=== PATIENT | male | born 1935 | race Caucasian/White ===

== ENCOUNTER 2017-06-04 08:00 | Outpatient (CLI) | payer MEDICARE, BC | END 2017-06-04 08:01 | disposition home or self-care (01) | LOC: LAB.R 08:00 | PROVIDERS: ATTEND Nurse Practitioner Primary Care | DX: N39.0 Urinary tract infection, site not specified (principal) | CPT/HCPCS: 87086 ==

== ENCOUNTER 2017-06-14 08:00 | Outpatient (CLI) | payer MEDICARE, BC ==
[2017-06-14 13:21] LABS: BILIRUBIN,URINE NEGATIVE (NEGATIVE)
[2017-06-14 13:22] LABS: UA CHARGE (STRIP ONLY) YES; UR CULTURE IF IND NOT INDICATED
== END 2017-06-14 08:01 | disposition home or self-care (01) ==
LOC: LAB.R 08:00
PROVIDERS: ATTEND Nurse Practitioner Primary Care
DX: N39.0 Urinary tract infection, site not specified (principal)
CPT/HCPCS: 81001; 81003; 87086

== ENCOUNTER 2018-08-15 16:53 | Outpatient (CLI) | payer MEDICARE, BC ==
[2018-08-15 17:13] LABS: BASOPHILS % (AUTO) 0.3 %; EOSINOPHILS # (AUTO) 0.1 10^3/uL (0.0-0.7); EOSINOPHILS % (AUTO) 2.5 %; HGB - HEMOGLOBIN 15.9 g/dL (14.0-18.0); LYMPHOCYTES # (AUTO) 1.2 10^3/uL (1.5-3.5); LYMPHOCYTES % (AUTO) 21.3 %; MEAN CORPUSCULAR HEMOGLOBIN 33.7 pg (27.0-31.0); MEAN CORPUSCULAR HGB CONC 35.3 g/dL (32.0-36.0); MEAN CORPUSCULAR VOLUME 95.4 fL (80.0-94.0); MEAN PLATELET VOLUME 8.9 fL (7.4-11.4); MONOCYTES # (AUTO) 0.7 10^3/uL (0.0-1.0); MONOCYTES % (AUTO) 11.9 %; NEUTROPHILS # (AUTO) 3.5 10^3/uL (1.5-6.6); PLT - PLATELET COUNT 145 10^3/uL (130-450); RED BLOOD COUNT 4.71 10^6/uL (4.70-6.10); RED CELL DISTRIBUTION WIDTH 13.2 % (12.0-15.0); WHITE BLOOD COUNT 5.5 x10^3/uL (4.8-10.8)
== END 2018-08-15 16:54 | disposition home or self-care (01) ==
LOC: LAB 16:53
PROVIDERS: ATTEND Ophthalmology
DX: H54.3 Unqualified visual loss, both eyes (principal)
CPT/HCPCS: 36415; 85025; 85651; 86140

== ENCOUNTER 2019-04-29 16:00 | Outpatient (CLI) | payer MEDICARE, BC | END 2019-04-29 16:01 | disposition critical access hospital (66) | LOC: EMS 16:00 | PROVIDERS: ATTEND Surgery | DX: M25.559 Pain in unspecified hip (principal); W18.39XA Other fall on same level, initial encounter; Y92.008 Other place in unspecified non-institutional (private) residence as the place of occurrence of the external cause | CPT/HCPCS: A0425; A0429 ==

== ENCOUNTER 2019-04-29 16:08 | Emergency (ER) | payer MEDICARE, BC ==
--- NOTE | 2019-04-29 16:31 | ED Physician Documentation ---
PD HPI Fall - Stated complaint Stated Complaint: GLF - History obtained from History obtained from: Patient - History of Present Illness Mechanism of injury: Lost balance Fall distance: Standing position (He does have history of balance problems. He states he lost his balance when he bent over to get something and fell to the back left. He did hit his posterior left chest against some furniture with some abrasions there but denies any pain with breathing. His main complaint is pain at the left hip which is worse with weightbearing. He has had a prior hip replacement. His was concerned about fracture or dislocation and brought him in for evaluation. He seems to be acting well and normally. He did not have any loss of consciousness. He denies any headache. He is not on any blood thinners.) Where injury occurred: Home Timing - onset: Today (8 am) Injury(ies) location: Left Lower Extremity (left hip) Associated symptoms: No: LOC, AMS, Weakness, Paresthesias Contributing factors: No: Anticoagulated Similar symptoms before: Diagnosis (balance problems baseline) Recently seen: Not recently seen Review of Systems Constitutional: denies: Fever Nose: denies: Rhinorrhea / runny nose, Congestion Throat: denies: Sore throat Cardiac: denies: Chest pain / pressure Respiratory: denies: Dyspnea GI: denies: Abdominal Pain, Nausea, Vomiting Neurologic: denies: Focal weakness, Altered mental status, Headache PD PAST MEDICAL HISTORY - Past Medical History Cardiovascular: None Respiratory: None Endocrine/Autoimmune: None - Past Surgical History Past Surgical History: Yes Ortho: Hip replacement - Present Medications Home Medications: Ambulatory Orders Medication Instructions Recorded Confirmed Aspirin/Dipyridamole [Aggrenox] 1 tab PO DAILY 05/14/16 04/29/19 Memantine [Namenda] 2 tab PO DAILY 05/14/16 04/29/19 Hydrocodone/Acetaminophen [[place] 1 each PO Q6H PRN #15 tablet 04/29/19 5-325 Tablet] - Allergies Allergies/Adverse Reactions: Allergies Allergy/AdvReac Type Severity Reaction Status Date / Time No Known Drug Allergies Allergy Verified 04/29/19 16:35 - Living Situation Living Situation: reports: With spouse/s.o. Living Arrangement: reports: At home - Social History Does the pt smoke?: No Smoking Status: Never smoker Does the pt drink ETOH?: Yes Does the pt have substance abuse?: No - Immunizations Immunizations are current?: No Immunizations: TDAP >10years/unknown PD ED PE NORMAL - Vitals Vital signs reviewed: Yes - General General: Alert and oriented X 3, No acute distress, Well developed/nourished - HEENT HEENT: Atraumatic - Neck Neck: Supple, no meningeal sign, No bony TTP - Cardiac Cardiac: RRR, No murmur - Respiratory Respiratory: Clear bilaterally, Other (no chestwall tenderness) - Abdomen Abdomen: Soft, Non tender - Derm Derm: Normal color - Extremities Extremities: Other (The left hip is tender along the lateral aspect. Passive range of motion as well as rotation and impaction do not cause pain. Active motion does hurt for him in flexion.) - Neuro Neuro: Alert and oriented X 3, No motor deficit, No sensory deficit, Normal speech Eye Opening: Spontaneous Motor: Obeys Commands Verbal: Oriented GCS Score: 15 Results - Vitals Vitals: Vital Signs - 24 hr 04/29/19 16:08 Temperature 36.6 C Heart Rate 76 Respiratory 18 Rate Blood Pressure 146/87 H O2 Saturation 95 Oxygen O2 Source Room air - Rads (name of study) left hip Radiology: Prelim report reviewed, EMP read contemporaneously (Prior hip replacement is noted. There is no obvious just location nor fractures.), See rad report PD MEDICAL DECISION MAKING - ED course Complexity details: reviewed results, considered differential, d/w patient Departure - Departure Disposition: 01 Home, Self Care Clinical Impression: Fall from slip, trip, or stumble Qualifiers: Encounter type: initial encounter Qualified Code(s): W01.0XXA - Fall on same level from slipping, tripping and stumbling without subsequent striking against object, initial encounter Contusion, hip Qualifiers: Encounter type: initial encounter Laterality: left Qualified Code(s): S70.02XA - Contusion of left hip, initial encounter Condition: Stable Record reviewed to determine appropriate education?: Yes Instructions: ED Contusion Hip Follow-Up: Braxton Magana MD [Primary Care Provider] - Prescriptions: Hydrocodone/Acetaminophen [[place] 5-325 Tablet] 1 each PO Q6H PRN #15 tablet PRN Reason: Pain Comments: No signs of fracture seen on your x-ray. The replacement is in place as well. He will presumably be sore with movement and walking for several days or so. Use Tylenol 4 times a day. He can add pain medicine if needed. Stay well- hydrated. Progress activity as able.
[2019-04-29] MEDS ORDERED: HYDROcod/ACETAM 5/325 MG TABLET PO STA (16:51)
--- NOTE | 2019-04-29 17:04 | XRAY Report ---
Reason: fall, unable to bear weight Procedure Date: 04/29/2019 Accession Number: [id number] / [id number] Procedure: XR - Hip w/Pelvis 2-3V LT CPT Code: FULL RESULT: EXAM: LEFT HIP RADIOGRAPHY EXAM DATE: 04/29/2019 04:42 PM. CLINICAL HISTORY: Fall, unable to bear weight. COMPARISON: None. TECHNIQUE: 2 views. FINDINGS: Bones: There is a left hip arthroplasty prosthesis. There is diffuse demineralization. No acute fracture or displaced fracture identified. Joints: The joint space and alignment appear preserved. Soft Tissues: There are moderate diffuse arterial vascular calcifications. IMPRESSION: 1. Diffuse demineralization. No visualized acute fracture. Bilateral total hip arthroplasty. RADIA
[2019-04-29] MEDS ORDERED: KETOROLAC 30 MG/ML VIAL IM STA (17:22)
[2019-04-29 17:51] VITALS: BP 183/106
== END 2019-04-29 17:50 | disposition home or self-care (01) ==
LOC: EDUNIT# → ED 16:08
DX: S70.02XA Contusion of left hip, initial encounter (principal); W01.0XXA Fall on same level from slipping, tripping and stumbling without subsequent striking against object, initial encounter; Y92.009 Unspecified place in unspecified non-institutional (private) residence as the place of occurrence of the external cause; R26.89 Other abnormalities of gait and mobility; Z96.642 Presence of left artificial hip joint; Z79.82 Long term (current) use of aspirin
CPT/HCPCS: 96372; 99283

== ENCOUNTER 2019-05-02 11:50 | Outpatient (CLI) | payer MEDICARE, BC | END 2019-05-02 11:51 | disposition critical access hospital (66) | LOC: EMS 11:50 | PROVIDERS: ATTEND Surgery | DX: M25.552 Pain in left hip (principal); Z91.81 History of falling | CPT/HCPCS: A0425; A0429 ==

== ENCOUNTER 2019-05-02 11:55 | Observation (INO) | payer MEDICARE, BC ==
[2019-05-02] MEDS ORDERED: oxyCODONE 5 MG TABLET PO STA (12:04)
[2019-05-02] MEDS ORDERED: MORPHINE 2 MG/ML CARPUJECT IVP STA ×3 (12:42→14:25)
[2019-05-02 13:02] LABS: BASOPHILS % (AUTO) 0.1 %; EOSINOPHILS # (AUTO) 0.1 10^3/uL (0.0-0.7); EOSINOPHILS % (AUTO) 1.5 %; HGB - HEMOGLOBIN 14.2 g/dL (14.0-18.0); LYMPHOCYTES # (AUTO) 0.7 10^3/uL (1.5-3.5); LYMPHOCYTES % (AUTO) 8.4 %; MEAN CORPUSCULAR HEMOGLOBIN 32.2 pg (27.0-31.0); MEAN CORPUSCULAR HGB CONC 32.9 g/dL (32.0-36.0); MEAN PLATELET VOLUME 10.5 fL (7.4-11.4); MONOCYTES % (AUTO) 12.2 %; NEUTROPHILS # (AUTO) 6.3 10^3/uL (1.5-6.6); NEUTROPHILS % (AUTO) 77.4 %; PLT - PLATELET COUNT 136 10^3/uL (130-450); RED BLOOD COUNT 4.41 10^6/uL (4.70-6.10); WHITE BLOOD COUNT 8.1 x10^3/uL (4.8-10.8)
[2019-05-02 13:16] LABS: ALBUMIN 3.4 g/dL (3.2-5.5); ALBUMIN/GLOBULIN RATIO 1.2 (1.0-2.2); BILIRUBIN,TOTAL 1.4 mg/dL (0.2-1.0); CALCIUM 8.6 mg/dL (8.5-10.3); CREATININE 0.8 mg/dL (0.6-1.2); TOTAL PROTEIN 6.3 g/dL (6.7-8.2)
--- NOTE | 2019-05-02 13:31 | CT Report ---
Reason: L hip pain s/p fall 1 week ago, neg xray Procedure Date: 05/02/2019 Accession Number: [id number] / [id number] Procedure: CT - LOWER EXTREMITY WO - LT CPT Code: FULL RESULT: EXAM: LEFT KNEE CT WITHOUT CONTRAST EXAM DATE: 05/02/2019 12:29 PM. CLINICAL HISTORY: L hip pain s/p fall 1 week ago, neg xray. COMPARISON: None. TECHNIQUE: Thin-section axial images were acquired of the knee without contrast. Post-processing: Coronal and sagittal reformats. Other: None. In accordance with CT protocol optimization, one or more of the following dose reduction techniques were utilized for this exam: automated exposure control, adjustment of mA and/or KV based on patient size, or use of iterative reconstructive technique. FINDINGS: Bones and articular surfaces: Diffusely demineralized. There are well corticated areas of ossification lateral to the left hip. Ossification adjacent to the greater trochanter may reflect an old avulsion injury. 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 Left total hip arthroplasty. Slight protrusio of the acetabular component. Acute or subacute fractures are demonstrated at the lateral base of the left superior pubic ramus. Comminuted fracture at the mid aspect of the left inferior pubic ramus. Visualized portion of the sacrum appears grossly intact. Lower lumbar degenerative disk and facet arthropathy. Mild degenerative change at the left sacroiliac joint. Soft tissues: Atrophy involving portions of the gluteus medius and minimus. Fatty replacement of the piriformis muscle. IMPRESSION: 1. Acute or subacute fractures involving the left superior and inferior pubic rami. RADIA
--- NOTE | 2019-05-02 13:39 | ED Physician Documentation ---
PD HPI LOWER EXT INJURY - Stated complaint Stated Complaint: L HIP PX - Chief complaint Chief Complaint: Ext Problem - History obtained from History obtained from: Patient, Family - History of Present Illness PD HPI LOW EXT INJURY LOCATION: Left, Hip Type of injury: Fall Where injury occurred: Home Timing - onset: How many days ago (3) Timing - duration: Days (3) Timing - details: Abrupt onset Pain level max: 7 Pain level now: 6 Improved by: Rest, Ice, Immobilization Worsened by: Moving, Palpating Associated symptoms: No: Weakness, Numbness, Tingling, Swelling Contributing factors: Prior ortho surgery (B hip replacements). No: Anticoagulated Similar symptoms before: Has not had sx before Recently seen: Not recently seen Review of Systems Ten Systems: 10 systems reviewed and negative Constitutional: denies: Fever, Chills Ears: denies: Ear pain Nose: denies: Rhinorrhea / runny nose, Congestion Respiratory: denies: Cough GI: denies: Nausea, Vomiting Skin: denies: Rash Musculoskeletal: denies: Neck pain, Back pain Neurologic: denies: Focal weakness, Numbness, Headache PD PAST MEDICAL HISTORY - Past Medical History Past Medical History: No Cardiovascular: None Respiratory: None Neuro: Dementia, CVA Endocrine/Autoimmune: None GI: None : None HEENT: None Psych: None Musculoskeletal: None Derm: None - Past Surgical History Past Surgical History: Yes Ortho: Hip replacement - Present Medications Home Medications: Ambulatory Orders Medication Instructions Recorded Confirmed Aspirin/Dipyridamole [Aggrenox] 1 tab PO DAILY 05/14/16 05/02/19 Memantine [Namenda] 10 mg PO BID 05/14/16 05/02/19 Latanoprost 0.005% Ophth Drops 1 drops LEFTEYE QPM 05/02/19 05/02/19 [Xalatan Ophth Drops] Meloxicam [Mobic] 15 mg PO DAILY 05/02/19 05/02/19 Silodosin 8 mg PO DAILY 05/02/19 05/02/19 Timolol 0.5% Ophth Drops [Timoptic 1 drops LEFTEYE DAILY 05/02/19 05/02/19 0.5% Ophth Drops] - Allergies Allergies/Adverse Reactions: Allergies Allergy/AdvReac Type Severity Reaction Status Date / Time No Known Drug Allergies Allergy Verified 06/19/19 16:35 - Social History Does the pt smoke?: No Smoking Status: Never smoker Does the pt drink ETOH?: Yes Does the pt have substance abuse?: No - Immunizations Immunizations are current?: No Immunizations: TDAP >10years/unknown - POLST Patient has POLST: No PD ED PE NORMAL - Vitals Vital signs reviewed: Yes - General General: Alert and oriented X 3, No acute distress - HEENT HEENT: Atraumatic, PERRL, Moist mucous membranes - Neck Neck: Supple, no meningeal sign, No bony TTP - Cardiac Cardiac: RRR - Respiratory Respiratory: No respiratory distress, Clear bilaterally - Abdomen Abdomen: Soft, Non tender, Non distended - Derm Derm: Warm and dry - Extremities Extremities: Other (R leg, chronic deformity to the foot and ankle. L leg - TTP over the pubic ramus. NVI. no ecchymosis.) - Neuro Neuro: Alert and oriented X 3 - Psych Psych: Normal mood, Normal affect Results - Vitals Vitals: Vital Signs - 24 hr 05/02/19 05/02/19 05/02/19 11:58 13:32 15:00 Temperature 37.2 C 36.9 C Heart Rate 79 64 65 Respiratory 18 16 16 Rate Blood Pressure 141/88 H 125/79 99/73 O2 Saturation 98 95 94 Oxygen O2 Source Room air - Labs Labs: Laboratory Tests 05/02/19 05/02/19 05/02/19 12:55 12:55 14:39 WBC 8.1 RBC 4.41 L Hgb 14.2 Hct 43.2 MCV 98.0 H MCH 32.2 H MCHC 32.9 RDW 13.0 Plt Count 136 MPV 10.5 Neut # (Auto) 6.3 Lymph # (Auto) 0.7 L [place] # (Auto) 1.0 Eos # (Auto) 0.1 Baso # (Auto) 0.0 Absolute Nucleated RBC 0.00 Nucleated RBC % 0.0 Sodium 135 Potassium 4.3 Chloride 100 L Carbon Dioxide 25 Anion Gap 10.0 BUN 33 H Creatinine 0.8 Estimated GFR (MDRD) 92 Glucose 143 H Calcium 8.6 Total Bilirubin 1.4 H AST 21 ALT 12 Alkaline Phosphatase 62 Total Protein 6.3 L Albumin 3.4 Globulin 2.9 Albumin/Globulin Ratio 1.2 Lipase 28 Urine Color DARK YELLOW Urine Clarity CLEAR Urine pH 6.5 Ur Specific [place] 1.020 Urine Protein TRACE Urine Glucose (UA) NEGATIVE Urine Ketones NEGATIVE Urine Occult Blood MODERATE H Urine Nitrite NEGATIVE Urine Bilirubin NEGATIVE Urine Urobilinogen 1 (NORMAL) Ur Leukocyte Esterase NEGATIVE Urine RBC 11-25 H Urine WBC 0-3 Ur Squamous Epith Cells RARE Squamous Urine Bacteria None Seen Ur Microscopic Review INDICATED Urine Culture Comments NOT INDICATED - Rads (name of study) ct L hip Radiology: Prelim report reviewed, EMP read contemporaneously, See rad report (L inferior and superior pubic rami fx.) PD MEDICAL DECISION MAKING - ED course Complexity details: reviewed results, re-evaluated patient, considered differential, d/w patient, d/w family, d/w collection systems consultant ED course: 84-year-old male with a left superior and inferior pubic ramus fracture. Nonsurgical. Patient is unable to ambulate even with several doses of IV pain medication. Unable to use a walker. He is also mostly blind. He is a 2 person max assist at this point. As we are unable to control his pain adequately for him to ambulate, will place in observation. Discussed the case with Dr. Gongora, hospitalist who accepts This document was made in part using voice recognition software. While efforts are made to proofread this document, sound alike and grammatical errors may occur. Departure - Departure Disposition: ED Place in Observation Clinical Impression: Intractable pain, Dehydration Pubic ramus fracture Qualifiers: Encounter type: initial encounter Fracture type: closed Laterality: left Qualified Code(s): S32.592A - Other specified fracture of left pubis, initial encounter for closed fracture Condition: Stable Discharge Date/Time: 05/02/19 16:23
[2019-05-02] MEDS ORDERED: SODIUM CHLORIDE 0.9% 1,000 ML IV ONE (14:25)
[2019-05-02 14:59] LABS: BILIRUBIN,URINE NEGATIVE (NEGATIVE); GLUCOSE, URINE (UA) NEGATIVE (NEGATIVE); KETONES,URINE (UA) NEGATIVE (NEGATIVE); LEUKOCYTE ESTERASE, URINE NEGATIVE (NEGATIVE); NITRITE,URINE NEGATIVE (NEGATIVE); OCCULT BLOOD,URINE MODERATE (NEGATIVE); PH,URINE 6.5 PH (5.0-7.5); PROTEIN,URINE TRACE mg/dL (NEGATIVE); UROBILINOGEN,URINE 1 (NORMAL) E.U./dL (NORMAL)
[2019-05-02 15:15] LABS: CLARITY,URINE CLEAR (CLEAR)
[2019-05-02 15:16] LABS: BACTERIA,URINE None Seen /HPF (None Seen); SQUAMOUS EPITHELIAL CELL,UR RARE Squamous (<= Few)
[2019-05-02] MEDS ORDERED: MORPHINE 2 MG/ML CARPUJECT IVP PRN (16:23)
[2019-05-02] MEDS ORDERED: oxyCODONE 5 MG TABLET PO PRN (16:23)
--- NOTE | 2019-05-02 16:33 | HISTORY & PHYSICAL EXAMINATION ---
Chief Complaint - Chief Complaint Chief Complaint: left hip pain, fall History of Present Illness - Admitted From Admitted From:: ED - History Obtained From Records Reviewed: yes History obtained from: chart review, patient, family Exam Limitations: AMS - History of Present Illness HPI Comment/Other: Rajesh Farmer is an 84-year old male with a past medical history of hypertension, proximal muscle weakness, glaucoma, macular degeneration, legal blindness, essential tremor, CVA, dementia, decubitis ulcer, left hip pain, os teoporosis, recurrent UTI, BPH, and frequent falls. The patient fell while reaching for an object 3 days ago (04/29/19) and hurt his left hip. His had to call their son-in-law to help get him off the floor. After getting up, he managed to get into the bathroom, but had severe left hip and left leg pain. They went to the ED, and were sent home since imaging revealed no fracture. He was prescribed Meloxicam, but could not manage any ambulation since arriving back home. This morning, since the patient could no longer walk, family brought him back to the ED and a new image showed a pubis ramus fracture both in the left inferior and superior that are acute and subacute. Labs show slight dehydration with a BUN of 33, chloride 100, glucose 143, total bili 1.4. Vital signs show a temp of 37.2 C, heart rate 79, blood pressure 141/88, oxygen saturation 98% on room air. The was no chest x-ray completed, but the patient has been having more coughing with food or drink lately, he has been bed bound for the past 48 hours, and he has a history of pneumonia. He has been admitted to observation for intractable pain, an inability to walk, and a PT evaluation. History - Past Medical History Cardiovascular: reports: Hypertension, High cholesterol Respiratory: reports: None Neuro: reports: Dementia, CVA (stroke 2004) Endocrine/Autoimmune: reports: None GI: reports: None LISW: reports: None : reports: Benign prostate hypertrophy, Nocturia, Frequency HEENT: reports: Chronic vision loss, Glaucoma, Macular degeneration Psych: reports: Other (dementia) Musculoskeletal: reports: Osteoarthritis, Osteoporosis, Other (DJD) Derm: reports: None MRSA Hx?: No - Past Surgical History Ortho: reports: Hip replacement Other past surgical history: hernia repair, inguinal and hydrocele. Hip replacement 1991 and 1994. Hip replacement 2006, periprostatic fracture of the right - Family & Social History Family History: Mother: , Diabetes, Type 2, Father: , COPD/Emphysema, Sister: , Alzheimer's Disease, Diabetes, Type 2, Brother: , Cancer Family History Comment/Other: Father: emphysema from WWI. Mother: DM. Brother: pancreatic cancer. Sister: DM, dementia Living arrangement: At home Living Situation: With spouse/s.o. Social History Notes: The patient lives at home with is , independently. They have 4 grown children. For the past 4 balbuena they have been traveling from [place] to [facility] and have bought a vacation home on the [place]. The patient states that he sleeps alot (all night and naps throughout the day). The patient has had increasing difficulty with ambulation at home and uses a cane, or a 4-wheeled walker. The patient has never smoked, occasional alcohol use, no illicit drug use. He wishes to be a DNR. - Substance History Use: Uses substance without health or social issues: NONE Abuse: Recurrent use of substance despite neg consequences: NONE Dependence: Experiences withdrawal or developed tolerances: NONE - POLST Patient has POLST: No POLST Status: DNR Meds/Allgy - Home Medications Home Medications: Ambulatory Orders Medication Instructions Recorded Confirmed Aspirin/Dipyridamole [Aggrenox] 1 tab PO DAILY 05/14/16 05/02/19 Memantine [Namenda] 10 mg PO BID 05/14/16 05/02/19 Latanoprost 0.005% Ophth Drops 1 drops LEFTEYE QPM 05/02/19 05/02/19 [Xalatan Ophth Drops] Meloxicam [Mobic] 15 mg PO DAILY 05/02/19 05/02/19 Silodosin 8 mg PO DAILY 05/02/19 05/02/19 Timolol 0.5% Ophth Drops [Timoptic 1 drops LEFTEYE DAILY 05/02/19 05/02/19 0.5% Ophth Drops] - Allergies Allergies/Adverse Reactions: Allergies Allergy/AdvReac Type Severity Reaction Status Date / Time No Known Drug Allergies Allergy Verified 04/29/19 16:35 Review of Systems - Constitutional Constitutional: reports: Fatigue, Weakness - Eyes Eyes: reports: Vision loss, Corrective lenses - Ears, Nose & Throat Ears, Nose & Throat: reports: Hearing loss - Cardiovascular Cariovascular: reports: Edema, Syncope, Decr. exercise tolerance - Respiratory Respiratory: reports: Cough, Snoring - Genitourinary Genitourinary: reports: Dysuria, Frequency, Nocturia - Musculoskeletal Musculoskeletal: reports: Back pain, Muscle aches, Stiffness, Limited range of motion, Muscle weakness, Joint pain, Joint swelling - Integumentary Integumentary: reports: Dryness, Other (chronic pressure ulcer) - Neurological Neurological: reports: General weakness, Focal weakness, Memory problems, Pre- existing deficit, Abnormal gait, Incoordination - Hematologic/Lymphatic Hematologic/Lymphatic: reports: Recurrent infections - All Other Systems All Other Systems: reports: Reviewed and negative Prior Level of Functionality: Lives independently, uses a cane, and at times, a 4-wheeled walker, falls a few times per year. Has not been driving for the past 2-3 years. Exam - Vital Signs Reviewed Vital Signs: Yes Vital Signs: Vital Signs x48h Temp Pulse Resp BP Pulse Ox 05/02/19 15:46 57 L 12 135/67 H 95 05/02/19 15:00 36.9 C 65 16 99/73 94 05/02/19 13:32 37.2 C 64 16 125/79 95 05/02/19 11:58 79 18 141/88 H 98 - Physical Exam General Appearance: positive: Mild distress, Lethargic Eyes Bilateral: positive: PERRL ENT: positive: Pharynx nml, Dry mucous membranes Neck: positive: Thyroid nml, No JVD, Stiff neck Respiratory: positive: Chest non-tender, No respiratory distress, Other (diminished) Cardiovascular: positive: Regular rate & rhythm, No gallop, Systolic murmur Peripheral Pulses: positive: 1+ Abdomen: positive: Non-tender, Nml bowel sounds Back: positive: Nml inspection Skin: positive: No rash, Warm, Dry, Pallor, Decubitus (buttock) Extremities: positive: Non-tender, Full ROM Neurologic/Psychiatric: positive: Oriented x3, Disoriented to time, Weakness, Sensory loss, Slurred/abnml speech (baseline sluggish speech), Depressed mood/affect Reflexes: Bicep (R): 2+, Bicep (L): 2+ Conclusion/Plan - Problem List (1) Intractable pain Conclusion/Plan: - Patient was prescribed Meloxicam at home and took around 4 doses - Since arriving in the ED, IV morphine, oxycodone has helped - Patient states that as long as he does not move, he has no pain - Unable to walk or bear weight on left leg Plan: Continue pain control, may consider ortho surgery consult, await PT evaluation (2) Fall from slip, trip, or stumble Conclusion/Plan: - The patient's admits to at least a few falls per year - Baseline shuffled gait - Uses a cane or a 4-wheeled walker at home Plan: Continue nursing cares, await PT evaluation Qualifiers: Encounter type: initial encounter Qualified Code(s): W01.0XXA - Fall on same level from slipping, tripping and stumbling without subsequent striking against object, initial encounter (3) Pubic ramus fracture Conclusion/Plan: - Fractures are acute and subacute, involving the superior and inferior pubic rami - Unable to bear weight on left leg - Uncontrolled pain Plan: Continue with pain control, PT evaluation in the AM Qualifiers: Encounter type: initial encounter Fracture type: closed Laterality: left Qualified Code(s): S32.592A - Other specified fracture of left pubis, initial encounter for closed fracture (4) Dysuria Conclusion/Plan: - May be from dehydration - May also from pelvic fracture - Having trouble once arriving to the nursing floor, unable to urinate Plan: Continue to bladder scan Q shift, indwelling lopez if bladder scans are high, give IV fluids (5) Dehydration Conclusion/Plan: - Elevated BUN, and glucose on admission - Patient has not been eating or drinking well since injury - Dry mucous membranes on exam Plan: Give gentle IV fluids, routine labs (6) BPH (benign prostatic hyperplasia) Conclusion/Plan: - Takes Rapaflo at home - Dysuria on exam, possibly retaining urine - Now non-mobile Plan: Continue med, IV fluids, bladder scans every shift, consider indwelling lopez if no improvement (7) CVA (cerebral vascular accident) Conclusion/Plan: - No known physical residual, besides worsening dementia - Takes Aggrenox, continued here Plan: Continue meds, monitor mental status (8) Dementia Conclusion/Plan: - Has not officially been screened for Parkinson's disease, but has a shuffled gait, tremors and dementia - admits to short term memory loss, repeats phrases, less speech in general - Also is known to cough after and during eating, but states this is his due to his back anatomy (scholiosis) - Takes Namenda at home, but may be contributing to falls Plan: Continue to monitor mental status, hold Namenda since we are giving narcotics (9) Osteoporosis Conclusion/Plan: - Takes vitamin D3 at home - Status post bilateral hip replacements, now with a pelvic fracture - This fall was not considered traumatic, and would not have caused fractures in someone without osteoporosis Plan: Continue to treat acute pain, continue Vitamin D3 daily (10) Recurrent UTI (urinary tract infection) Conclusion/Plan: - The patient has had several of UTIs - Now with dysuria - Also with a history of BPH, takes Rapaflo at home, continued here - Urine sample from the ED shows moderate occult, but not infection Plan: Continue to bladder scan Q shift, monitor urine output, daily labs (11) Cough Conclusion/Plan: - Patient's explains that the patient has had coughing that is more noticeable after eating or drinking - Now with prolonged bed rest for the past 48 hours since falling at home - Scattered crackles to bilateral lobes on exam - No admission chest x-ray, now ordered Plan: Incentive spirometry, await x-ray (12) Essential tremor Conclusion/Plan: - explains that this is most noticeable to the patient's right hand - Takes Namenda at home - Noted on my exam- bilateral with arms extended - Has never been worked up for Parkinson's Plan: Continue to monitor, IV fluids - Lab Results Lab results reviewed: Yes Fish Bones: 05/02/19 12:55 05/02/19 12:55 - Diagnostic Imaging Results Diagnostic Imaging Results: positive: Final report reviewed Diagnostic Imaging Results Comments: EXAM: LEFT KNEE CT WITHOUT CONTRAST EXAM DATE: 05/02/2019 12:29 PM. CLINICAL HISTORY: L hip pain s/p fall 1 week ago, neg xray. FINDINGS: Bones and articular surfaces: Diffusely demineralized. There are well corticated areas of ossification lateral to the left hip. Ossification adjacent to the greater trochanter may reflect an old avulsion injury. 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 Left total hip arthroplasty. Slight protrusio of the acetabular component. Acute or subacute fractures are demonstrated at the lateral base of the left superior pubic ramus. Comminuted fracture at the mid aspect of the left inferior pubic ramus. Visualized portion of the sacrum appears grossly intact. Lower lumbar degenerative disk and facet arthropathy. Mild degenerative change at the left sacroiliac joint. Soft tissues: Atrophy involving portions of the gluteus medius and minimus. Fatty replacement of the piriformis muscle. IMPRESSION: 1. Acute or subacute fractures involving the left superior and infe rior pubic rami. Core Measures - Anticipated LOS I expect patient to be DC'd or transferred within 96 hours.: Yes - DVT/VTE - Prophylaxis VTE/DVT Device ordered at admit?: Yes VTE/DVT Prophylaxis med ordered at admit?: Yes - Stroke - Rehab Assessment Rehab services assessment to be ordered?: Yes - AMI - Statin at Admit Aspirin Prescribed on Admit: Yes
[2019-05-02] MEDS: SODIUM CHLORIDE 0.9% 1,000 ML IV SCH (18:10)
[2019-05-02] MEDS: SODIUM CHLORIDE FLUSH 0.9% 10 ML SYRINGE IVP SCH (18:10)
--- NOTE | 2019-05-02 19:39 | XRAY Report ---
Reason: cough, AMS Procedure Date: 05/02/2019 Accession Number: [id number] / [id number] Procedure: XR - Chest 1 View X-Ray CPT Code: 50350 FULL RESULT: EXAM: CHEST RADIOGRAPHY EXAM DATE: 05/02/2019 07:08 PM. CLINICAL HISTORY: Cough. Altered mental status. COMPARISON: None. TECHNIQUE: 1 view. FINDINGS: Lungs/Pleura: Mild patchy bibasilar airspace opacities, right greater than left. Normal pulmonary vasculature. No evidence of edema. No pleural effusion or pneumothorax. Mediastinum: Mild cardiomegaly. Atherosclerotic calcifications within the aortic arch. Other: S-shaped curvature of the thoracolumbar spine. IMPRESSION: 1. Mild cardiomegaly. 2. Mild patchy bibasilar airspace opacities, which could present atelectasis or infiltrates. RADIA
[2019-05-02] MEDS: FAMOTIDINE 20 MG TABLET PO SCH (20:50)
[2019-05-02] MEDS: PATIENT OWN MED LEFTEYE SCH (20:50)
[2019-05-02] MEDS: SODIUM CHLORIDE FLUSH 0.9% 10 ML SYRINGE IVP PRN (21:09)
[2019-05-03] MEDS: SODIUM CHLORIDE 0.9% 1,000 ML IV SCH ×2 (00:30→11:24)
[2019-05-03 06:07] LABS: BASOPHILS % (AUTO) 0.3 %; EOSINOPHILS # (AUTO) 0.2 10^3/uL (0.0-0.7); EOSINOPHILS % (AUTO) 3.9 %; HGB - HEMOGLOBIN 12.6 g/dL (14.0-18.0); LYMPHOCYTES # (AUTO) 1.1 10^3/uL (1.5-3.5); LYMPHOCYTES % (AUTO) 18.4 %; MEAN CORPUSCULAR HEMOGLOBIN 32.8 pg (27.0-31.0); MEAN CORPUSCULAR HGB CONC 33.4 g/dL (32.0-36.0); MEAN CORPUSCULAR VOLUME 98.2 fL (80.0-94.0); MEAN PLATELET VOLUME 10.6 fL (7.4-11.4); MONOCYTES # (AUTO) 0.9 10^3/uL (0.0-1.0); MONOCYTES % (AUTO) 14.6 %; NEUTROPHILS # (AUTO) 3.7 10^3/uL (1.5-6.6); NEUTROPHILS % (AUTO) 62.6 %; PLT - PLATELET COUNT 125 10^3/uL (130-450); RED BLOOD COUNT 3.84 10^6/uL (4.70-6.10); WHITE BLOOD COUNT 5.9 x10^3/uL (4.8-10.8)
[2019-05-03 06:19] LABS: ALBUMIN 2.9 g/dL (3.2-5.5); ALBUMIN/GLOBULIN RATIO 1.1 (1.0-2.2); BILIRUBIN,TOTAL 1.1 mg/dL (0.2-1.0); CALCIUM 8.1 mg/dL (8.5-10.3); CREATININE 0.7 mg/dL (0.6-1.2); MAGNESIUM 2.1 mg/dL (1.7-2.8); PHOSPHORUS 3.5 mg/dL (2.5-4.6); TOTAL PROTEIN 5.5 g/dL (6.7-8.2)
[2019-05-03] MEDS: SODIUM CHLORIDE FLUSH 0.9% 10 ML SYRINGE IVP SCH ×3 (06:37→20:07)
[2019-05-03] MEDS: MELOXICAM 7.5 MG TABLET PO SCH ×3 (09:18→10:48)
[2019-05-03] MEDS: FAMOTIDINE 20 MG TABLET PO SCH ×2 (09:18→20:31)
[2019-05-03] MEDS: ENOXAPARIN 40 MG/0.4 ML SYRINGE SUBQ SCH (09:18)
[2019-05-03] MEDS: ASPIRIN/DIPYRIDAMOLE 25 MG/200 MG CAPSULE PO SCH (09:22)
[2019-05-03] MEDS: POLYETHYLENE GLYCOL 3350 17 GM PACKET PO SCH ×2 (09:22→15:09)
[2019-05-03] MEDS: TIMOLOL 0.5% OPHTH DROPS LEFTEYE SCH (09:26)
[2019-05-03] MEDS ORDERED: traMADol 50 MG TABLET PO PRN ×2 (12:33→19:08)
[2019-05-03] MEDS: ACETAMINOPHEN 325 MG TABLET PO PRN ×2 (12:57→20:31)
--- NOTE | 2019-05-03 14:30 | PROVIDER PROGRESS NOTE ---
Subjective - Prog Note Date Prog Note Date: 05/03/19 Prog Note Time: 14:28 - Subjective Pt reports feeling: Improved Subjective: Bryn continues to have intractable pain primarily in his left hip with movement. He has been requiring IV pain medications and his complaints that the oxycodone is "making him more confused". He denies any new symptoms such as chest pain, shortness of breath, nausea, vomiting, a rash, dizziness, or a new cough. Current Medications - Current Medications Current Medications: Active Medications: Acetaminophen (Tylenol) 650 mg PO Q4HR PRN Dipyridamole/Aspirin (Aggrenox) 1 cap PO DAILY JAROCHO Enoxaparin Sodium (Lovenox) 40 mg SUBQ DAILY JAROCHO Famotidine (Pepcid) 20 mg PO BID JAROCHO Morphine Sulfate (Morphine (Carpuject)) 2 mg IVP Q2HR PRN Patient Own Medication (Patient Own Medication) 1 each LEFTEYE QPM JAROCHO Timolol 0.5% Ophth (Drops) 1 each LEFTEYE DAILY JAROCHO Polyethylene Glycol (Miralax) 17 gm PO DAILY JAROCHO Tramadol HCl (Ultram) 25 mg PO Q4HR PRN HOME meds: Aspirin/Dipyridamole [Aggrenox] 1 tab PO DAILY 05/14/16 Memantine [Namenda] 10 mg PO BID 05/14/16 Latanoprost 0.005% Ophth Drops [Xalatan Ophth Drops] 1 drops LEFTEYE QPM 05/02/19 Meloxicam [Mobic] 15 mg PO DAILY 05/02/19 Silodosin 8 mg PO DAILY 05/02/19 Timolol 0.5% Ophth Drops [Timoptic 0.5% Ophth Drops] 1 drops LEFTEYE DAILY 05/02/19 Objective - Vital Signs/Intake & Output Reviewed Vital Signs: Yes Vital Signs: Vital Signs x48h Temp Pulse Pulse Resp Resp BP BP 05/03/19 10:40 70 15 159/81 H 05/03/19 09:00 37.2 C 74 18 129/75 Pulse Ox Pulse Ox 05/03/19 10:40 94 05/03/19 09:00 92 Intake & Output: Intake & Output 04/30/19 05/01/19 05/02/19 05/03/19 23:59 23:59 23:59 23:59 Intake Total 460 1973.333 Output Total 400 Balance 460 9335.333 - Objective General Appearance: positive: Alert, Moderate distress, Lethargic Eyes Bilateral: positive: PERRL Eyes: OU Conjunctivae pale, OU Scleral icterus ENT: positive: Pharynx nml, Dry mucous membranes Neck: positive: Thyroid nml, No JVD, Trachea midline Respiratory: positive: Chest non-tender, No respiratory distress Cardiovascular: positive: Regular rate & rhythm, No gallop, Systolic murmur, Decreased pulse(s) Peripheral Pulses: 1+ Radial (R), 1+ Radial (L) Abdomen: positive: Non-tender, Nml bowel sounds, Other (rounded, soft) Back: positive: Nml inspection Skin: positive: No rash, Warm, Dry, Pallor Extremities: positive: Pedal edema, Joint swelling, Other (loss of function to BLEs) Neurologic/Psychiatric: positive: Disoriented to time, Weakness, Sensory loss, Slurred/abnml speech (baseline sluggish speech d/t dementia), Depressed mood/affect Reflexes: Bicep (R): 3+, Bicep (L): 3+ - Lab Results Fish Bones: 05/04/19 05:38 05/04/19 05:38 Other Labs: Lab Results x24hrs 05/03/19 05/03/19 05/02/19 Range/Units 05:45 05:45 14:39 WBC 5.9 (4.8-10.8) x10^3/uL RBC 3.84 L (4.70-6.10) 10^6/uL Hgb 12.6 L (14.0-18.0) g/dL Hct 37.7 L (42.0-52.0) % MCV 98.2 H (80.0-94.0) fL MCH 32.8 H (27.0-31.0) pg MCHC 33.4 (32.0-36.0) g/dL RDW 13.0 (12.0-15.0) % Plt Count 125 L (130-450) 10^3/uL MPV 10.6 (7.4-11.4) fL Neut # (Auto) 3.7 (1.5-6.6) 10^3/uL Lymph # (Auto) 1.1 L (1.5-3.5) 10^3/uL [place] # (Auto) 0.9 (0.0-1.0) 10^3/uL Eos # (Auto) 0.2 (0.0-0.7) 10^3/uL Baso # (Auto) 0.0 (0.0-0.1) 10^3/uL Absolute Nucleated RBC 0.00 x10^3/uL Nucleated RBC % 0.0 /100WBC Sodium 134 L (135-145) mmol/L Potassium 3.8 (3.5-5.0) mmol/L Chloride 103 (101-111) mmol/L Carbon Dioxide 24 (21-32) mmol/L Anion Gap 7.0 (6-13) BUN 30 H (6-20) mg/dL Creatinine 0.7 (0.6-1.2) mg/dL Estimated GFR (MDRD) 107 (>89) Glucose 102 H (70-100) mg/dL Calcium 8.1 L (8.5-10.3) mg/dL Phosphorus 3.5 (2.5-4.6) mg/dL Magnesium 2.1 (1.7-2.8) mg/dL Total Bilirubin 1.1 H (0.2-1.0) mg/dL AST 17 (10-42) IU/L ALT 11 (10-60) IU/L Alkaline Phosphatase 53 (42-121) IU/L Total Protein 5.5 L (6.7-8.2) g/dL Albumin 2.9 L (3.2-5.5) g/dL Globulin 2.6 (2.1-4.2) g/dL Albumin/Globulin Ratio 1.1 (1.0-2.2) Urine Color DARK YELLOW Urine Clarity CLEAR (CLEAR) Urine pH 6.5 (5.0-7.5) PH Ur Specific [place] 1.020 (1.002-1.030) Urine Protein TRACE (NEGATIVE) mg/dL Urine Glucose (UA) NEGATIVE (NEGATIVE) mg/dL Urine Ketones NEGATIVE (NEGATIVE) mg/dL Urine Occult Blood MODERATE H (NEGATIVE) Urine Nitrite NEGATIVE (NEGATIVE) Urine Bilirubin NEGATIVE (NEGATIVE) Urine Urobilinogen 1 (NORMAL) (NORMAL) E.U./dL Ur Leukocyte Esterase NEGATIVE (NEGATIVE) Urine RBC 11-25 H (0-5) /HPF Urine WBC 0-3 (0-3) /HPF Ur Squamous Epith Cells RARE Squamous (<= Few) Urine Bacteria None Seen (None Seen) /HPF Ur Microscopic Review INDICATED Urine Culture Comments NOT INDICATED ABX Reporting Has patient been on IV antibiotics over the past 48 hours?: No Assessment/Plan - Problem List (1) Unable to ambulate Impression: - Per PT evaluation: The patient stood for about 2-3 minutes with patient trying to shuffle feet in prep for transfer to chair. Patient however unable to progress to chair, leaning excessively to the left - Very difficult for the staff to get the patient to the chair, pain continues to be unmanaged Plan: Continue to encourage ambulation, continue to adjust pain meds (2) Intractable pain Impression: - The patient becomes acutely confused, and even impulsive with the oxycodone, confirmed by - IV morphine has been effective, but not compatible with going home or to a jail - Changing medications today to tylenol, and will try tramadol - After the first dose of tramadol, the patient's complained that this too was too sedating, and also caused confusion - Now the dose has been cut in half - NSAIDs contraindicated as the patient is on Aggrenox - PT is working with him, and suggests SNF placement, and in the chair for meals Plan: Offer tylenol first, try the 1/2 dose of tramadol, monitor for improvemen t (3) Fall from slip, trip, or stumble Impression: - The patient's admits to at least a few falls per year - Baseline shuffled gait - Uses a cane or a 4-wheeled walker at home Plan: Continue nursing cares, await PT evaluation Qualifiers: Encounter type: initial encounter Qualified Code(s): W01.0XXA - Fall on same level from slipping, tripping and stumbling without subsequent striking against object, initial encounter (4) Pubic ramus fracture Impression: - Per PT evaluation: The patient stood for about 2-3 minutes with patient trying to shuffle feet in prep for transfer to chair. Patient however unable to progress to chair, leaning excessively to the left - The patient's admits to at least a few falls per year - Baseline shuffled gait - Uses a cane or a 4-wheeled walker at home Plan: Continue nursing cares, PT daily, SNF placement Qualifiers: Encounter type: initial encounter Fracture type: closed Laterality: left Qualified Code(s): S32.592A - Other specified fracture of left pubis, initial encounter for closed fracture (5) Dysuria Impression: - May be from dehydration - May also from pelvic fracture - Having trouble once arriving to the nursing floor, unable to urinate - Bladder scanned for 187 mL post void, no values since - Suspect BPH and worsened by narcotic use Plan: Continue to monitor (6) Dehydration Impression: - Elevated BUN, and glucose on admission - Patient has not been eating or drinking well since injury - Dry mucous membranes on exam Plan: Routine labs (7) BPH (benign prostatic hyperplasia) Impression: - Takes Rapaflo at home - Dysuria on exam, possibly retaining urine - Now non-mobile Plan: Continue med, IV fluids, bladder scans every shift, consider indwelling lopez if no improvement (8) CVA (cerebral vascular accident) Impression: - No known physical residual, besides worsening dementia - Takes Aggrenox, continued here Plan: Continue meds, monitor mental status (9) Dementia Impression: - Has not officially been screened for Parkinson's disease, but has a shuffled gait, tremors and dementia - admits to short term memory loss, repeats phrases, less speech in general - Also is known to cough after and during eating, but states this is his due to his back anatomy (scholiosis) - Takes Namenda at home, but may be contributing to falls Plan: Continue to monitor mental status, hold Namenda since we are giving narcotics (10) Osteoporosis Impression: - Takes vitamin D3 at home - Status post bilateral hip replacements, now with a pelvic fracture - This fall was not considered traumatic, and would not have caused fractures in someone without osteoporosis Plan: Continue to treat acute pain, continue Vitamin D3 daily (11) Recurrent UTI (urinary tract infection) Impression: - The patient has had several of UTIs - Now with dysuria - Also with a history of BPH, takes Rapaflo at home, continued here - Urine sample from the ED shows moderate occult, but not infection Plan: Continue to bladder scan Q shift, monitor urine output, daily labs (12) Cough Impression: - Patient's explains that the patient has had coughing that is more not iceable after eating or drinking - Now with prolonged bed rest for the past 48 hours since falling at home - Scattered crackles to bilateral lobes on exam - Chest x-ray shows no infectious infiltrates Plan: Incentive spirometry, give cough suppressants if needed (13) Essential tremor Impression: - explains that this is most noticeable to the patient's right hand - Takes Namenda at home - Noted on my exam- bilateral with arms extended - Has never been worked up for Parkinson's Plan: Continue to monitor
[2019-05-03] MEDS: SODIUM CHLORIDE FLUSH 0.9% 10 ML SYRINGE IVP PRN (15:09)
[2019-05-03] MEDS: PATIENT OWN MED LEFTEYE SCH (20:32)
[2019-05-04] MEDS: SODIUM CHLORIDE FLUSH 0.9% 10 ML SYRINGE IVP SCH ×2 (00:17→09:22)
[2019-05-04 05:47] LABS: BASOPHILS % (AUTO) 0.3 %; EOSINOPHILS # (AUTO) 0.2 10^3/uL (0.0-0.7); EOSINOPHILS % (AUTO) 2.7 %; LYMPHOCYTES # (AUTO) 1.1 10^3/uL (1.5-3.5); LYMPHOCYTES % (AUTO) 18.1 %; MEAN CORPUSCULAR HEMOGLOBIN 32.5 pg (27.0-31.0); MEAN CORPUSCULAR HGB CONC 33.7 g/dL (32.0-36.0); MEAN CORPUSCULAR VOLUME 96.3 fL (80.0-94.0); MEAN PLATELET VOLUME 10.4 fL (7.4-11.4); MONOCYTES # (AUTO) 0.7 10^3/uL (0.0-1.0); MONOCYTES % (AUTO) 12.1 %; NEUTROPHILS % (AUTO) 66.3 %; PLT - PLATELET COUNT 134 10^3/uL (130-450); RED BLOOD COUNT 4.31 10^6/uL (4.70-6.10); RED CELL DISTRIBUTION WIDTH 12.7 % (12.0-15.0)
[2019-05-04 06:01] LABS: ALBUMIN 3.1 g/dL (3.2-5.5); ALBUMIN/GLOBULIN RATIO 1.2 (1.0-2.2); BILIRUBIN,TOTAL 1.3 mg/dL (0.2-1.0); CALCIUM 8.5 mg/dL (8.5-10.3); CREATININE 0.7 mg/dL (0.6-1.2); CRP - C-REACTIVE PROTEIN 4.2 mg/dL (0-1.0); PHOSPHORUS 3.1 mg/dL (2.5-4.6); TOTAL PROTEIN 5.7 g/dL (6.7-8.2)
[2019-05-04] MEDS: ASPIRIN/DIPYRIDAMOLE 25 MG/200 MG CAPSULE PO SCH (09:21)
[2019-05-04] MEDS: POLYETHYLENE GLYCOL 3350 17 GM PACKET PO SCH (09:22)
[2019-05-04] MEDS: FAMOTIDINE 20 MG TABLET PO SCH (09:22)
[2019-05-04] MEDS: ENOXAPARIN 40 MG/0.4 ML SYRINGE SUBQ SCH (09:22)
[2019-05-04] MEDS: ACETAMINOPHEN 325 MG TABLET PO PRN (09:22)
[2019-05-04] MEDS: TIMOLOL 0.5% OPHTH DROPS LEFTEYE SCH (09:24)
--- NOTE | 2019-05-04 10:55 | Discharge Plan ---
Discharge Plan Disposition: Home Health Service Condition: Fair Prescriptions: Acetaminophen [Tylenol] 650 mg PO Q4HR PRN #90 tablet PRN Reason: Pain Or Fever > 38c (100.4f) Diet: Regular Activity Restrictions: Wt Bearing as Tolerated Shower Restrictions: No Assistance Devices: Walker Instruction Topics: Acetaminophen Tramadol tablets, Acetaminophen Oral tablet extended-release, ED Fx Pelvis Health Concerns: Pain control Dementia Inability to walk Plan of Treatment: Home health physical therapy, occupational therapy Pain control Minimize sedation, and further falls Care Goals: Gain the ability to walk independently Gain the ability of independent ADLs Prevent further falls Assessment: You were admitted for intractable pain due to your pelvic fracture caused by a fall several days ago. Getting your medications adjusted was the most challenging part as these cause sedation. We suggest that you stop the Namenda, as this can potentially lead to ongoing weakness, falls. You should continue taking tylenol regularly for best pain control and you ref used my offer for Tramadol. Meloxicam should not be taken with the Aggrenox as this mixture can cause bleeding. Also avoid all (NSAIDs) such as Aleve, ibuprofen, aspirin when taking Aggrenox. I have ordered home health for PT/OT, and you will be transported via BLS today. Please see your PCP within one week. Follow-Up Care: Home Health - PT, Home Health - OT No Smoking: If you smoke, Please STOP! Call for help. Follow-up with: Braxton Magana MD [Primary Care Provider] -
--- NOTE | 2019-05-04 12:11 | DISCHARGE SUMMARY ---
Discharge Summary Admit Date: 05/02/19 Discharge Date: 05/04/19 Discharging Provider: MARIXA Conway Primary Care Provider: Braxton Magana Code Status: Do Not Attempt Resuscitation Condition at Discharge: Fair Discharge Disposition: Home Health Service - DIAGNOSES Admission Diagnoses: Intractable pain Fall from slip, trip, or stumble Pubic ramus fracture Dysuria Dehydration BPH (benign prostatic hyperplasia) CVA (cerebral vascular accident) Dementia Osteoporosis Recurrent UTI Cough Essential tremor Discharge Diagnoses with Status of Each Condition: Intractable pain- resolved Unable to ambulate- Improved after medications adjustment Fall from slip, trip, or stumble- chronic, advised to stop Namenda as this may lead to increased falls Pubic ramus fracture- new on this admission, now able to sit in the chair Dysuria- chronic, encouraged fluids Dehydration- improved BPH (benign prostatic hyperplasia)- chronic, stable CVA (cerebral vascular accident)- chronic, stable Dementia- chronic, recommended to stop Namenda Osteoporosis- chronic, stable Recurrent UTI- chronic, stable Cough- chronic, no signs of infection Essential tremor- chronic, recommend testing for Parkinson's - HPI History of Present Illness: Rajesh Farmer is an 84-year old male with a past medical history of hypertension, proximal muscle weakness, glaucoma, macular degeneration, legal blindness, essential tremor, CVA, dementia, decubitis ulcer, left hip pain, osteoporosis, recurrent UTI, BPH, and frequent falls. The patient fell while reaching for an object 3 days ago (04/29/19) and hurt his left hip. His had to call their son-in-law to help get him off the floor. After getting up, he managed to get into the bathroom, but had severe left hip and left leg pain. They went to the ED, and were sent home since imaging revealed no fracture. He was prescribed Meloxicam, but could not manage any ambulation since arriving back home. This morning, since the patient could no longer walk, family brought him back to the ED and a new image showed a pubis ramus fracture both in the left inferior and superior that are acute and subacute. Labs show slight dehydration with a BUN of 33, chloride 100, glucose 143, total bili 1.4. Vital signs show a temp of 37.2 C, heart rate 79, blood pressure 141/88, oxygen saturation 98% on room air. The was no chest x-ray completed, but the patient has been having more coughing with food or drink lately, he has been bed bound for the past 48 hours, and he has a history of pneumonia. He has been admitted to observation for intractable pain, an inability to walk, and a PT evaluation. - ALLERGIES Allergies/Adverse Reactions: Allergies Allergy/AdvReac Type Severity Reaction Status Date / Time No Known Drug Allergies Allergy Verified 04/29/19 16:35 - MEDICATIONS Home Medications: Ambulatory Orders Medication Instructions Recorded Confirmed Aspirin/Dipyridamole [Aggrenox] 1 tab PO DAILY 05/14/16 05/02/19 Latanoprost 0.005% Ophth Drops 1 drops LEFTEYE QPM 05/02/19 05/02/19 [Xalatan Ophth Drops] Silodosin 8 mg PO DAILY 05/02/19 05/02/19 Timolol 0.5% Ophth Drops [Timoptic 1 drops LEFTEYE DAILY 05/02/19 05/02/19 0.5% Ophth Drops] Acetaminophen [Tylenol] 650 mg PO Q4HR PRN #90 tablet 05/04/19 - PHYSICAL EXAM AT DISCHARGE General Appearance: positive: No acute distress, Alert Eyes Bilateral: positive: PERRL, No lid inflammation ENT: positive: Pharynx nml, Dry mucous membranes Neck: positive: No JVD Respiratory: positive: Chest non-tender, No respiratory distress, Other (dimini shed) Cardiovascular: positive: Regular rate & rhythm, No gallop, Systolic murmur Peripheral Pulses: positive: 2+ Abdomen: positive: Non-tender, Nml bowel sounds, Hepatomegaly, Other (rounded, soft) Back: positive: Nml inspection Skin: positive: No rash, Warm, Dry, Pallor, Laceration (cm) (on back side, see chart for photos) Extremities: positive: Pedal edema, Joint swelling (left greater than right hip swelling) Neurologic/Psychiatric: positive: Disoriented to time, Weakness, Sensory loss, Slurred/abnml speech, Depressed mood/affect, Other (baseline moderate dementia) Reflexes: Bicep (R): 2+, Bicep (L): 2+ - LABS Result Diagrams: 05/04/19 05:38 05/04/19 05:38 - FOLLOW UP Follow Up: Disposition: Home Health Service Condition: Fair Prescriptions: Acetami nophen [Tylenol] 650 mg PO Q4HR PRN #90 tablet PRN Reason: Pain Or Fever > 38c (100.4f) Diet: Regular Activity Restrictions: Wt Bearing as Tolerated Assistance Devices: Walker Health Concerns: Pain control, Dementia, Inability to walk Plan of Treatment: Home health physical therapy, occupational therapy, Pain control, Minimize sedation, and further falls Care Goals: Gain the ability to walk independently, Gain the ability of independent ADLs, Prevent further falls Assessment: You were admitted for intractable pain due to your pelvic fracture caused by a fall several days ago. Getting your medications adjusted was the most challenging part as these cause sedation. We suggest that you stop the Namenda, as this can potentially lead to ongoing weakness, falls. You should continue taking tylenol regularly for best pain control and you refused my offer for Tramadol. Meloxicam should not be taken with the Aggrenox as this mixture can cause bleeding. Also avoid all (NSAIDs) such as Aleve, ibuprofen, aspirin when taking Aggrenox. I have ordered home health for PT/OT, and you will be transported via BLS today. Please see your PCP within one week. - TIME SPENT Time Spent in Discharge (Minutes): 50
[2019-05-04 12:24] VITALS: BP 180/78
== END 2019-05-04 13:00 | disposition home health service (06) ==
LOC: EDBD → EDUNIT# → ED 11:55 → OBS 15:16
PROVIDERS: ADMIT Nurse Practitioner; ATTEND Nurse Practitioner
DX: S32.592A Other specified fracture of left pubis, initial encounter for closed fracture (principal); W01.0XXA Fall on same level from slipping, tripping and stumbling without subsequent striking against object, initial encounter; Y92.009 Unspecified place in unspecified non-institutional (private) residence as the place of occurrence of the external cause; M81.0 Age-related osteoporosis without current pathological fracture; N40.1 Benign prostatic hyperplasia with lower urinary tract symptoms; R35.1 Nocturia; R35.0 Frequency of micturition; R30.0 Dysuria; E86.0 Dehydration; F03.90 Unspecified dementia, unspecified severity, without behavioral disturbance, psychotic disturbance, mood disturbance, and anxiety; I10 Essential (primary) hypertension; G25.0 Essential tremor; E78.00 Pure hypercholesterolemia, unspecified; L89.309 Pressure ulcer of unspecified buttock, unspecified stage; M62.81 Muscle weakness (generalized); R05 Cough; H40.9 Unspecified glaucoma; H35.30 Unspecified macular degeneration; H54.8 Legal blindness, as defined in USA; R26.89 Other abnormalities of gait and mobility; H91.90 Unspecified hearing loss, unspecified ear; R73.9 Hyperglycemia, unspecified; Z66 Do not resuscitate; R29.6 Repeated falls; Z91.81 History of falling; M41.9 Scoliosis, unspecified; Z86.73 Personal history of transient ischemic attack (TIA), and cerebral infarction without residual deficits; Z87.440 Personal history of urinary (tract) infections; Z87.01 Personal history of pneumonia (recurrent); Z96.643 Presence of artificial hip joint, bilateral
CPT/HCPCS: 36415; 71045; 73700; 80053; 81001; 83605; 83690; 83735; 84100; 85025; 86140; 96361; 96372; 96374; 96376; 97162; 99284; 99285; A9270; G0378; J1650; 81003; 84443; 87086

== ENCOUNTER 2019-05-04 13:10 | Outpatient (CLI) | payer MEDICARE, BC | END 2019-05-04 13:11 | disposition home or self-care (01) | LOC: EMS 13:10 | PROVIDERS: ATTEND Surgery | DX: S32.9XXA Fracture of unspecified parts of lumbosacral spine and pelvis, initial encounter for closed fracture (principal); F03.90 Unspecified dementia, unspecified severity, without behavioral disturbance, psychotic disturbance, mood disturbance, and anxiety | CPT/HCPCS: A0425; A0428 ==

== ENCOUNTER 2019-05-19 12:25 | Outpatient (CLI) | payer MEDICARE, BC | END 2019-05-19 12:26 | disposition critical access hospital (66) | LOC: EMS 12:25 | PROVIDERS: ATTEND Surgery | DX: R31.9 Hematuria, unspecified (principal); R50.9 Fever, unspecified | CPT/HCPCS: A0425; A0429 ==

== ENCOUNTER 2019-05-19 15:33 | Inpatient (IN) | payer MEDICARE, BC ==
[2019-05-19] MEDS ORDERED: SODIUM CHLORIDE 0.9% 1,000 ML IV ONE (15:42)
[2019-05-19] MEDS ORDERED: cefTRIAXone 1 GM VIAL IVP STA (15:42)
--- NOTE | 2019-05-19 15:46 | ED Physician Documentation ---
History of Present Illness - Stated complaint Stated Complaint: CHILLS - History obtained from History obtained from: Patient, Family, EMS - History of Present Illness Timing: Today Pain level max: 0 Pain level now: 0 - Additonal information Additional information: states blood in urine today and temp of 102 with chills and shaking. Patient lives at home with his . Was recently admitted for a pelvic fracture. Has home health care. Today he was shaking with chills in his chair. Temp was 102. Noted blood in the urine. Nothing makes it better or worse. Has had a mild cough as well. No vomiting. No diarrhea. 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 : Benign prostate hypertrophy, Nocturia, Frequency HEENT: Chronic vision loss, Glaucoma, Macular degeneration Psych: Other Musculoskeletal: Osteoarthritis, Osteoporosis, Other Derm: None - Past Surgical History Past Surgical History: Yes Ortho: Hip replacement - Present Medications Home Medications: Ambulatory Orders Medication Instructions Recorded Confirmed Aspirin/Dipyridamole [Aggrenox] 1 cap PO DAILY 05/14/16 05/19/19 Latanoprost 0.005% Ophth Drops 1 drops LEFTEYE QPM 05/02/19 05/19/19 [Xalatan Ophth Drops] Silodosin 8 mg PO DAILY 05/02/19 05/19/19 Timolol 0.5% Ophth Drops [Timoptic 1 drops LEFTEYE BID 05/02/19 05/19/19 0.5% Ophth Drops] Cholecalciferol (Vitamin D3) 2,000 unit PO DAILY 05/19/19 05/19/19 [Vitamin D] Meloxicam 15 mg PO DAILY PRN 05/19/19 05/19/19 Memantine HCl [Namenda] 10 mg PO BID 05/19/19 05/19/19 - Allergies Allergies/Adverse Reactions: Allergies Allergy/AdvReac Type Severity Reaction Status Date / Time No Known Drug Allergies Allergy Verified 05/19/19 16:05 - Social History Does the pt smoke?: No Smoking Status: Never smoker Does the pt drink ETOH?: Yes Does the pt have substance abuse?: No - Immunizations Immunizations are current?: No Immunizations: TDAP >10years/unknown - POLST Patient has POLST: No POLST Status: DNR PD ED PE NORMAL - Vitals Vital signs reviewed: Yes - General General: No acute distress, Other (Alert, oriented to person only) - HEENT HEENT: PERRL, Moist mucous membranes - Neck Neck: Supple, no meningeal sign - Cardiac Cardiac: RRR, Strong equal pulses - Respiratory Respiratory: No respiratory distress, Clear bilaterally - Abdomen Abdomen: Soft, Non tender, Non distended - Back Back: No spinal TTP - Derm Derm: Warm and dry - Extremities Extremities: No calf tenderness / cord - Neuro Neuro: No motor deficit, No sensory deficit, Other (Alert) - Psych Psych: Normal mood, Normal affect Results - Vitals Vitals: Vital Signs - 24 hr 05/19/19 05/19/19 05/19/19 15:40 16:00 16:15 Temperature 40.3 C H Heart Rate 133 H 131 H 113 H Respiratory 34 H 33 H 34 H Rate Blood Pressure 151/87 H 147/76 H O2 Saturation 92 89 L 94 Oxygen O2 Source [Without Activity] Room air O2 Source Nasal cannula Oxygen Flow Rate 2 - Labs Labs: Laboratory Tests 05/19/19 05/19/19 05/19/19 15:50 15:56 15:56 WBC 3.1 L RBC 4.44 L Hgb 15.0 Hct 42.8 MCV 96.4 H MCH 33.8 H MCHC 35.0 RDW 13.3 Plt Count 164 MPV 10.0 Neut # (Auto) 2.9 Lymph # (Auto) 0.1 L [place] # (Auto) 0.0 Eos # (Auto) 0.0 Baso # (Auto) 0.0 Absolute Nucleated RBC 0.00 Nucleated RBC % 0.0 Lactic Acid 2.9 H Urine Color YELLOW Urine Clarity CLOUDY Urine pH 6.0 Ur Specific [place] 1.015 Urine Protein TRACE Urine Glucose (UA) NEGATIVE Urine Ketones NEGATIVE Urine Occult Blood LARGE H Urine Nitrite POSITIVE H Urine Bilirubin NEGATIVE Urine Urobilinogen 0.2 (NORMAL) Ur Leukocyte Esterase SMALL H Urine RBC TNTC H Urine WBC >25 H Urine WBC Clumps PRESENT Ur Squamous Epith Cells NONE SEEN Urine Bacteria Many H Ur Microscopic Review INDICATED Urine Culture Comments INDICATED - Rads (name of study) cxr Radiology: Prelim report reviewed, EMP read contemporaneously, See rad report (Linear scarring at the lateral left base, no acute infiltrate identified. Cardiomegaly without CHF.) PD MEDICAL DECISION MAKING - ED course Complexity details: reviewed old records, reviewed results, re-evaluated patient, considered differential, d/w patient, d/w family, d/w interior design consultant ED course: 84-year-old male, DNR, presents to the emergency department with what appears to be urosepsis. Given IV fluids, IV antibiotics. Started on the sepsis protocol. Discussed the case with Dr. Petersen, hospitalist who accepts. This document was made in part using voice recognition software. While efforts are made to proofread this document, sound alike and grammatical errors may occur. - Sepsis Event Current Stage of Sepsis: Sepsis Possible source of Sepsis: Genitourinary Mental/Cognitive Status: Normal for patient, Confused Reason for not giving 30ml/kg crystalloid fluids: Fluid overload potential Capillary refill: Less than 2 seconds Peripheral Pulse Strength: 3+ Normal Peripheral Pulse Location: Radial Bedside ultrasound performed: No Departure - Departure Disposition: 66 [facility] DC/Xfer Clinical Impression: Septicemia, Hypoxia Fever Qualifiers: Fever type: unspecified Qualified Code(s): R50.9 - Fever, unspecified UTI (urinary tract infection) Qualifiers: Urinary tract infection type: acute cystitis Hematuria presence: with hematuria Qualified Code(s): N30.01 - Acute cystitis with hematuria Condition: Serious Discharge Date/Time: 05/19/19 17:36
[2019-05-19] MEDS ORDERED: ACETAMINOPHEN 1,000 MG/100 ML 100 ML IV STA (15:51)
[2019-05-19 16:03] LABS: EOSINOPHILS % (AUTO) 0.3 %; LYMPHOCYTES # (AUTO) 0.1 10^3/uL (1.5-3.5); LYMPHOCYTES % (AUTO) 4.2 %; MEAN CORPUSCULAR HEMOGLOBIN 33.8 pg (27.0-31.0); MEAN CORPUSCULAR VOLUME 96.4 fL (80.0-94.0); NEUTROPHILS # (AUTO) 2.9 10^3/uL (1.5-6.6); NEUTROPHILS % (AUTO) 94.2 %; PLT - PLATELET COUNT 164 10^3/uL (130-450); RED BLOOD COUNT 4.44 10^6/uL (4.70-6.10); RED CELL DISTRIBUTION WIDTH 13.3 % (12.0-15.0); WHITE BLOOD COUNT 3.1 x10^3/uL (4.8-10.8)
[2019-05-19 16:17] LABS: BILIRUBIN,URINE NEGATIVE (NEGATIVE); GLUCOSE, URINE (UA) NEGATIVE (NEGATIVE); KETONES,URINE (UA) NEGATIVE (NEGATIVE); LEUKOCYTE ESTERASE, URINE SMALL (NEGATIVE); NITRITE,URINE POSITIVE (NEGATIVE); OCCULT BLOOD,URINE LARGE (NEGATIVE); PROTEIN,URINE TRACE mg/dL (NEGATIVE); UROBILINOGEN,URINE 0.2 (NORMAL) E.U./dL (NORMAL)
[2019-05-19] MEDS ORDERED: SODIUM CHLORIDE FLUSH 0.9% 10 ML SYRINGE IVP PRN (16:25)
[2019-05-19] MEDS ORDERED: ONDANSETRON 4 MG/2 ML VIAL IVP PRN (16:31)
[2019-05-19] MEDS ORDERED: HYDROmorphone 1 MG/ML CARPUJECT IVP PRN (16:31)
[2019-05-19] MEDS ORDERED: ONDANSETRON ODT 4 MG TABLET TL PRN (16:31)
[2019-05-19 16:40] LABS: CLARITY,URINE CLOUDY (CLEAR)
[2019-05-19 16:41] LABS: BACTERIA,URINE Many /HPF (None Seen); RBC,URINE TNTC /HPF (0-5); SQUAMOUS EPITHELIAL CELL,UR NONE SEEN (<= Few); WBC CLUMPS,URINE PRESENT
[2019-05-19 17:10] LABS: ALBUMIN/GLOBULIN RATIO 1.1 (1.0-2.2); BILIRUBIN,TOTAL 0.8 mg/dL (0.2-1.0); CALCIUM 7.9 mg/dL (8.5-10.3); CREATININE 0.6 mg/dL (0.6-1.2); TOTAL PROTEIN 5.8 g/dL (6.7-8.2)
--- NOTE | 2019-05-19 17:21 | XRAY Report ---
Reason: fever, cough Procedure Date: 05/19/2019 Accession Number: [id number] / [id number] Procedure: XR - Chest 1 View X-Ray CPT Code: 78951 FULL RESULT: EXAM: CHEST RADIOGRAPHY EXAM DATE: 05/19/2019 04:56 PM. CLINICAL HISTORY: Cough and fever. COMPARISON: CHEST 1 VIEW 05/02/2019 6:55 PM. TECHNIQUE: 1 view. FINDINGS: Lungs/Pleura: Linear scarring at the lateral left base, otherwise no focal opacities evident. No pleural effusion. No pneumothorax. Mediastinum: Cardiomegaly. Calcified aortic arch. Other: Dextroscoliosis. Degenerative changes of the shoulders, left worse than right. IMPRESSION: 1. Linear scarring at the lateral left base, with no acute infiltrate identified. 2. Cardiomegaly without CHF. RADIA
--- NOTE | 2019-05-19 18:42 | ADVANCE CARE PLANNING NOTE ---
Advance Care Planning - Date/Time Date: 05/19/19 Time: 18:40 - Purpose of encounter Text: to establish treatment parameters set by and daughter (who is RN from ED) - Parties in attendance Parties in attendance: , daughter and hospitalist - Decisional capacity Decisional capacity of: patient is not able to participate. and daughter know his wishes - Subjective/Patient's story Subjective/Patient's story: he has had two leg fractures and pneumonias in the past as well as stroke. but he recovered enough to work out at gym, bicycle and be active. He has terrible right knee problems and he walked with a crooked gait for years. Then he injured his ankle and he was unable to work out a few months ago. Then he fell and frctured his pelvis 2 weeks ago and it's been downhill. he went home and was able to stand and weight bear. He was able to transfer and they felt that he was recovering again. Still need 2 careproviders during the day and his but he was gaining ground. Yesterday he fell asleep for his nap longer than usual. Slept for 3 hours but ate and did well. Today, around 2:30 pm, sudden confusion, disoriented, and weak. This afternoon had bloody urine. Brought to ER and has sepsis with UTI. - Objective/Medical story Objective/Medical Story: states blood in urine today and temp of 102 with chills and shaking. Patient lives at home with his . Was recently admitted for a pelvic fracture. Has home health care. Today he was shaking with chills in his chair. Temp was 102. Noted blood in the urine. Nothing makes it better or worse. Has had a mild cough as well. No vomiting. No diarrhea. Review of Systems Ten Systems: 10 systems reviewed and negative Constitutional: reports: Fever, Chills Nose: denies: Rhinorrhea / runny nose, Congestion Throat: denies: Sore throat Respiratory: reports: Cough GI: denies: Abdominal Pain, Nausea, Vomiting, Diarrhea : reports: Hematuria Skin: denies: Rash Musculoskeletal: denies: Neck pain, Back pain Neurologic: denies: Headache, Head injury, LOC PD PAST MEDICAL HISTORY - Past Medical History Cardiovascular: Hypertension, High cholesterol Respiratory: None Neuro: Dementia, CVA (stroke 2005) Endocrine/Autoimmune: None GI: None CLINIC DIRECTOR: None : Benign prostate hypertrophy, Nocturia, Frequency HEENT: Chronic vision loss, Glaucoma, Macular degeneration Psych: Other Musculoskeletal: Osteoarthritis, Osteoporosis, Other Derm: None - Past Surgical History Past Surgical History: Yes Ortho: Hip replacement - Goals of Care Goals of care determinations: 1. He would not like to be in a SNF but if his can't take care of him (he can't get out of bed at all), she would like him to receive temporary placment. 2. If it looks like a permanent situaiton, will go home with comfort measures. 3 . No pressors, no central lines. BiPAP is ok. - Plan Plan: ICU with IVF and abx. - Code Status Code Status: Do Not Attempt Resuscitation - Time Spent on Advance Care Planning Time spent on advance care plannin minutes.
[2019-05-19] MEDS: SODIUM CHLORIDE 0.9% 1,000 ML IV SCH (19:06)
[2019-05-19] MEDS: SODIUM CHLORIDE FLUSH 0.9% 10 ML SYRINGE IVP SCH (19:07)
[2019-05-19] MEDS ORDERED: CEFEPIME 2 GM in SODIUM CHLORIDE 0.9% MINIBAG 100 ML IV STA (19:20)
[2019-05-19] MEDS ORDERED: LACTATED RINGERS 1,000 ML IV ONE ×2 (19:22→21:52)
[2019-05-19] MEDS ORDERED: cefTRIAXone 1 GM in SODIUM CHLORIDE 0.9% MINIBAG 100 ML IV STA (19:32)
[2019-05-19] MEDS ORDERED: AMIODARONE 150 MG/100 ML 100 ML IV ONE ×2 (21:50→21:58)
[2019-05-19] MEDS ORDERED: POTASSIUM CHLOR 10 MEQ/100 ML 10 MEQ/100 ML BAG IV ONE (21:54)
[2019-05-19] MEDS ORDERED: AMIODARONE 360 MG/200 ML 200 ML IV ONE ×2 (21:57→21:59)
--- NOTE | 2019-05-19 23:28 | HISTORY & PHYSICAL EXAMINATION ---
DATE OF SERVICE: 05/19/2019 Physician: Crystal Petersen MD PRIMARY CARE PROVIDER: Braxton Magana MD ADMITTING PROVIDER: Crystal Petersen MD CHIEF COMPLAINT: Sudden confusion and bloody urine. HISTORY OF PRESENT ILLNESS: Patient is an 84-year-old man who moved to [facility] to be close to one of his daughters who moved here a few years ago. They liked to spend their [place] here and had a residence in [place]. Overall, they describe him as a very genial gentleman who always came back from the adversities his health status would give him. He has had broken legs with postoperative pneumonia, legal blindness, dementia, and frequent falls as a resultant of an old stroke. He would work out at the gym and get on a bicycle at least 3 times a week. A few months ago, he hurt his ankle, and they feel like there has been a subtle but steady deterioration since that time since he cannot go to the gym. On 04/29/2019 he fell, hurt his left hip, and he could not walk on it very well. His called her son-in-law to help get him off the floor. He managed to get up into the bathroom but has had severe left hip pain after that. This is a gentleman who already has a bad right knee and walks with a circumduction gait out of his right leg. He would stand and use his left leg as his main balance. With the fall on 04/29/2019 the one good leg was not working anymore. It got to the point where he could not get out of bed. He had been sent to the emergency room on the day of the fall, and imaging revealed no fracture. He did not tolerate medication very well and as such was not sent home on narcotics. Even with this current admission, the family is asking me to make sure he does not get anything sedative. No opiates at all because he is too loopy and too out of it with them. After being home, and he could not walk, they brought him back to the emergency room, and a new image on 05/02/2019 showed him to have a pubic ramus fracture in both the left inferior and superior that are acute and subacute. He was slightly dehydrated. He was brought in for hydration, pain management, and physical therapy evaluation. He was in the hospital from 05/02/2019 through 05/04/2019. He did have an in-and-out straight catheter done for urinalysis when he first came in, but he did not have a Kolb catheter during his stay. After he was brought back on his feet, pain was controlled, he was sent home. His needs a lot of help with him. She gets a care provider in the morning and a care provider in the late afternoon or early evening. She gets him from midday and at night. He has been making ground. He has been able to stand from a sitting position and was actually able to be upright for 5-6 minutes at a time. He was able to help her help him so that he could transfer to a chair, and he seemed to be recovering. Yesterday he slept for about 3 hours, which was unusual for him. He does have a usual midday nap, but yesterday it was 3 hours long. There was no fever, no chills, no dysuria, no urgency, no frequency. Appetite was stable. Today he had an abrupt change in his mental status. He was confused, disoriented starting around 2 in the afternoon. He got up to go to the bathroom and had bloody urine. He was brought into the hospital and he has met sepsis criteria where pulse was 133, blood pressure was 151/87 and now 97/56. His lactic acid is 2.9, and his white cell count has dropped to 3.1. Kidney function is maintained. He is felt to meet the criteria for sepsis, most likely from urinary tract infection. He has a large amount of occult blood, nitrites, leukocyte esterase, white cells and too numerous to count red cells in his urinalysis. No squamous epithelial cells were seen, but he has quite a bit of bacteria. PAST MEDICAL HISTORY 1. Hypertension. 2. Hyperlipidemia. 3. Stroke in 2004, with resultant residuals of cognitive deficits/dementia, gait ataxia. 4. 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 5. Essential tremor. 6. Proximal muscle weakness. 7. Benign prostatic hypertrophy with nocturia and frequency. 8. Osteoporosis. 9. Osteoarthritis with right-side hip replacement done in 1991 and 1994. 10. Inguinal hernia repair for inguinal hernia and hydrocele. 11. Osteoporosis with hip replacement in 2006 after a fall and periorthotic fracture on the right. ALLERGIES: NO KNOWN DRUG ALLERGIES. MEDICATIONS 1. Aggrenox 1 capsule daily. 2. Vitamin D 2000 units daily. 3. Latanoprost ophthalmic solution 1 drop left eye every evening. 4. Meloxicam 15 mg daily. 5. Namenda 10 mg b.i.d. 6. Silodosin 8 mg daily. 7. Timolol ophthalmic solution 1 drop left eye b.i.d. SOCIAL HISTORY: He lived at home with his independently until this last 2 weeks. They travel from [place] to [facility], and bought a vacation home here on the [place]. He uses a cane and a 4-wheel walker at home. He has never smoked. Occasionally drinks. No history of recreational substance abuse. FAMILY HISTORY: Father of complications of emphysema from World War I. Mom had diabetes before she . One brother had pancreatic cancer. One sister had diabetes and dementia. Children have been healthy. PREVIOUS LEVEL OF FUNCTION: He sleeps quite a bit. Naps every day. Sleeps throughout the night. Yesterday was the first time though he slept 3 hours in the middle of the day. Because of his previous fractures, arthritis, and surgeries, he had diminished ambulation where his right knee is out of whack and he uses a cane or walker at home. He is usually independent with his activities of daily living until this recent pelvic fracture. REVIEW OF SYSTEMS denies any recent change in appetite, fevers or sweats. He entire review of systems was obtained from and daughter since he is unable to speak. HEENT: Legally blind, wears glasses; he is also deaf. Denies any recent dysphagia, dysarthria. No facial asymmetry. CARDIOVASCULAR: He does have decreased exercise tolerance, occasional leg edema, right worse than left because of chronic changes from his previous fractures; but no chest pain, palpitations. RESPIRATORY: He has obstructive sleep apnea and always snores at night, but they deny any coughing, chest congestion, new respiratory complaints. GENITOURINARY: Urgency, frequency, dysuria from chronic UTIs has been his problem with prostatism. Positive today with the bloody urine. MUSCULOSKELETAL: Has chronic back pain, joint pain, joint stiffness. Right knee really bothers him and limits his range of motion. With his pelvic fracture, he now cannot use either side. Left ankle has been swollen since he injured it. SKIN: Chronic pressure ulcer. PSYCHIATRIC: Denies depression, suicidal ideation. ENDOCRINE: Denies polyuria, polyphagia, temperature intolerances. NEUROLOGIC: Cognitive deficits, generalized weakness. No history of seizures. PHYSICAL EXAMINATION This patient is seen in the ICU after writing orders and he was transferred from the ER. VITAL SIGNS: His blood pressure has dropped from the ER, where he was 151/87 to now 97/56. He has received 1 liter in the emergency room. He is tachycardic. He was in the 130s, now 116. He is breathing at 29 breaths a minute, where he was breathing at 34 in the ED. He is 93% saturated on 2 liters nasal cannula. GENERAL: On general physical examination, he arouses to my voice and his 's voice and my physical exam. He snores, snorts, awakens himself and goes "what." HEAD AND NECK: Exam shows him to be an open-mouth mouth breather with dry oral mucosa. Pupils are sluggish but reactive. Sclerae are nonicteric. Because of his open-mouth breathing, his oral mucosa is quite dry, but his tongue is pink. No facial asymmetry and a slack facies in a patient who is obtunded. Neck is supple. No JVD. No bruits. LUNGS: Coarse upper airway sounds from his breathing, but no crackles, rhonchi, or wheezing, and he is tachypneic but no use of accessory muscles. HEART: PMI is normally placed with a regular rate and rhythm, very tachycardic. ABDOMEN: Soft, hypoactive bowel sounds, nontender. No masses palpable. EXTREMITIES: Chronic hemosiderin deposits skin changes of both anterior shins. However, the right leg is much worse in the left leg. says those have been present for years, as a consequence of edema and healing from old leg fractures. He has a bruise in the back of his left calf that is new. No skin breakdown. He does appear to have a developing pressure on the coccyx. The right leg is more edematous with 1+ edema around the ankle, distal calf and crouch on the right leg, and almost none on the left leg. Severe onychomycosis, both feet. NEUROLOGIC: He is responding to voice, will answer yes/no, will move his limbs spontaneously and withdraw to pain. No focal deficits identified. LABORATORY/DATA Urinalysis, has been discussed above. White cell count is 3.1, hemoglobin 15, hematocrit 42. Platelets 164. BUN is 27, creatinine 0.6. Random glucose 100. Lactic acid 2.9. Alkaline phosphatase 264. Liver enzymes normal. Chest x-ray has linear scarring of the left lateral base. No acute infiltrate. Cardiomegaly without CHF. ASSESSMENT PLAN 1. Sepsis. At this time, I suspect urinary tract infection as a cause of his sepsis. This is a gentleman who had BPH. He had an in-and-out catheter 2 weeks ago. PLAN a. An inpatient admission to ICU. b. ATTESTATION: The patient will be evaluated for discharge within 96 hours. c. Sepsis protocol for pathogen. d. Adjust antibiotics on the basis of cultures. e. Trend troponins, as well as lactic acid. 2. Benign prostatic hypertrophy with lower urinary tract symptoms of obstruction. PLAN: Flomax and Proscar when able to take p.o. Avoid Kolb at this time. 3. Dementia, most likely as a result of old strokes. No behavioral disturbances per his history. On Namenda. We will resume that when able to take p.o. 4. Recent pelvic fracture in a male who has osteoporosis. PLAN: Once more awake, less obtunded, and he recovers from the sepsis, we will start physical therapy again. 5. Deep venous thrombosis prophylaxis. We will continue with Lovenox. 6. DO NOT RESUSCITATE status. Advance care planning conversation held under separate note per and daughter's request. TD: 05/19/2019 19:15 TYLER
[2019-05-20] MEDS: POTASSIUM CHLOR 10 MEQ/100 ML 10 MEQ/100 ML BAG IV SCH ×3 (00:26→02:34)
[2019-05-20] MEDS ORDERED: SODIUM CHLORIDE 0.9% 500 ML IV PRN (00:33)
[2019-05-20] MEDS: SODIUM CHLORIDE FLUSH 0.9% 10 ML SYRINGE IVP SCH ×3 (02:36→19:31)
[2019-05-20] MEDS: AMIODARONE 360 MG/200 ML 200 ML IV SCH ×2 (04:09→19:30)
[2019-05-20] MEDS: SODIUM CHLORIDE 0.9% 1,000 ML IV SCH ×2 (05:11→19:30)
[2019-05-20 05:14] LABS: BASOPHILS % (AUTO) 0.3 %; EOSINOPHILS % (AUTO) 0.1 %; HGB - HEMOGLOBIN 13.1 g/dL (14.0-18.0); LYMPHOCYTES % (AUTO) 1.9 %; MEAN CORPUSCULAR HEMOGLOBIN 33.3 pg (27.0-31.0); MEAN CORPUSCULAR HGB CONC 33.9 g/dL (32.0-36.0); MEAN CORPUSCULAR VOLUME 98.2 fL (80.0-94.0); MEAN PLATELET VOLUME 10.7 fL (7.4-11.4); MONOCYTES % (AUTO) 6.2 %; NEUTROPHILS % (AUTO) 89.7 %; PLT - PLATELET COUNT 135 10^3/uL (130-450); RED BLOOD COUNT 3.93 10^6/uL (4.70-6.10); RED CELL DISTRIBUTION WIDTH 13.4 % (12.0-15.0); VBG BASE EXCESS -3.1 mmol/L (-2 - +2); VBG PCO2 31.8 mmHg (41-51); VBG PH 7.422 (7.31-7.41); VBG PO2 75.3 mmHg (25-47); VBG TOTAL CO2 21.2 mmol/L (24-29); WHITE BLOOD COUNT 18.5 x10^3/uL (4.8-10.8)
[2019-05-20 05:15] LABS: ABNORMAL LYMPHS % (MANUAL) 0 %; BAND NEUTROPHILS % (MANUAL) 0 %
[2019-05-20 05:28] LABS: CALCIUM 8.1 mg/dL (8.5-10.3); CREATININE 0.7 mg/dL (0.6-1.2); MAGNESIUM 1.8 mg/dL (1.7-2.8); PHOSPHORUS 3.5 mg/dL (2.5-4.6)
[2019-05-20 05:56] LABS: LYMPHOCYTES # (MANUAL) 0.4 10^3/uL (1.5-3.5); LYMPHOCYTES % (MANUAL) 2 %; MONOCYTES # (MANUAL) 1.3 10^3/uL (0.0-1.0); NEUTROPHILS # (MANUAL) 16.8 10^3/uL (1.5-6.6); NEUTROPHILS % (MANUAL) 91 %
[2019-05-20 05:57] LABS: PLATELET ESTIMATE, MANUAL NORMAL (130-450,000) (NORMAL); PLATELET MORPHOLOGY NORMAL APPEARANCE (NORMAL); RBC MORPHOLOGY (MULTIPLE) NORMAL APPEARANCE (NORMAL)
[2019-05-20] MEDS ORDERED: LACTATED RINGERS 500 ML IV ONE ×2 (09:15→10:30)
--- NOTE | 2019-05-20 09:27 | PROVIDER PROGRESS NOTE ---
Subjective - Prog Note Date Prog Note Date: 05/20/19 Prog Note Time: 09:24 - Subjective Subjective: His awake, responsive to my questions. Knows he is in the hospital. Tells me that "I just do not feel good, I hurt all over". But he denies any chest pain, shortness of breath, or abdominal pain. Very weak, fatigued. Voice is slow, low and worse Current Medications - Current Medications Current Medications: Active Medications Amiodarone HCl (Pacerone) 200 mg PO DAILY JAROCHO Hydromorphone HCl (Dilaudid Inj Carp) 1 mg IVP Q2HR PRN PRN Reason: Pain 8 to 10 Sodium Chloride (Normal Saline 0.9%) 1,000 mls @ 100 mls/hr IV .Q10H [facility] Last Admin: 05/20/19 05:11 Dose: 100 mls/hr Ceftriaxone Sodium 1 gm/ (Sodium Chloride) 100 mls @ 200 mls/hr IV DAILY [facility] Last Infusion: 05/20/19 10:15 Dose: Infused Amiodarone HCl/Dextrose (Nexterone 360 Mg/200 Ml) 200 mls @ 16.667 mls/hr IV .Q12H [facility] Last Admin: 05/20/19 04:09 Dose: 0.5 mg/min, 16.667 mls/hr Sodium Chloride (Normal Saline 0.9%) 500 mls @ 0 mls/hr IV Q24H PRN PRN Reason: TKO RATE Last Admin: 05/20/19 03:19 Dose: 20 mls/hr Latanoprost (Xalatan Ophth Drops) 1 drops [facility] QPM [facility] Ondansetron HCl (Zofran Inj) 4 mg IVP Q6HR PRN PRN Reason: Nausea / Vomiting Ondansetron HCl (Zofran Odt) 4 mg TL Q6HR PRN PRN Reason: Nausea / Vomiting Sodium Chloride (Normal Saline Flush 0.9%) 10 ml IVP 0100,0900,1700 [facility] Last Admin: 05/20/19 09:42 Dose: 10 ml Sodium Chloride (Normal Saline Flush 0.9%) 10 ml IVP PRN PRN PRN Reason: NEEDED PER PROVIDER ORDERS Timolol Maleate (Timoptic 0.5% Ophth Drops) 1 drops [facility] BID [facility] Aspirin/Dipyridamole [Aggrenox] 1 cap PO DAILY 05/14/16 Latanoprost 0.005% Ophth Drops [Xalatan Ophth Drops] 1 drops [facility] QPM 05/02/19 Silodosin 8 mg PO DAILY 05/02/19 Timolol 0.5% Ophth Drops [Timoptic 0.5% Ophth Drops] 1 drops [facility] BID 05/02/19 Cholecalciferol (Vitamin D3) [Vitamin D] 2,000 unit PO DAILY 05/19/19 Meloxicam 15 mg PO DAILY PRN 05/19/19 Memantine HCl [Namenda] 10 mg PO BID 05/19/19 Objective - Vital Signs/Intake & Output Reviewed Vital Signs: Yes Vital Signs: Vital Signs Temp Pulse Resp BP Pulse Ox 05/20/19 09:00 69 27 H 90/57 L 96 05/20/19 08:00 37.1 C 70 33 H 90/64 97 05/20/19 06:00 121 H 27 H 86/54 L 96 Intake & Output: Intake & Output 05/17/19 05/18/19 05/19/19 05/20/19 23:59 23:59 23:59 23:59 Intake Total 3300 1800 Output Total 201 Balance 3099 1800 - Objective General Appearance: positive: No acute distress, Other (Eyes are closed, but he opens them to my voice, and answers my questions slowly) Eyes Bilateral: positive: PERRL ENT: positive: Dry mucous membranes Neck: positive: No JVD. negative: Stiff neck, Carotid bruit Respiratory: positive: Chest non-tender. negative: Wheezes, Rales, Rhonchi Cardiovascular: positive: Regular rate & rhythm (was afib and converted to sinus around 7 am, after amiodarone), Systolic murmur. negative: Gallop/S4, Friction rub Abdomen: positive: Non-tender, No organomegaly, Nml bowel sounds, No distention Skin: positive: Warm, Dry Neurologic/Psychiatric: positive: CN's nml (2-12) (deaf), Disoriented to time, Other (low, hoarse voice). negative: Motor nml (tremor with exertion. Getting drink cup to mouth to then use a straw hard for him) - Lab Results Fish Bones: 05/20/19 04:20 05/20/19 04:20 Other Labs: Lab Results x24hrs 05/20/19 05/20/19 05/20/19 Range/Units 04:20 04:20 04:20 WBC (4.8-10.8) x10^3/uL RBC (4.70-6.10) 10^6/uL Hgb (14.0-18.0) g/dL Hct (42.0-52.0) % MCV (80.0-94.0) fL MCH (27.0-31.0) pg MCHC (32.0-36.0) g/dL RDW (12.0-15.0) % Plt Count (130-450) 10^3/uL MPV (7.4-11.4) fL Neut # (Auto) (1.5-6.6) 10^3/uL Lymph # (Auto) (1.5-3.5) 10^3/uL Reynolds # (Auto) (0.0-1.0) 10^3/uL Eos # (Auto) (0.0-0.7) 10^3/uL Baso # (Auto) (0.0-0.1) 10^3/uL Absolute Nucleated RBC x10^3/uL Total Counted Band Neuts % (Manual) (0 - 10) % Abnorm Lymph % (Manual) % Nucleated RBC % /100WBC Neutrophils # (Manual) (1.5-6.6) 10^3/uL Lymphocytes # (Manual) (1.5-3.5) 10^3/uL Monocytes # (Manual) (0.0-1.0) 10^3/uL Eosinophils # (Manual) (0-0.7) 10^3/uL Basophils # (Manual) (0-0.1) 10^3/uL Platelet Estimate (NORMAL) Platelet Morphology (NORMAL) RBC Morph Micro Appear (NORMAL) VBG pH 7.422 H (7.31-7.41) VBG pCO2 31.8 L (41-51) mmHg VBG pO2 75.3 H (25-47) mmHg VBG HCO3 20.3 L (23-28) mmol/L VBG Total CO2 21.2 L (24-29) mmol/L VBG O2 Saturation 95.7 H (60-80) % VBG Base Excess -3.1 L (-2 - +2) mmol/L Sodium 137 (135-145) mmol/L Potassium 4.1 (3.5-5.0) mmol/L Chloride 105 (101-111) mmol/L Carbon Dioxide 20 L (21-32) mmol/L Anion Gap 12.0 (6-13) BUN 23 H (6-20) mg/dL Creatinine 0.7 (0.6-1.2) mg/dL Estimated GFR (MDRD) 107 (>89) Glucose 112 H (70-100) mg/dL Lactic Acid (0.5-2.2) mmol/L Calcium 8.1 L (8.5-10.3) mg/dL Phosphorus 3.5 (2.5-4.6) mg/dL Magnesium 1.8 (1.7-2.8) mg/dL Total Bilirubin (0.2-1.0) mg/dL AST (10-42) IU/L ALT (10-60) IU/L Alkaline Phosphatase (42-121) IU/L Total Protein (6.7-8.2) g/dL Albumin 2.8 L (3.2-5.5) g/dL Globulin (2.1-4.2) g/dL Albumin/Globulin Ratio (1.0-2.2) Lipase (22-51) U/L Urine Color Urine Clarity (CLEAR) Urine pH (5.0-7.5) PH Ur Specific [place] (1.002-1.030) Urine Protein (NEGATIVE) mg/dL Urine Glucose (UA) (NEGATIVE) mg/dL Urine Ketones (NEGATIVE) mg/dL Urine Occult Blood (NEGATIVE) Urine Nitrite (NEGATIVE) Urine Bilirubin (NEGATIVE) Urine Urobilinogen (NORMAL) E.U./dL Ur Leukocyte Esterase (NEGATIVE) Urine RBC (0-5) /HPF Urine WBC (0-3) /HPF Urine WBC Clumps Ur Squamous Epith Cells (<= Few) Urine Bacteria (None Seen) /HPF Ur Microscopic Review Urine Culture Comments Nasal Screen MRSA (PCR) (NEGATIVE) 05/20/19 05/19/19 05/19/19 Range/Units 04:20 19:07 17:30 WBC 18.5 H (4.8-10.8) x10^3/uL RBC 3.93 L (4.70-6.10) 10^6/uL Hgb 13.1 L (14.0-18.0) g/dL Hct 38.6 L (42.0-52.0) % MCV 98.2 H (80.0-94.0) fL MCH 33.3 H (27.0-31.0) pg MCHC 33.9 (32.0-36.0) g/dL RDW 13.4 (12.0-15.0) % Plt Count 135 (130-450) 10^3/uL MPV 10.7 (7.4-11.4) fL Neut # (Auto) [employer]AKING FINISHER (1.5-6.6) 10^3/uL Lymph # (Auto) [employer]AKING FINISHER (1.5-3.5) 10^3/uL Reynolds # (Auto) [employer]OEMAKING FINISHER (0.0-1.0) 10^3/uL Eos # (Auto) [employer]OEMAKING FINISHER (0.0-0.7) 10^3/uL Baso # (Auto) [employer]OEMAKING FINISHER (0.0-0.1) 10^3/uL Absolute Nucleated RBC [employer]OEMAKING FINISHER x10^3/uL Total Counted 100 Band Neuts % (Manual) 0 (0 - 10) % Abnorm Lymph % (Manual) 0 % Nucleated RBC % [employer]OEMAKING FINISHER /100WBC Neutrophils # (Manual) 16.8 H (1.5-6.6) 10^3/uL Lymphocytes # (Manual) 0.4 L (1.5-3.5) 10^3/uL Monocytes # (Manual) 1.3 H (0.0-1.0) 10^3/uL Eosinophils # (Manual) 0.0 (0-0.7) 10^3/uL Basophils # (Manual) 0.0 (0-0.1) 10^3/uL Platelet Estimate NORMAL (130-450,000) (NORMAL) Platelet Morphology NORMAL APPEARANCE (NORMAL) RBC Morph Micro Appear NORMAL APPEARANCE (NORMAL) VBG pH (7.31-7.41) VBG pCO2 (41-51) mmHg VBG pO2 (25-47) mmHg VBG HCO3 (23-28) mmol/L VBG Total CO2 (24-29) mmol/L VBG O2 Saturation (60-80) % VBG Base Excess (-2 - +2) mmol/L Sodium (135-145) mmol/L Potassium (3.5-5.0) mmol/L Chloride (101-111) mmol/L Carbon Dioxide (21-32) mmol/L Anion Gap (6-13) BUN (6-20) mg/dL Creatinine (0.6-1.2) mg/dL Estimated GFR (MDRD) (>89) Glucose (70-100) mg/dL Lactic Acid 1.7 (0.5-2.2) mmol/L Calcium (8.5-10.3) mg/dL Phosphorus (2.5-4.6) mg/dL Magnesium (1.7-2.8) mg/dL Total Bilirubin (0.2-1.0) mg/dL AST (10-42) IU/L ALT (10-60) IU/L Alkaline Phosphatase (42-121) IU/L Total Protein (6.7-8.2) g/dL Albumin (3.2-5.5) g/dL Globulin (2.1-4.2) g/dL Albumin/Globulin Ratio (1.0-2.2) Lipase (22-51) U/L Urine Color Urine Clarity (CLEAR) Urine pH (5.0-7.5) PH Ur Specific [place] (1.002-1.030) Urine Protein (NEGATIVE) mg/dL Urine Glucose (UA) (NEGATIVE) mg/dL Urine Ketones (NEGATIVE) mg/dL Urine Occult Blood (NEGATIVE) Urine Nitrite (NEGATIVE) Urine Bilirubin (NEGATIVE) Urine Urobilinogen (NORMAL) E.U./dL Ur Leukocyte Esterase (NEGATIVE) Urine RBC (0-5) /HPF Urine WBC (0-3) /HPF Urine WBC Clumps Ur Squamous Epith Cells (<= Few) Urine Bacteria (None Seen) /HPF Ur Microscopic Review Urine Culture Comments Nasal Screen MRSA (PCR) NEGATIVE (NEGATIVE) 05/19/19 05/19/19 05/19/19 Range/Units 16:54 16:54 15:56 WBC (4.8-10.8) x10^3/uL RBC (4.70-6.10) 10^6/uL Hgb (14.0-18.0) g/dL Hct (42.0-52.0) % MCV (80.0-94.0) fL MCH (27.0-31.0) pg MCHC (32.0-36.0) g/dL RDW (12.0-15.0) % Plt Count (130-450) 10^3/uL MPV (7.4-11.4) fL Neut # (Auto) (1.5-6.6) 10^3/uL Lymph # (Auto) (1.5-3.5) 10^3/uL Reynolds # (Auto) (0.0-1.0) 10^3/uL Eos # (Auto) (0.0-0.7) 10^3/uL Baso # (Auto) (0.0-0.1) 10^3/uL Absolute Nucleated RBC x10^3/uL Total Counted Band Neuts % (Manual) (0 - 10) % Abnorm Lymph % (Manual) % Nucleated RBC % /100WBC Neutrophils # (Manual) (1.5-6.6) 10^3/uL Lymphocytes # (Manual) (1.5-3.5) 10^3/uL Monocytes # (Manual) (0.0-1.0) 10^3/uL Eosinophils # (Manual) (0-0.7) 10^3/uL Basophils # (Manual) (0-0.1) 10^3/uL Platelet Estimate (NORMAL) Platelet Morphology (NORMAL) RBC Morph Micro Appear (NORMAL) VBG pH (7.31-7.41) VBG pCO2 (41-51) mmHg VBG pO2 (25-47) mmHg VBG HCO3 (23-28) mmol/L VBG Total CO2 (24-29) mmol/L VBG O2 Saturation (60-80) % VBG Base Excess (-2 - +2) mmol/L Sodium 136 (135-145) mmol/L Potassium 3.5 (3.5-5.0) mmol/L Chloride 102 (101-111) mmol/L Carbon Dioxide 22 (21-32) mmol/L Anion Gap 12.0 (6-13) BUN 27 H (6-20) mg/dL Creatinine 0.6 (0.6-1.2) mg/dL Estimated GFR (MDRD) 128 (>89) Glucose 100 (70-100) mg/dL Lactic Acid 2.9 H (0.5-2.2) mmol/L Calcium 7.9 L (8.5-10.3) mg/dL Phosphorus (2.5-4.6) mg/dL Magnesium 1.9 (1.7-2.8) mg/dL Total Bilirubin 0.8 (0.2-1.0) mg/dL AST 20 (10-42) IU/L ALT 11 (10-60) IU/L Alkaline Phosphatase 264 H (42-121) IU/L Total Protein 5.8 L (6.7-8.2) g/dL Albumin 3.0 L (3.2-5.5) g/dL Globulin 2.8 (2.1-4.2) g/dL Albumin/Globulin Ratio 1.1 (1.0-2.2) Lipase 32 (22-51) U/L Urine Color Urine Clarity (CLEAR) Urine pH (5.0-7.5) PH Ur Specific [place] (1.002-1.030) Urine Protein (NEGATIVE) mg/dL Urine Glucose (UA) (NEGATIVE) mg/dL Urine Ketones (NEGATIVE) mg/dL Urine Occult Blood (NEGATIVE) Urine Nitrite (NEGATIVE) Urine Bilirubin (NEGATIVE) Urine Urobilinogen (NORMAL) E.U./dL Ur Leukocyte Esterase (NEGATIVE) Urine RBC (0-5) /HPF Urine WBC (0-3) /HPF Urine WBC Clumps Ur Squamous Epith Cells (<= Few) Urine Bacteria (None Seen) /HPF Ur Microscopic Review Urine Culture Comments Nasal Screen MRSA (PCR) (NEGATIVE) 05/19/19 05/19/19 Range/Units 15:56 15:50 WBC 3.1 L (4.8-10.8) x10^3/uL RBC 4.44 L (4.70-6.10) 10^6/uL Hgb 15.0 (14.0-18.0) g/dL Hct 42.8 (42.0-52.0) % MCV 96.4 H (80.0-94.0) fL MCH 33.8 H (27.0-31.0) pg MCHC 35.0 (32.0-36.0) g/dL RDW 13.3 (12.0-15.0) % Plt Count 164 (130-450) 10^3/uL MPV 10.0 (7.4-11.4) fL Neut # (Auto) 2.9 (1.5-6.6) 10^3/uL Lymph # (Auto) 0.1 L (1.5-3.5) 10^3/uL Reynolds # (Auto) 0.0 (0.0-1.0) 10^3/uL Eos # (Auto) 0.0 (0.0-0.7) 10^3/uL Baso # (Auto) 0.0 (0.0-0.1) 10^3/uL Absolute Nucleated RBC 0.00 x10^3/uL Total Counted Band Neuts % (Manual) (0 - 10) % Abnorm Lymph % (Manual) % Nucleated RBC % 0.0 /100WBC Neutrophils # (Manual) (1.5-6.6) 10^3/uL Lymphocytes # (Manual) (1.5-3.5) 10^3/uL Monocytes # (Manual) (0.0-1.0) 10^3/uL Eosinophils # (Manual) (0-0.7) 10^3/uL Basophils # (Manual) (0-0.1) 10^3/uL Platelet Estimate (NORMAL) Platelet Morphology (NORMAL) RBC Morph Micro Appear (NORMAL) VBG pH (7.31-7.41) VBG pCO2 (41-51) mmHg VBG pO2 (25-47) mmHg VBG HCO3 (23-28) mmol/L VBG Total CO2 (24-29) mmol/L VBG O2 Saturation (60-80) % VBG Base Excess (-2 - +2) mmol/L Sodium (135-145) mmol/L Potassium (3.5-5.0) mmol/L Chloride (101-111) mmol/L Carbon Dioxide (21-32) mmol/L Anion Gap (6-13) BUN (6-20) mg/dL Creatinine (0.6-1.2) mg/dL Estimated GFR (MDRD) (>89) Glucose (70-100) mg/dL Lactic Acid (0.5-2.2) mmol/L Calcium (8.5-10.3) mg/dL Phosphorus (2.5-4.6) mg/dL Magnesium (1.7-2.8) mg/dL Total Bilirubin (0.2-1.0) mg/dL AST (10-42) IU/L ALT (10-60) IU/L Alkaline Phosphatase (42-121) IU/L Total Protein (6.7-8.2) g/dL Albumin (3.2-5.5) g/dL Globulin (2.1-4.2) g/dL Albumin/Globulin Ratio (1.0-2.2) Lipase (22-51) U/L Urine Color YELLOW Urine Clarity CLOUDY (CLEAR) Urine pH 6.0 (5.0-7.5) PH Ur Specific [place] 1.015 (1.002-1.030) Urine Protein TRACE (NEGATIVE) mg/dL Urine Glucose (UA) NEGATIVE (NEGATIVE) mg/dL Urine Ketones NEGATIVE (NEGATIVE) mg/dL Urine Occult Blood LARGE H (NEGATIVE) Urine Nitrite POSITIVE H (NEGATIVE) Urine Bilirubin NEGATIVE (NEGATIVE) Urine Urobilinogen 0.2 (NORMAL) (NORMAL) E.U./dL Ur Leukocyte Esterase SMALL H (NEGATIVE) Urine RBC TNTC H (0-5) /HPF Urine WBC >25 H (0-3) /HPF Urine WBC Clumps PRESENT Ur Squamous Epith Cells NONE SEEN (<= Few) Urine Bacteria Many H (None Seen) /HPF Ur Microscopic Review INDICATED Urine Culture Comments INDICATED Nasal Screen MRSA (PCR) (NEGATIVE) Sepsis Event Note (H) - Evaluation Current Stage of Sepsis: Sepsis Possible source of Sepsis: positive: Genitourinary - Sepsis Criteria Sepsis Criteria: Recorded Temperature greater than 38.3C or Less than 36C, Recorded Heart Rate greater than 90 bpm, Recorded Respiratory Rate greater than 20, MAP less than 65 mmHg, Metabolic: lactate > 2 mmol/L Assessment/Plan - Problem List (1) Sepsis Impression: he presented as sudden change in mental status with bloody urine in a patient who had an in and out cath 2 weeks ago, and has chronic BPH w LUTS. In ER he was normotensive but tachy, febrile, and signs of severe bacteremia re flected in low WBC, and source was urine. He was placed in ICU with DNR status.Dropped his pressure. Has received a couple of fluid boluses. Also went into A. fib with RVR. That responded with amiodarone drip and is now sinus rhythm. lactic acid has improved to normal. WBC has rebounded to a normal high response as expected Blood culture Growing gram-positive cocci, urine culture is contaminated Patient is still very weak Day #2 Rocephin, day #2 cefepime Plan: Continue antibiotics until bacteria identified Continue as needed fluid boluses to maintain blood pressure Qualifiers: Sepsis type: sepsis due to unspecified organism Qualified Code(s): A41.9 - Sepsis, unspecified organism (2) BPH (benign prostatic hyperplasia) Impression: Bed smells of urine, so does the patient because of his incontinence. I am hoping to avoid a Kolb catheter at this time. So far nursing is not reporting urinary return that is of concern. Plan: Flomax p.o. Proscar p.o. Check PSA Qualifiers: Lower urinary tract symptom presence: symptoms present Lower urinary tract symptom detail: urinary frequency Qualified Code(s): N40.1 - Benign prostatic hyperplasia with lower urinary tract symptoms; R35.0 - Frequency of micturition (3) Residual cognitive deficit as late effect of cerebrovascular accident Impression: Family describes memory loss. This morning he is remarkably stable. He is able to tell me where he is, why is here, who he is. There are no behavioral problems at this time. (4) Pelvic fracture Impression: This happened approximately April 26. I will have physical therapy see him starting tomorrow. He is already getting physical therapy through [facility]. The question will be whether he can go home to continue that, or will he need to go to [facility] for [facility]. is identified for [facility] is a facility she would want if he needs to do that. Qualifiers: Encounter type: subsequent encounter Pelvic bone location: pubis Manzano blocation of pubis: superior rim Laterality: left Fracture healing: with routine healing (5) New onset atrial fibrillation Impression: present for short duration last night. Resolved after amiodarone drip. EKG done to confirm return to NSR. Will check troponin and TSH (6) Glaucoma Impression: was giving him his drops this morning. I have gone ahead and reconcile the list so we can take those from home.
[2019-05-20] MEDS: cefTRIAXone 1 GM in SODIUM CHLORIDE 0.9% MINIBAG 100 ML IV SCH (09:42)
[2019-05-20] MEDS ORDERED: FINASTERIDE 5 MG TABLET PO SCH (13:30)
[2019-05-20] MEDS: FINASTERIDE 5 MG TABLET PO SCH (13:50)
[2019-05-20] MEDS: TAMSULOSIN 0.4 MG CAPSULE PO SCH (16:09)
[2019-05-20] MEDS ORDERED: FUROSEMIDE 20 MG/2 ML VIAL IVP STA (18:06)
[2019-05-20] MEDS: AMIODARONE 200 MG TABLET PO SCH (18:34)
--- NOTE | 2019-05-20 19:03 | XRAY Report ---
Reason: Cough, sob, hypoxia Procedure Date: 05/20/2019 Accession Number: [id number] / [id number] Procedure: XR - Chest 1 View X-Ray CPT Code: 57169 FULL RESULT: EXAM: CHEST RADIOGRAPHY EXAM DATE: 05/20/2019 06:45 PM. CLINICAL HISTORY: Cough, sob, hypoxia. COMPARISON: CHEST 1 VIEW 05/19/2019 4:35 PM. TECHNIQUE: 1 view. FINDINGS: Lungs/Pleura: There is reticular opacity within the lungs. The opacity is not significantly changed as compared to the previous examination. Costophrenic sulcus blunting likely represents pleural effusion. There is no evidence of pneumothorax. Mediastinum: There is cardiomegaly. There is thoracic aortic calcification. Other: None. IMPRESSION: 1. Lung volumes and heart size are stable. There is cardiomegaly. 2. There is patchy and reticular opacity within the lungs. Perhaps slight interval increase within the lung bases. Within the mid and upper lungs, the opacities are stable. 3. Bilateral effusions are present. 4. There is no pneumothorax. RADIA
[2019-05-20] MEDS: TIMOLOL 0.5% OPHTH DROPS LEFTEYE SCH (21:26)
[2019-05-20] MEDS: LATANOPROST 0.005% OPHTH DROPS LEFTEYE SCH (21:26)
[2019-05-21] MEDS ORDERED: MIN OIL/DIMETHICON/COCONUT OIL 92 GM TUBE TOP PRN (03:21)
[2019-05-21 04:58] LABS: VBG PH 7.431 (7.31-7.41); VBG PO2 148.4 mmHg (25-47); VBG TOTAL CO2 23.8 mmol/L (24-29)
[2019-05-21 05:03] LABS: BASOPHILS # (AUTO) 0.1 10^3/uL (0.0-0.1); BASOPHILS % (AUTO) 0.4 %; EOSINOPHILS # (AUTO) 0.2 10^3/uL (0.0-0.7); EOSINOPHILS % (AUTO) 1.3 %; HGB - HEMOGLOBIN 12.3 g/dL (14.0-18.0); LYMPHOCYTES # (AUTO) 0.4 10^3/uL (1.5-3.5); LYMPHOCYTES % (AUTO) 2.9 %; MEAN CORPUSCULAR HEMOGLOBIN 33.6 pg (27.0-31.0); MEAN CORPUSCULAR HGB CONC 34.1 g/dL (32.0-36.0); MEAN CORPUSCULAR VOLUME 98.6 fL (80.0-94.0); MEAN PLATELET VOLUME 10.9 fL (7.4-11.4); MONOCYTES # (AUTO) 0.7 10^3/uL (0.0-1.0); MONOCYTES % (AUTO) 5.4 %; NEUTROPHILS # (AUTO) 10.5 10^3/uL (1.5-6.6); NEUTROPHILS % (AUTO) 88.4 %; PLT - PLATELET COUNT 113 10^3/uL (130-450); RED BLOOD COUNT 3.66 10^6/uL (4.70-6.10); RED CELL DISTRIBUTION WIDTH 13.4 % (12.0-15.0); WHITE BLOOD COUNT 11.9 x10^3/uL (4.8-10.8)
[2019-05-21 05:10] LABS: CALCIUM 8.2 mg/dL (8.5-10.3); CREATININE 0.6 mg/dL (0.6-1.2); MAGNESIUM 1.9 mg/dL (1.7-2.8); PHOSPHORUS 2.6 mg/dL (2.5-4.6)
[2019-05-21] MEDS: BENZONATATE 100 MG CAPSULE PO PRN ×2 (05:10→20:09)
[2019-05-21] MEDS: AMIODARONE 360 MG/200 ML 200 ML IV SCH ×2 (05:10→11:30)
[2019-05-21] MEDS: SODIUM CHLORIDE FLUSH 0.9% 10 ML SYRINGE IVP SCH ×4 (05:11→20:09)
[2019-05-21] MEDS: SODIUM CHLORIDE 0.9% 1,000 ML IV SCH ×2 (05:12→09:20)
[2019-05-21] MEDS: AMIODARONE 200 MG TABLET PO SCH (08:34)
[2019-05-21] MEDS: TAMSULOSIN 0.4 MG CAPSULE PO SCH (08:34)
[2019-05-21] MEDS: FINASTERIDE 5 MG TABLET PO SCH (08:34)
[2019-05-21] MEDS: TIMOLOL 0.5% OPHTH DROPS LEFTEYE SCH ×2 (08:40→20:09)
[2019-05-21] MEDS: cefTRIAXone 1 GM in SODIUM CHLORIDE 0.9% MINIBAG 100 ML IV SCH (08:50)
[2019-05-21 09:50] LABS: PSA FREE 0.067 ng/mL (0.16-2.81)
[2019-05-21 09:51] LABS: PSA TOTAL 0.375 ng/mL (0.000-2.000)
--- NOTE | 2019-05-21 18:20 | PROVIDER PROGRESS NOTE ---
Subjective - Prog Note Date Prog Note Date: 05/21/19 Prog Note Time: 18:22 - Subjective Subjective: He is so tired. Said he has been up since 3 this morning and could not get back to sleep. He is cranky. Keeps on throwing a side of her room. Including his . He just wants to get to sleep. Does not want to work with physical therapy. Denies chest pain, palpitations, shortness of breath. Just claims that he is exhausted and fatigued. Has a lot of urinary frequency and urgency but no dysuria. No blood in his urine. Current Medications - Current Medications Current Medications: Active Medications Amiodarone HCl (Pacerone) 200 mg PO DAILY [facility] Last Admin: 05/21/19 08:34 Dose: 200 mg Benzonatate (Tessalon) 100 mg PO TID PRN PRN Reason: Cough Last Admin: 05/21/19 05:10 Dose: 100 mg Finasteride (Proscar) 5 mg PO DAILY [facility] Last Admin: 05/21/19 08:34 Dose: 5 mg Hydromorphone HCl (Dilaudid Inj Carp) 1 mg IVP Q2HR PRN PRN Reason: Pain 8 to 10 Ceftriaxone Sodium 1 gm/ (Sodium Chloride) 100 mls @ 200 mls/hr IV DAILY [facility] Last Infusion: 05/21/19 09:20 Dose: Infused Sodium Chloride (Normal Saline 0.9%) 500 mls @ 0 mls/hr IV Q24H PRN PRN Reason: TKO RATE Last Infusion: 05/21/19 06:58 Dose: Infused Mineral Oil (Cavilon) 1 applic TOP PRN PRN PRN Reason: Skin Care Ondansetron HCl (Zofran Inj) 4 mg IVP Q6HR PRN PRN Reason: Nausea / Vomiting Ondansetron HCl (Zofran Odt) 4 mg TL Q6HR PRN PRN Reason: Nausea / Vomiting Latanoprost 0.005% (Ophth Drops) 1 each LEFTEYE QPM [facility] Last Admin: 05/20/19 21:26 Dose: 1 each Timolol 0.5% Ophth (Drops) 1 each LEFTEYE BID [facility] Last Admin: 05/21/19 08:40 Dose: 1 each Sodium Chloride (Normal Saline Flush 0.9%) 10 ml IVP 0100,0900,1700 [facility] Last Admin: 05/21/19 16:36 Dose: 10 ml Sodium Chloride (Normal Saline Flush 0.9%) 10 ml IVP PRN PRN PRN Reason: NEEDED PER PROVIDER ORDERS Tamsulosin HCl (Flomax) 0.4 mg PO DAILY [facility] Last Admin: 05/21/19 08:34 Dose: 0.4 mg Aspirin/Dipyridamole [Aggrenox] 1 cap PO DAILY 05/14/16 Latanoprost 0.005% Ophth Drops [Xalatan Ophth Drops] 1 drops LEFTEYE QPM 05/02/19 Silodosin 8 mg PO DAILY 05/02/19 Timolol 0.5% Ophth Drops [Timoptic 0.5% Ophth Drops] 1 drops LEFTEYE BID 05/02/19 Cholecalciferol (Vitamin D3) [Vitamin D] 2,000 unit PO DAILY 05/19/19 Meloxicam 15 mg PO DAILY PRN 05/19/19 Memantine HCl [Namenda] 10 mg PO BID 05/19/19 Objective - Vital Signs/Intake & Output Reviewed Vital Signs: Yes Vital Signs: Vital Signs Temp Pulse Pulse Resp BP BP Pulse Ox 05/21/19 16:55 85 146/71 H 05/21/19 16:00 36.6 C 83 24 146/71 H 93 Intake & Output: Intake & Output 05/18/19 05/19/19 05/20/19 05/21/19 23:59 23:59 23:59 23:59 Intake Total 3300 5140 1503.000 Output Total 201 835 0 Balance 3099 4305 1503.000 - Objective General Appearance: positive: Alert, Mild distress (Mainly emotional. Wants this out we will leave. "Why will not you people leave me alone") Eyes Bilateral: positive: PERRL, EOMI ENT: positive: Dry mucous membranes Neck: positive: No JVD. negative: Lymphadenopathy (R), Lymphadenopathy (L), Stiff neck, Carotid bruit Respiratory: positive: Chest non-tender, Rhonchi. negative: Wheezes, Rales Cardiovascular: positive: Regular rate & rhythm, Systolic murmur. negative: Gallop/S4, Friction rub Abdomen: positive: Non-tender, No organomegaly, Nml bowel sounds, No distention Skin: positive: Warm, Dry Extremities: positive: Pedal edema (Especially around his ankles) Neurologic/Psychiatric: positive: CN's nml (2-12), Disoriented to time, Weakness - Lab Results Fish Bones: 05/21/19 04:15 05/21/19 04:15 Other Labs: Lab Results x24hrs 05/21/19 05/21/19 05/21/19 Range/Units 09:17 04:15 04:15 WBC (4.8-10.8) x10^3/uL RBC (4.70-6.10) 10^6/uL Hgb (14.0-18.0) g/dL Hct (42.0-52.0) % MCV (80.0-94.0) fL MCH (27.0-31.0) pg MCHC (32.0-36.0) g/dL RDW (12.0-15.0) % Plt Count (130-450) 10^3/uL MPV (7.4-11.4) fL Neut # (Auto) (1.5-6.6) 10^3/uL Lymph # (Auto) (1.5-3.5) 10^3/uL [place] # (Auto) (0.0-1.0) 10^3/uL Eos # (Auto) (0.0-0.7) 10^3/uL Baso # (Auto) (0.0-0.1) 10^3/uL Absolute Nucleated RBC x10^3/uL Nucleated RBC % /100WBC VBG pH 7.431 H (7.31-7.41) VBG pCO2 35.0 L (41-51) mmHg VBG pO2 148.4 H (25-47) mmHg VBG HCO3 22.8 L (23-28) mmol/L VBG Total CO2 23.8 L (24-29) mmol/L VBG O2 Saturation 98.7 H (60-80) % VBG Base Excess -1.0 (-2 - +2) mmol/L Sodium (135-145) mmol/L Potassium (3.5-5.0) mmol/L Chloride (101-111) mmol/L Carbon Dioxide (21-32) mmol/L Anion Gap (6-13) BUN (6-20) mg/dL Creatinine (0.6-1.2) mg/dL Estimated GFR (MDRD) (>89) Glucose (70-100) mg/dL Calcium (8.5-10.3) mg/dL Phosphorus (2.5-4.6) mg/dL Magnesium (1.7-2.8) mg/dL Albumin 2.6 L (3.2-5.5) g/dL Prostate Specific Ag 0.375 (0.000-2.000) ng/mL Free PSA 0.067 L (0.16-2.81) ng/mL % Free PSA Calc 18 L (25-100) % 05/21/19 05/21/19 Range/Units 04:15 04:15 WBC 11.9 H (4.8-10.8) x10^3/uL RBC 3.66 L (4.70-6.10) 10^6/uL Hgb 12.3 L (14.0-18.0) g/dL Hct 36.1 L (42.0-52.0) % MCV 98.6 H (80.0-94.0) fL MCH 33.6 H (27.0-31.0) pg MCHC 34.1 (32.0-36.0) g/dL RDW 13.4 (12.0-15.0) % Plt Count 113 L (130-450) 10^3/uL MPV 10.9 (7.4-11.4) fL Neut # (Auto) 10.5 H (1.5-6.6) 10^3/uL Lymph # (Auto) 0.4 L (1.5-3.5) 10^3/uL [place] # (Auto) 0.7 (0.0-1.0) 10^3/uL Eos # (Auto) 0.2 (0.0-0.7) 10^3/uL Baso # (Auto) 0.1 (0.0-0.1) 10^3/uL Absolute Nucleated RBC 0.00 x10^3/uL Nucleated RBC % 0.0 /100WBC VBG pH (7.31-7.41) VBG pCO2 (41-51) mmHg VBG pO2 (25-47) mmHg VBG HCO3 (23-28) mmol/L VBG Total CO2 (24-29) mmol/L VBG O2 Saturation (60-80) % VBG Base Excess (-2 - +2) mmol/L Sodium 136 (135-145) mmol/L Potassium 3.5 (3.5-5.0) mmol/L Chloride 104 (101-111) mmol/L Carbon Dioxide 21 (21-32) mmol/L Anion Gap 11.0 (6-13) BUN 21 H (6-20) mg/dL Creatinine 0.6 (0.6-1.2) mg/dL Estimated GFR (MDRD) 128 (>89) Glucose 106 H (70-100) mg/dL Calcium 8.2 L (8.5-10.3) mg/dL Phosphorus 2.6 (2.5-4.6) mg/dL Magnesium 1.9 (1.7-2.8) mg/dL Albumin (3.2-5.5) g/dL Prostate Specific Ag (0.000-2.000) ng/mL Free PSA (0.16-2.81) ng/mL % Free PSA Calc (25-100) % Sepsis Event Note (H) - Evaluation Current Stage of Sepsis: Resolved Possible source of Sepsis: positive: Genitourinary - Sepsis Criteria Sepsis Criteria: Recorded Temperature greater than 38.3C or Less than 36C, Recorded Heart Rate greater than 90 bpm, Recorded Respiratory Rate greater than 20, MAP less than 65 mmHg, Metabolic: lactate > 2 mmol/L Assessment/Plan - Problem List (1) Sepsis Impression: Resolved. he presented as sudden change in mental status with bloody urine in a patient who had an in and out cath 2 weeks ago, and has chronic BPH w LUTS. In ER he was normotensive but tachy, febrile, and signs of severe bacteremia reflected in low WBC, and source was urine. He was placed in ICU with DNR status.Dropped his pressure. Has received a couple of fluid boluses. Also went into A. fib with RVR. That responded with amiodarone drip and is now sinus rhythm. On po amiodarone now. lactic acid has improved to normal. WBC has rebounded to a normal high response as expected and is coming down. Blood culture Growing gram-positive cocci, urine culture is contaminated Patient is still very weak Day #3 Rocephin, day #3 cefepime Plan: Continue antibiotics until bacteria identified BP has rebounded. Stop IVF Transfer from ICU to [place] status Qualifiers: Sepsis type: sepsis due to unspecified organism Qualified Code(s): A41.9 - Sepsis, unspecified organism (2) BPH (benign prostatic hyperplasia) Impression: Bed smells of urine, so does the patient because of his incontinence. I am hoping to avoid a Kolb catheter at this time. So far nursing is not reporting urinary return that is of concern. PSA 0.375, free PSA 0.067. 18% free PSA calculation. Plan: Flomax p.o. Proscar p.o. Qualifiers: Lower urinary tract symptom presence: symptoms present Lower urinary tract symptom detail: urinary frequency Qualified Code(s): N40.1 - Benign prostatic hyperplasia with lower urinary tract symptoms; R35.0 - Frequency of micturition (3) Residual cognitive deficit as late effect of cerebrovascular accident Impression: Family describes memory loss. This morning he is very cranky, tired. Refuses to get out of bed and says he doesn't want to work w PT. He is able to tell me where he is, why is here, who he is. (4) Pelvic fracture Impression: This happened approximately April 26. I will have physical therapy see him today. He is already getting physical therapy through [facility]. The question will be whether he can go home to continue that, or will he need to go to correction facility for rehab. is identified for [facility] is a facility she would want if he needs to do that. Qualifiers: Encounter type: subsequent encounter Pelvic bone location: pubis Sublocation of pubis: superior rim Laterality: left Fracture healing: with routine healing (5) New onset atrial fibrillation Impression: present for short duration 7/9 pm. Resolved after amiodarone drip. EKG done to confirm return to NSR. (6) Glaucoma Impression: was giving him his drops 7/10 am. I have gone ahead and reconcile the list so we can take those from home.
[2019-05-21] MEDS: LATANOPROST 0.005% OPHTH DROPS LEFTEYE SCH (20:09)
[2019-05-22 05:45] LABS: BASOPHILS % (AUTO) 0.2 %; EOSINOPHILS # (AUTO) 0.1 10^3/uL (0.0-0.7); HGB - HEMOGLOBIN 12.9 g/dL (14.0-18.0); LYMPHOCYTES # (AUTO) 0.5 10^3/uL (1.5-3.5); LYMPHOCYTES % (AUTO) 5.2 %; MEAN CORPUSCULAR HEMOGLOBIN 33.1 pg (27.0-31.0); MEAN CORPUSCULAR HGB CONC 33.9 g/dL (32.0-36.0); MEAN CORPUSCULAR VOLUME 97.4 fL (80.0-94.0); MEAN PLATELET VOLUME 10.9 fL (7.4-11.4); MONOCYTES # (AUTO) 0.7 10^3/uL (0.0-1.0); MONOCYTES % (AUTO) 6.7 %; NEUTROPHILS % (AUTO) 86.1 %; PLT - PLATELET COUNT 109 10^3/uL (130-450); RED CELL DISTRIBUTION WIDTH 13.2 % (12.0-15.0); WHITE BLOOD COUNT 10.5 x10^3/uL (4.8-10.8)
[2019-05-22 05:48] LABS: VBG BASE EXCESS -0.1 mmol/L (-2 - +2); VBG PCO2 49.1 mmHg (41-51); VBG PH 7.345 (7.31-7.41); VBG PO2 53.9 mmHg (25-47); VBG TOTAL CO2 27.7 mmol/L (24-29)
[2019-05-22 05:52] LABS: CALCIUM 8.5 mg/dL (8.5-10.3); CREATININE 0.6 mg/dL (0.6-1.2)
[2019-05-22] MEDS: cefTRIAXone 1 GM in SODIUM CHLORIDE 0.9% MINIBAG 100 ML IV SCH (08:00)
[2019-05-22] MEDS: TAMSULOSIN 0.4 MG CAPSULE PO SCH (08:54)
[2019-05-22] MEDS: FINASTERIDE 5 MG TABLET PO SCH (08:54)
[2019-05-22] MEDS: AMIODARONE 200 MG TABLET PO SCH (08:54)
[2019-05-22] MEDS: SODIUM CHLORIDE FLUSH 0.9% 10 ML SYRINGE IVP SCH ×3 (08:54→20:03)
[2019-05-22] MEDS: TIMOLOL 0.5% OPHTH DROPS LEFTEYE SCH ×2 (09:52→20:03)
--- NOTE | 2019-05-22 12:17 | ADVANCE CARE PLANNING NOTE ---
Advance Care Planning - Date/Time Date: 05/22/19 Time: 12:13 - Purpose of encounter Text: Revisit goals of care in view of the patient's improved status from sepsis with UTI - Parties in attendance Parties in attendance: , hospitalist, patient. - Decisional capacity Decisional capacity of: Patient is impaired. He has cognitive deficits and is oriented to place and pe rson but not able to process very well. Very angry at being here. Tending toward not wanting to cooperate with nursing and physical therapy because he does not want to be here. - Subjective/Patient's story Subjective/Patient's story: He has been an independent gentleman who has a residual cognitive deficits of a stroke. He has been struggling with his mobilities over the last few couple of years. Moved from [place] to [facility] 2 years ago. tends to really mitigate his deterioration and severity of his mental status. Daughter, who is a nurse, is much more blunt and realistic. Daughter feels that he is steadily declining over the last 2 years. feels it is only been the last few months. He fell and broke his pelvis. He has been home for about a week and a half since that discharge. Was slowly gaining ground with physical therapy and in- home care providers. They do have long-term care insurance. But he became septic with a urinary tract infection and was brought in. He has now recovered from his initial episode of sepsis after aggressive fluid resuscitation and antibiotics. He is now more awake, alert. But very, very angry of being here. Keeps on stating he wants to go home. Does not want to work with physical therapy. - Objective/Medical story Objective/Medical Story: Elderly gentleman whose had a recent pelvic fracture. Had an in and out catheter in the emergency room. No problems during his 2-day stay for infection. and daughter do describe symptoms of prostatism in the past. Now comes in 2 weeks later with sepsis from a UTI. Has recovered from that episode and is now very weak, tired, more disoriented than his usual baseline. And not happy at being here. - Goals of Care Goals of care determinations: Initially her goals of care were to get him to survive this event, and then to decide from there. If he was not going to survive, he would be transition to home with comfort measures. He has now survived and is very weak, deconditioned from sepsis. Goals of care have changed. She would like him to get rehab because she cannot take care of him even with the in-home support private hire. But I did ask a series of questions that she would need to ponder. I would like her to ask these questions of her self, , and daughters. 1. How did he see his life winding down and at one point would he want to stop treatment? 2. How does he perceive happiness and what makes him happy to be alive? 3. if the things that he does to make himself happy are not able to be done, what disability would cause him to transition to comfort measures only. - Plan Plan: To be discharged to [facility] tomorrow. To continue rehab to allow him to return home to relatively independent status that allows him to transition from a laying, to a sitting, to standing position. Continue with in-home support care paid for by long-term care insurance. And to revisit goals of care planning with his primary care provider. - Code Status Code Status: Do Not Attempt Resuscitation - Time Spent on Advance Care Planning Time spent on advance care plannin minutes
--- NOTE | 2019-05-22 12:27 | PROVIDER PROGRESS NOTE ---
Subjective - Prog Note Date Prog Note Date: 05/22/19 Prog Note Time: 12:24 - Subjective Subjective: he was reluctantly cooperative with physical therapy yesterday. Is a candidate for PT at [facility]. Current Medications - Current Medications Current Medications: Active Medications Amiodarone HCl (Pacerone) 200 mg PO DAILY [facility] Last Admin: 05/22/19 08:54 Dose: 200 mg Benzonatate (Tessalon) 100 mg PO TID PRN PRN Reason: Cough Last Admin: 05/21/19 20:09 Dose: 100 mg Finasteride (Proscar) 5 mg PO DAILY [facility] Last Admin: 05/22/19 08:54 Dose: 5 mg Hydromorphone HCl (Dilaudid Inj Carp) 1 mg IVP Q2HR PRN PRN Reason: Pain 8 to 10 Ceftriaxone Sodium 1 gm/ (Sodium Chloride) 100 mls @ 200 mls/hr IV DAILY [facility] Last Infusion: 05/22/19 08:30 Dose: Infused Sodium Chloride (Normal Saline 0.9%) 500 mls @ 0 mls/hr IV Q24H PRN PRN Reason: TKO RATE Last Infusion: 05/21/19 06:58 Dose: Infused Mineral Oil (Cavilon) 1 applic TOP PRN PRN PRN Reason: Skin Care Ondansetron HCl (Zofran Inj) 4 mg IVP Q6HR PRN PRN Reason: Nausea / Vomiting Ondansetron HCl (Zofran Odt) 4 mg TL Q6HR PRN PRN Reason: Nausea / Vomiting Latanoprost 0.005% (Ophth Drops) 1 each LEFTEYE QPM [facility] Last Admin: 05/21/19 20:09 Dose: 1 each Timolol 0.5% Ophth (Drops) 1 each LEFTEYE BID [facility] Last Admin: 05/22/19 09:52 Dose: 1 each Sodium Chloride (Normal Saline Flush 0.9%) 10 ml IVP 0100,0900,1700 [facility] Last Admin: 05/22/19 08:54 Dose: 10 ml Sodium Chloride (Normal Saline Flush 0.9%) 10 ml IVP PRN PRN PRN Reason: NEEDED PER PROVIDER ORDERS Tamsulosin HCl (Flomax) 0.4 mg PO DAILY [facility] Last Admin: 05/22/19 08:54 Dose: 0.4 mg Aspirin/Dipyridamole [Aggrenox] 1 cap PO DAILY 05/14/16 Latanoprost 0.005% Ophth Drops [Xalatan Ophth Drops] 1 drops LEFTEYE QPM 05/02/19 Silodosin 8 mg PO DAILY 05/02/19 Timolol 0.5% Ophth Drops [Timoptic 0.5% Ophth Drops] 1 drops LEFTEYE BID 05/02/19 Cholecalciferol (Vitamin D3) [Vitamin D] 2,000 unit PO DAILY 05/19/19 Meloxicam 15 mg PO DAILY PRN 05/19/19 Memantine HCl [Namenda] 10 mg PO BID 05/19/19 Objective - Vital Signs/Intake & Output Reviewed Vital Signs: Yes Vital Signs: Vital Signs x48h Temp Pulse Resp BP Pulse Ox 05/22/19 09:00 36.1 C L 74 21 145/82 H 94 Intake & Output: Intake & Output 05/19/19 05/20/19 05/21/19 05/22/19 23:59 23:59 23:59 23:59 Intake Total 3300 5140 1673.000 350 Output Total 201 835 0 Balance 3099 4305 1673.000 350 - Objective General Appearance: positive: No acute distress, Other (sleeping) ENT: positive: Pharynx nml Neck: positive: No JVD. negative: Stiff neck, Carotid bruit Respiratory: positive: Chest non-tender, Other (upper airway breath sounds from a patient w sonorous respirations). negative: Wheezes, Rales, Rhonchi Cardiovascular: positive: Regular rate & rhythm. negative: Systolic murmur, Gallop/S4, Friction rub Abdomen: positive: Non-tender, No organomegaly, Nml bowel sounds, No distention Skin: positive: Warm, Dry Extremities: positive: Pedal edema (around malleoli, SCD and veronique on) Neurologic/Psychiatric: positive: CN's nml (2-12) (deaf), Motor nml (ataxia, mild), Disoriented to time, Weakness (generalized) - Lab Results Fish Bones: 05/22/19 04:40 05/22/19 04:40 Other Labs: Lab Results x24hrs 05/22/19 05/22/19 05/22/19 Range/Units 04:40 04:40 04:40 WBC 10.5 (4.8-10.8) x10^3/uL RBC 3.90 L (4.70-6.10) 10^6/uL Hgb 12.9 L (14.0-18.0) g/dL Hct 38.0 L (42.0-52.0) % MCV 97.4 H (80.0-94.0) fL MCH 33.1 H (27.0-31.0) pg MCHC 33.9 (32.0-36.0) g/dL RDW 13.2 (12.0-15.0) % Plt Count 109 L (130-450) 10^3/uL MPV 10.9 (7.4-11.4) fL Neut # (Auto) 9.0 H (1.5-6.6) 10^3/uL Lymph # (Auto) 0.5 L (1.5-3.5) 10^3/uL [place] # (Auto) 0.7 (0.0-1.0) 10^3/uL Eos # (Auto) 0.1 (0.0-0.7) 10^3/uL Baso # (Auto) 0.0 (0.0-0.1) 10^3/uL Absolute Nucleated RBC 0.00 x10^3/uL Nucleated RBC % 0.0 /100WBC VBG pH 7.345 (7.31-7.41) VBG pCO2 49.1 (41-51) mmHg VBG pO2 53.9 H (25-47) mmHg VBG HCO3 26.2 (23-28) mmol/L VBG Total CO2 27.7 (24-29) mmol/L VBG O2 Saturation 88.7 H (60-80) % VBG Base Excess -0.1 (-2 - +2) mmol/L Sodium 139 (135-145) mmol/L Potassium 3.6 (3.5-5.0) mmol/L Chloride 102 (101-111) mmol/L Carbon Dioxide 26 (21-32) mmol/L Anion Gap 11.0 (6-13) BUN 22 H (6-20) mg/dL Creatinine 0.6 (0.6-1.2) mg/dL Estimated GFR (MDRD) 128 (>89) Glucose 113 H (70-100) mg/dL Calcium 8.5 (8.5-10.3) mg/dL Phosphorus 2.0 L (2.5-4.6) mg/dL Magnesium 2.0 (1.7-2.8) mg/dL ABX Reporting Has patient been on IV antibiotics over the past 48 hours?: Yes Sepsis Event Note (H) - Evaluation Current Stage of Sepsis: Resolved Possible source of Sepsis: positive: Genitourinary - Sepsis Criteria Sepsis Criteria: Recorded Temperature greater than 38.3C or Less than 36C, Recorded Heart Rate greater than 90 bpm, Recorded Respiratory Rate greater than 20, MAP less than 65 mmHg, Metabolic: lactate > 2 mmol/L Assessment/Plan - Problem List (1) Weakness acquired in ICU Impression: This gentleman has baseline balance issues from his old strokes and aging phenomena. So his ataxia, generalized weakness of gotten worse while being in the unit. I have transitioned him to MedSurg status. Plan: PT and OT evaluation (2) BPH with LUTS Still with incontinence and is worried he won't recover. I am hoping to avoid a Kolb catheter at this time. So far nursing is not reporting urinary retention that is of concern. PSA 0.375, free PSA 0.067. 18% free PSA calculation. I reassured her that he most likely will still have urinary retention from prostatism with urgency and frequency but no worse than it was when he came into the hospital. I think the last 2 weeks was an anomaly. Hopefully once he is stronger, more aware, and stronger and fast enough to get to a bathroom he should no longer have so much incontinence. Plan: Flomax p.o. Proscar p.o. Qualifiers: Lower urinary tract symptom presence: symptoms present Lower urinary tract symptom detail: urinary frequency Qualified Code(s): N40.1 - Benign prostatic hyperplasia with lower urinary tract symptoms; R35.0 - Frequency of micturition (3) Residual cognitive deficit as late effect of cerebrovascular accident Impression: Family describes memory loss. This morning he is very cranky, tired. Refuses to get out of bed and says he doesn't want to work w PT. He is able to tell me where he is, why is here, who he is. (4) Pelvic fracture Impression: This happened approximately April 26. I will have physical therapy see him today. He is already getting physical therapy through [facility]. The question will be whether he can go home to continue that, or will he need to go to care home facility for rehab. is identified for [facility] is a facility she would want if he needs to do that. After consideration, however, she like to be closer to home and has identified [facility] Qualifiers: Encounter type: subsequent encounter Pelvic bone location: pubis Sublocation of pubis: superior rim Laterality: left Fracture healing: with routine healing (5) New onset atrial fibrillation Impression: present for short duration 7 pm. Resolved after amiodarone drip. EKG done to confirm return to NSR. (6) Glaucoma Impression: was giving him his drops 710 am. I have gone ahead and reconcile the list so we can take those from home. (7) Sepsis Impression: Resolved. he presented as sudden change in mental status with bloody urine in a patient who had an in and out cath 2 weeks ago, and has chronic BPH w LUTS. In ER he was normotensive but tachy, febrile, and signs of severe bacteremia reflected in low WBC, and source was urine. He was placed in ICU with DNR status.Dropped his pressure. Had received a couple of fluid boluses. Also went into A. fib with RVR. That responded with amiodarone drip and is now sinus rhythm. On po amiodarone now. lactic acid has improved to normal. WBC has rebounded to a normal high response as expected and is coming down. Blood culture Growing gram-positive cocci, urine culture is contaminated Patient is still very weak Day #3 Rocephin, I had incorrectly documented that he was on cefepime. He is only been receiving Rocephin as a single agent. Cefepime was given as a one- time dose in the ICU. Plan: Continue antibiotics until bacteria identified. Still continues to be a gram- positive cocci on both sets of blood cultures with urine culture being polymicrobial growth. BP has rebounded. Stopped IVF 05/21. Transfer from ICU to [place] status 05/21. Qualifiers: Sepsis type: sepsis due to unspecified organism Qualified Code(s): A41.9 - Sepsis, unspecified organism
[2019-05-22] MEDS: LATANOPROST 0.005% OPHTH DROPS LEFTEYE SCH (20:03)
[2019-05-22] MEDS: BENZONATATE 100 MG CAPSULE PO PRN (20:03)
[2019-05-23] MEDS: cefTRIAXone 1 GM in SODIUM CHLORIDE 0.9% MINIBAG 100 ML IV SCH (09:25)
[2019-05-23] MEDS: AMIODARONE 200 MG TABLET PO SCH (09:44)
[2019-05-23] MEDS: FINASTERIDE 5 MG TABLET PO SCH (09:44)
[2019-05-23] MEDS: TAMSULOSIN 0.4 MG CAPSULE PO SCH (09:44)
[2019-05-23] MEDS: AZITHROMYCIN INJ 500 MG in SODIUM CHLORIDE 0.9% 250 ML IV SCH (10:28)
--- NOTE | 2019-05-23 10:28 | PROVIDER PROGRESS NOTE ---
Subjective - Prog Note Date Prog Note Date: 05/23/19 Prog Note Time: 10:36 - Subjective Subjective: Tired. But more alert this morning. Less cranky. He complains of chest congestion and coughing more. Not bringing up much phlegm but just a lot more coughing and congestion. RN confirms. Eating about half of his breakfast. Current Medications - Current Medications Current Medications: Active Medications Amiodarone HCl (Pacerone) 200 mg PO DAILY [facility] Last Admin: 05/23/19 09:44 Dose: 200 mg Benzonatate (Tessalon) 100 mg PO TID PRN PRN Reason: Cough Last Admin: 05/22/19 20:03 Dose: 100 mg Finasteride (Proscar) 5 mg PO DAILY [facility] Last Admin: 05/23/19 09:44 Dose: 5 mg Hydromorphone HCl (Dilaudid Inj Carp) 1 mg IVP Q2HR PRN PRN Reason: Pain 8 to 10 Ceftriaxone Sodium 1 gm/ (Sodium Chloride) 100 mls @ 200 mls/hr IV DAILY [facility] Last Infusion: 05/23/19 10:28 Dose: Infused Sodium Chloride (Normal Saline 0.9%) 500 mls @ 0 mls/hr IV Q24H PRN PRN Reason: TKO RATE Last Infusion: 05/21/19 06:58 Dose: Infused Azithromycin 500 mg/ Sodium (Chloride) 250 mls @ 250 mls/hr IV 1000 [facility] Last Admin: 05/23/19 10:28 Dose: 250 mls/hr Mineral Oil (Cavilon) 1 applic TOP PRN PRN PRN Reason: Skin Care Ondansetron HCl (Zofran Inj) 4 mg IVP Q6HR PRN PRN Reason: Nausea / Vomiting Ondansetron HCl (Zofran Odt) 4 mg TL Q6HR PRN PRN Reason: Nausea / Vomiting Latanoprost 0.005% (Ophth Drops) 1 each LEFTEYE QPM [facility] Last Admin: 05/22/19 20:03 Dose: 1 each Timolol 0.5% Ophth (Drops) 1 each LEFTEYE BID [facility] Last Admin: 05/22/19 20:03 Dose: 1 each Sodium Chloride (Normal Saline Flush 0.9%) 10 ml IVP 0100,0900,1700 [facility] Last Admin: 05/23/19 10:29 Dose: Not Given Sodium Chloride (Normal Saline Flush 0.9%) 10 ml IVP PRN PRN PRN Reason: NEEDED PER PROVIDER ORDERS Tamsulosin HCl (Flomax) 0.4 mg PO DAILY [facility] Last Admin: 05/23/19 09:44 Dose: 0.4 mg Aspirin/Dipyridamole [Aggrenox] 1 cap PO DAILY 05/14/16 Latanoprost 0.005% Ophth Drops [Xalatan Ophth Drops] 1 drops LEFTEYE QPM 05/02/19 Silodosin 8 mg PO DAILY 05/02/19 Timolol 0.5% Ophth Drops [Timoptic 0.5% Ophth Drops] 1 drops LEFTEYE BID 05/02/19 Cholecalciferol (Vitamin D3) [Vitamin D] 2,000 unit PO DAILY 05/19/19 Meloxicam 15 mg PO DAILY PRN 05/19/19 Memantine HCl [Namenda] 10 mg PO BID 05/19/19 Objective - Vital Signs/Intake & Output Reviewed Vital Signs: Yes Vital Signs: Vital Signs x48h Temp Pulse Resp BP Pulse Ox 05/23/19 09:01 36.6 C 84 25 H 142/84 H 96 05/23/19 06:00 75 20 160/91 H 97 Intake & Output: Intake & Output 05/20/19 05/21/19 05/22/19 05/23/19 23:59 23:59 23:59 23:59 Intake Total 5140 1673.000 600 Output Total 835 0 250 150 Balance 4305 1673.000 350 -150 - Objective General Appearance: positive: No acute distress, Alert, Other (Sitting up in bed to eat his breakfast, but his core strength is not completely up to snuff. Head hangs forward and he is unable to have the strength reposition himself in the bed. Strong phlegmy cough during my exam.) ENT: positive: Pharynx nml Neck: positive: No JVD. negative: Stiff neck, Carotid bruit Respiratory: positive: Chest non-tender, Rhonchi (Much worse on left side than right, Left lower lobe and left mid lobe). negative: Wheezes, Rales Cardiovascular: positive: Regular rate & rhythm, Systolic murmur. negative: Gallop/S4, Friction rub Abdomen: positive: Non-tender, No organomegaly, Nml bowel sounds, No distention Skin: positive: Warm, Dry Extremities: positive: Full ROM, No pedal edema Neurologic/Psychiatric: positive: CN's nml (2-12), Motor nml, Disoriented to time, Weakness - Lab Results Fish Bones: 05/22/19 04:40 05/22/19 04:40 ABX Reporting Has patient been on IV antibiotics over the past 48 hours?: Yes Sepsis Event Note (H) - Evaluation Current Stage of Sepsis: Resolved Possible source of Sepsis: positive: Genitourinary - Sepsis Criteria Sepsis Criteria: Recorded Temperature greater than 38.3C or Less than 36C, Recorded Heart Rate greater than 90 bpm, Recorded Respiratory Rate greater than 20, MAP less than 65 mmHg, Metabolic: lactate > 2 mmol/L Assessment/Plan - Problem List (1) Cough Impression: This is a gentleman who was admitted with sepsis. Found to have probable uro sepsis. Nevertheless check x-ray and admission and checks x-ray on the should not have gradually worsening particular opacities compatible more with congestive heart failure than pneumonia. We diuresed him. The , and he is done well. Today he has increasing cough, increasing chest congestion productive of phlegm. No fever. No tachycardia. White cell count is coming down from 18,000 and is 10.5 today. Plan: Delay discharge to SNF. I thought he was a go to day but with this new finding will wait 1 more day may be 2. Check chest x-ray Already on ceftriaxone and I will add azithromycin. If chest x-ray indicates that I need to give broader spectrum, will add Levaquin (2) Weakness acquired in ICU Impression: This gentleman has baseline balance issues from his old strokes and aging phenomena. So his ataxia, generalized weakness of gotten worse while being in the unit. I have transitioned him to MedSurg status. Per PT: Rajesh was agreeable to PT this day however, demonstrated significant difficulty with all activities. He was dependent with bed mobility as well as the sit to stand requiring x2 for each. His was adimant about his abilities to stand and was pushing PT to make sure he stood this day. He was able to do so however, we refused to place him in the bedside chair without the presence of a rachel lift pad due to safety of the pt and his healthcare team with attempts to return to bed when necessary. Plan: Continue PT and OT treatment (3) BPH with LUTS Still with incontinence and is worried he won't recover. I am hoping to avoid a Kolb catheter at this time. So far nursing is not reporting urinary retention that is of concern. PSA 0.375, free PSA 0.067. 18% free PSA calculation. I reassured her that he most likely will still have urinary retention from prostatism with urgency and frequency but no worse than it was when he came into the hospital. I think the last 2 weeks was an anomaly. Hopefully once he is stronger, more aware, and stronger and fast enough to get to a bathroom he should no longer have so much incontinence. Plan: Flomax p.o. continue and Proscar p.o. 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 He has been very cranky a couple of days in a row. Needs a lot of cajoling. But he is cooperating with nursing and physical therapy. (5) Pelvic fracture Impression: This happened approximately April 26. I will have physical therapy see him today. He is already getting physical therapy through [facility]. The q uestion will be whether he can go home to continue that, or will he need to go to [facility] facility for rehab. is identified for [facility] a facility she would want if he needs to do that. After consideration, however, she like to be closer to home and has identified [facility] Qualifiers: Encounter type: subsequent encounter Pelvic bone location: pubis Sublocation of pubis: superior rim Laterality: left Fracture healing: with routine healing (6) New onset atrial fibrillation Impression: present for short duration 7/9 pm. Resolved after amiodarone drip. EKG done to confirm return to NSR. (7) Glaucoma Impression: was giving him his drops 7/10 am. I have gone ahead and reconcile the list so we can take those from home. (8) Sepsis Impression: Resolved. he presented as sudden change in mental status with bloody urine in a patient who had an in and out cath 2 weeks ago, and has chronic BPH w LUTS. In ER he was normotensive but tachy, febrile, and signs of severe bacteremia reflected in low WBC, and source was urine. He was placed in ICU with DNR status.Dropped his pressure. Had received a couple of fluid boluses. Also went into A. fib with RVR. That responded with amiodarone drip and is now sinus rhythm. On po amiodarone now. lactic acid has improved to normal. WBC has rebounded to a normal high response as expected and is coming down. Blood culture Growing gram-positive cocci, urine culture is contaminated. His blood cultures from May 19 are still in process. There are gram-positive cocci but they are not staph, strep, enterococcus, Listeria. It was sent to a reference lab. Today's day #4 as we await those identifications. Patient is still very weak Day #4 Rocephin, I had incorrectly documented that he was on cefepime. He is only been receiving Rocephin as a single agent. Cefepime was given as a one- time dose in the ICU. Plan: Continue antibiotics until bacteria identified. Still continues to be a gram- positive cocci on both sets of blood cultures with urine culture being polymicrobial growth. Add azithromycin. BP has rebounded. Stopped IVF 05/21. Transfer from ICU to [facility] status 05/21. Qualifiers: Sepsis type: sepsis due to unspecified organism Qualified Code(s): A41.9 - Sepsis, unspecified organism
[2019-05-23] MEDS: SODIUM CHLORIDE FLUSH 0.9% 10 ML SYRINGE IVP SCH ×2 (10:29→17:26)
--- NOTE | 2019-05-23 11:43 | XRAY Report ---
Reason: new cough, phlegm Procedure Date: 05/23/2019 Accession Number: [id number] / [id number] Procedure: XR - Chest 1 View X-Ray CPT Code: 98651 FULL RESULT: EXAM: CHEST RADIOGRAPHY EXAM DATE: 05/23/2019 09:19 AM. CLINICAL HISTORY: New cough, phlegm. COMPARISON: CHEST 1 VIEW 05/20/2019 6:31 PM CHEST 1 VIEW 05/19/2019 4:35 PM CHEST 1 VIEW 05/02/2019 6:55 PM. TECHNIQUE: 1 view. FINDINGS: Lungs/Pleura: Stable, moderate bilateral diffuse coarse interstitial opacities. Increased mild bilateral lower lobe airspace opacification, left greater than right. Stable, small left and trace right pleural effusions. Stable moderate biapical pleural parenchymal scarring. No pneumothorax. Mediastinum: Heart size and mediastinal contours within normal limits Other: Severe left glenohumeral osteoarthritis, stable IMPRESSION: 1. Stable, moderate diffuse bilateral coarse interstitial opacities may represent mild pulmonary edema superimposed on fibrosis. Stable, small left and trace right pleural effusions. Constellation of findings may represent congestive heart failure. 2. Increased, left greater than right bilateral lower lobe airspace disease, possibly due to pneumonia and/or atelectasis. RADIA
[2019-05-23] MEDS: TIMOLOL 0.5% OPHTH DROPS LEFTEYE SCH ×2 (11:48→20:47)
[2019-05-23] MEDS: LATANOPROST 0.005% OPHTH DROPS LEFTEYE SCH (20:45)
[2019-05-23] MEDS: BENZONATATE 100 MG CAPSULE PO PRN (22:04)
[2019-05-24] MEDS: SODIUM CHLORIDE FLUSH 0.9% 10 ML SYRINGE IVP SCH ×3 (01:38→18:31)
[2019-05-24] MEDS: cefTRIAXone 1 GM in SODIUM CHLORIDE 0.9% MINIBAG 100 ML IV SCH (08:43)
[2019-05-24] MEDS: TIMOLOL 0.5% OPHTH DROPS LEFTEYE SCH ×2 (08:44→20:09)
[2019-05-24] MEDS: AMIODARONE 200 MG TABLET PO SCH (08:44)
[2019-05-24] MEDS: TAMSULOSIN 0.4 MG CAPSULE PO SCH (08:44)
[2019-05-24] MEDS: FINASTERIDE 5 MG TABLET PO SCH (08:44)
[2019-05-24] MEDS: BENZONATATE 100 MG CAPSULE PO PRN ×2 (08:44→20:07)
[2019-05-24] MEDS: AZITHROMYCIN INJ 500 MG in SODIUM CHLORIDE 0.9% 250 ML IV SCH (09:42)
--- NOTE | 2019-05-24 16:21 | PROVIDER PROGRESS NOTE ---
Subjective - Prog Note Date Prog Note Date: 05/24/19 Prog Note Time: 16:20 - Subjective Subjective: still coughing but not as harshly as yesterday. more alert. more talkative. ate all his breakfast and wanted more. Current Medications - Current Medications Current Medications: Active Medications Amiodarone HCl (Pacerone) 200 mg PO DAILY [facility] Last Admin: 05/24/19 08:44 Dose: 200 mg Benzonatate (Tessalon) 100 mg PO TID PRN PRN Reason: Cough Last Admin: 05/24/19 08:44 Dose: 100 mg Finasteride (Proscar) 5 mg PO DAILY [facility] Last Admin: 05/24/19 08:44 Dose: 5 mg Hydromorphone HCl (Dilaudid Inj Carp) 1 mg IVP Q2HR PRN PRN Reason: Pain 8 to 10 Ceftriaxone Sodium 1 gm/ (Sodium Chloride) 100 mls @ 200 mls/hr IV DAILY [facility] Last Infusion: 05/24/19 09:19 Dose: Infused Sodium Chloride (Normal Saline 0.9%) 500 mls @ 0 mls/hr IV Q24H PRN PRN Reason: TKO RATE Last Infusion: 05/21/19 06:58 Dose: Infused Azithromycin 500 mg/ Sodium (Chloride) 250 mls @ 250 mls/hr IV 1000 [facility] Last Infusion: 05/24/19 11:07 Dose: Infused Mineral Oil (Cavilon) 1 applic TOP PRN PRN PRN Reason: Skin Care Ondansetron HCl (Zofran Inj) 4 mg IVP Q6HR PRN PRN Reason: Nausea / Vomiting Ondansetron HCl (Zofran Odt) 4 mg TL Q6HR PRN PRN Reason: Nausea / Vomiting Latanoprost 0.005% (Ophth Drops) 1 each LEFTEYE QPM [facility] Last Admin: 05/23/19 20:45 Dose: 1 each Timolol 0.5% Ophth (Drops) 1 each LEFTEYE BID [facility] Last Admin: 05/24/19 08:44 Dose: 1 each Sodium Chloride (Normal Saline Flush 0.9%) 10 ml IVP 0100,0900,1700 [facility] Last Admin: 05/24/19 08:44 Dose: 10 ml Sodium Chloride (Normal Saline Flush 0.9%) 10 ml IVP PRN PRN PRN Reason: NEEDED PER PROVIDER ORDERS Tamsulosin HCl (Flomax) 0.4 mg PO DAILY [facility] Last Admin: 05/24/19 08:44 Dose: 0.4 mg Aspirin/Dipyridamole [Aggrenox] 1 cap PO DAILY 05/14/16 Latanoprost 0.005% Ophth Drops [Xalatan Ophth Drops] 1 drops LEFTEYE QPM 05/02/19 Silodosin 8 mg PO DAILY 05/02/19 Timolol 0.5% Ophth Drops [Timoptic 0.5% Ophth Drops] 1 drops LEFTEYE BID 05/02/19 Cholecalciferol (Vitamin D3) [Vitamin D] 2,000 unit PO DAILY 05/19/19 Meloxicam 15 mg PO DAILY PRN 05/19/19 Memantine HCl [Namenda] 10 mg PO BID 05/19/19 Objective - Vital Signs/Intake & Output Reviewed Vital Signs: Yes Intake & Output: Intake & Output 05/21/19 05/22/19 05/23/19 05/24/19 23:59 23:59 23:59 23:59 Intake Total 1673.437 528 7683 1080 Output Total 0 250 750 150 Balance 1673.176 330 7128 930 - Objective General Appearance: positive: No acute distress, Alert, Other (chest congested with a phlegmy cough, but no distress) Eyes Bilateral: positive: PERRL, EOMI ENT: positive: No signs of dehydration Neck: positive: No JVD. negative: Stiff neck, Carotid bruit Respiratory: positive: Chest non-tender, No respiratory distress, Rhonchi (bilateral and worse in lower lobes.). negative: Wheezes, Rales Cardiovascular: positive: Regular rate & rhythm. negative: Gallop/S4, Friction rub Abdomen: positive: Non-tender, No organomegaly, Nml bowel sounds, No distention Skin: positive: Warm, Dry Extremities: positive: Full ROM, Pedal edema Neurologic/Psychiatric: positive: CN's nml (2-12), Motor nml (jut weak and off balance), Disoriented to place, Disoriented to time - Lab Results Fish Bones: 05/22/19 04:40 05/22/19 04:40 ABX Reporting Has patient been on IV antibiotics over the past 48 hours?: Yes Sepsis Event Note (H) - Evaluation Current Stage of Sepsis: Resolved Possible source of Sepsis: positive: Genitourinary - Sepsis Criteria Sepsis Criteria: Recorded Temperature greater than 38.3C or Less than 36C, Recorded Heart Rate greater than 90 bpm, Recorded Respiratory Rate greater than 20, MAP less than 65 mmHg, Metabolic: lactate > 2 mmol/L Assessment/Plan - Problem List (1) Pneumonia Impression: This is a gentleman who was admitted with sepsis. Found to have probable urosepsis. Nevertheless check x-ray on admission and chest x-ray on the s howed gradually worsening particular opacities compatible more with congestive heart failure than pneumonia. We diuresed him. The , and he has done well. on he had increasing cough, increasing chest congestion productive of phlegm. No fever. No tachycardia. White cell count is coming down from 18,000 and is 10.5 on 05/22. I delayed discharge to long-term 05/23 suspecting he may be having pneumonia. Chest x-ray showed bibasilar opacities that were worse. Left greater than right. He has improved mentation and appetite this morning. Plan: Already on ceftriaxone Day #5 and I added azithromycin 05/23. check CBC in am. Plan for transfer to SNF for rehab in am for PT and to complete oral abx. (2) Weakness acquired in ICU Impression: This gentleman has baseline balance issues from his old strokes and aging phenomena. So his ataxia, generalized weakness of gotten worse while being in the unit. I have transitioned him to MedSurg status. Day 2 on MS. Per PT: 05/23:Rajesh was agreeable to PT this day however, demonstrated significant difficulty with all activities. He was dependent with bed mobility as well as the sit to stand requiring x2 for each. His was adamant about his abilities to stand and was pushing PT to make sure he stood this day. He was able to do so however, we refused to place him in the bedside chair without the presence of a rachel lift pad due to safety of the pt and his healthcare team with attempts to return to bed when necessary. 05/24:Pt.is an 84 y.o. M w/UTI and sepsis, confusion who presents with generalized weakness and decline in ability to transfer, stand and walk; patient follows single command cues most of the time and was cooperative in PT. Patient provided good effort and assist with bedmobility, rolling to left side and pushing up to sitting with modA/1 and VC. Patient able to sit EOB with hand support on bed. STS with modA?2 and transfer stand/pivot with FWW modA/2 with extensive VC and high effort from patient who has difficulties moving his feet. Patient will require ongoing PT for functional mobility training, OOB transfers and gait progression. Plan: Continue PT and OT treatment (3) BPH with LUTS Still with incontinence and is worried he won't recover. I am hoping to avoid a Kolb catheter at this time. So far nursing is not reporting urinary retention that is of concern. PSA 0.375, free PSA 0.067. 18% free PSA calculation. I reassured her that he most likely will still have urinary retent ion from prostatism with urgency and frequency but no worse than it was when he came into the hospital. I think the last 2 weeks was an anomaly. Hopefully once he is stronger, more aware, and stronger and fast enough to get to a bathroom he should no longer have so much incontinence. Plan: Flomax p.o. continue and Proscar p.o. 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 He has been very cranky a couple of days in a row. Needs a lot of cajoling. But he is cooperating with nursing and physical therapy. (5) Pelvic fracture Impression: This happened approximately April 26. He was already getting physical therapy through [facility]. The question will be whether he can go home to continue that, or will he need to go to assisted facility for rehab. is identified for [facility] is a facility she would want if he needs to do that. After consideration, however, she like to be closer to home and has identified [facility] and PT does feel he will benefit from rehab at SNF Qualifiers: Encounter type: subsequent encounter Pelvic bone location: pubis Sublocation of pubis: superior rim Laterality: left Fracture healing: with routine healing (6) New onset atrial fibrillation Impression: present for short duration 7/9 pm. Resolved after amiodarone drip. EKG done to confirm return to NSR. (7) Glaucoma Impression: was giving him his drops 7/10 am. I have gone ahead and reconcile the list so we can take those from home. (8) Sepsis resolved. Presumed UTI. Impression: he presented as sudden change in mental status with bloody urine in a patient who had an in and out cath 2 weeks ago, and has chronic BPH w LUTS. In ER he was normotensive but tachy, febrile, and signs of severe bacteremia reflected in low WBC, and source was urine. He was placed in ICU with DNR status.Dropped his pressure. Had received a couple of fluid boluses. Also went into A. fib with RVR. That responded with amiodarone drip and is now sinus rhythm. On po amiodarone now. lactic acid has improved to normal. WBC has rebounded to a normal high response as expected and was coming down until pneumonia. Blood culture Growing gram-positive cocci, urine culture is contaminated. His blood cultures from May 19 are still in process. There are gram-positive cocci but they are not staph, strep, enterococcus, Listeria. It was sent to a reference lab. Today's day #5 as we await those identifications. Patient is still very weak Day #5 Rocephin, I had incorrectly documented that he was on cefepime. He is only been receiving Rocephin as a single agent. Cefepime was given as a one- time dose in the ICU.
[2019-05-24] MEDS: LATANOPROST 0.005% OPHTH DROPS LEFTEYE SCH (20:33)
[2019-05-25] MEDS: SODIUM CHLORIDE FLUSH 0.9% 10 ML SYRINGE IVP SCH ×2 (02:06→08:45)
[2019-05-25] MEDS: TAMSULOSIN 0.4 MG CAPSULE PO SCH (08:45)
[2019-05-25] MEDS: FINASTERIDE 5 MG TABLET PO SCH (08:45)
[2019-05-25] MEDS: cefTRIAXone 1 GM in SODIUM CHLORIDE 0.9% MINIBAG 100 ML IV SCH (08:45)
[2019-05-25] MEDS: AMIODARONE 200 MG TABLET PO SCH (08:45)
[2019-05-25] MEDS: TIMOLOL 0.5% OPHTH DROPS LEFTEYE SCH (08:46)
[2019-05-25] MEDS: AZITHROMYCIN INJ 500 MG in SODIUM CHLORIDE 0.9% 250 ML IV SCH (09:19)
--- NOTE | 2019-05-25 10:15 | Discharge Plan ---
"Discharge Plan for SNF / [facility] - Discharge Plan And Transition Orders Problem Reviewed?: Yes Disposition: 03 SNF DC/Xfer Condition: Serious Allergies and Adverse Reactions: Allergies Allergy/AdvReac Type Severity Reaction Status Date / Time No Known Drug Allergies Allergy Verified 05/19/19 16:05 Health Concerns: You were admitted to the hospital because of a urinary tract infection causing severe infection. It caused you to be confused, weak. You then had a short burst of an arrhythmia called atrial fibrillation and that went away on its own. You then developed pneumonia, very mild, on Saturday the . You are weak, tired. You cannot return to home because you are too weak to be taken care of by your . You will be going to a rehab facility temporarily to increase your endurance and strength and then you can return to home. You will finish your antibiotics there. Plan of Treatment: 1. Rehabilitation at [facility] to increase your strength and endura nce. 2. Finish antibiotics for pneumonia and urinary tract infection Care Goals: To return home. You already have insurance for long-term care and will be continuing with in-home support providers in addition to your . - SNF / [facility] Transition Orders Admit to (Facility): [facility] Under the care of (Name): Braxton Diaz MD Discharge Diagnosis: 1. Sepsis with UTI, resolved 2. A. fib with RVR, resolved 3. Pelvic fracture April 26 with fall at home 4. 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 Weakness acquired after being in the hospital, acute on chronic 6. Pneumonia, resolved 7. Hypertension 8. Hyperlipidemia 9. 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 Essential tremor 11. Benign prostatic hypertrophy with nocturia and frequency 12. Osteoporosis Medicare Certification Statement: I certify that [facility] is medically necessary on a continuing basis for any of the conditions for which she/he is receiving care d uring hospitalization. Notify PCP of admission and forward orders to primary provider for signature. Weight on admission and: Weekly Other Notification Orders: Call PCP immediately if patient develops dyspnea, chest pain/tightness or edema. House Bowel Program: Yes Additional Bowel Program Orders: If no BM after 2 days, nurse may give M.O.M. 30ml PO PRN and/or ducolax Supp 1 NH and/or STEVE 250mg P.O., and/or senna 1-2 tabs PO. On day 3 nurse may give repeat above order until residents constipation is resolved. Annual Influenza Vaccine (between Jul 12 and February 08): Yes Two-step PPD per [facility] [id number] or approved exception documents: Yes Oxygen Orders: Nasal cannula oxygen to keep O2 sats greater than or equal to 92% as needed Lab Tests or X-ray Orders: CBC, BMP in 1 week Medication Orders: PLEASE REFER TO THE DISCHARGE MEDICATION LIST. Insulin Orders?: No - Medications New Prescriptions: Azithromycin 250 mg PO DAILY 5 Days #4 tab Finasteride [Proscar] 5 mg PO DAILY #1 tablet Levofloxacin [Levaquin] 500 mg PO DAILY #4 tablet - Diet Type: Geriatric Texture: Regular Liquids: Thin May have monthly special meal: Yes - Therapies | Activity Therapy: Evaluation | Treat if indicated: PT, OT, Swallowing / ST Rehabilitation Potential: Return to independent living Activity: Activity as Tolerated"
[2019-05-25 13:37] VITALS: BP 141/73
--- NOTE | 2019-05-26 14:24 | DISCHARGE SUMMARY ---
Discharge Summary Admit Date: 05/19/19 Discharge Date: 05/25/19 Discharging Provider: Crystal Petersen MD Primary Care Provider: Braxton Magana MD Code Status: Do Not Attempt Resuscitation Condition at Discharge: Fair Discharge Disposition: 03 SNF DC/Xfer Discharge Facility Name: [facility] ALL[facility]GIES Allergies/Adverse Reactions: Allergies Allergy/AdvReac Type Severity Reaction Status Date / Time No Known Drug Allergies Allergy Verified 05/19/19 16:05 - MEDICATIONS Home Medications: Ambulatory Orders Medication Instructions Recorded Confirmed Amiodarone [Pacerone] 200 mg PO DAILY tablet 05/25/19 Aspirin/Dipyridamole [Aggrenox] 1 cap PO DAILY #0 05/25/19 05/19/19 Azithromycin 250 mg PO DAILY 5 Days #4 tab 05/25/19 Benzonatate [Tessalon] 100 mg PO TID PRN capsule 05/25/19 Cholecalciferol (Vitamin D3) 2,000 unit PO DAILY #0 05/25/19 05/19/19 [Vitamin D3] Finasteride [Proscar] 5 mg PO DAILY #1 tablet 05/25/19 Latanoprost 0.005% Ophth Drops 1 drops LEFTEYE QPM #0 05/25/19 05/19/19 [Xalatan Ophth Drops] Levofloxacin [Levaquin] 500 mg PO DAILY #4 tablet 05/25/19 Meloxicam 15 mg PO DAILY PRN #1 05/25/19 05/19/19 Memantine HCl [Namenda] 10 mg PO BID #0 05/25/19 05/19/19 Tamsulosin [Flomax] 0.4 mg PO DAILY capsule 05/25/19 Timolol 0.5% Ophth Drops [Timoptic 1 drops LEFTEYE BID #0 05/25/19 05/19/19 0.5% Ophth Drops] - LABS Result Diagrams: 05/22/19 04:40 05/22/19 04:40 - SEPSIS Current Stage of Sepsis: Resolved Possible source of Sepsis: Genitourinary Sepsis Criteria: Recorded Temperature greater than 38.3C or Less than 36C, Recorded Heart Rate greater than 90 bpm, Recorded Respiratory Rate greater than 20, MAP less than 65 mmHg, Metabolic: lactate > 2 mmol/L
--- NOTE | 2019-05-26 15:06 | DISCHARGE SUMMARY ---
Physician: Crystal Petersen MD DATE OF ADMISSION: 05/19/2019 DATE OF DISCHARGE: 05/25/2019 DISCHARGE DIAGNOSES 1. Sepsis. 2. Urinary tract infection. 3. Pelvic fracture. 4. Weakness community-acquired in ICU. 5. Pneumonia. 6. Hypertension. 7. Benign prostatic hypertrophy with lower urinary tract symptoms of obstruction. 8. 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 9. New onset atrial fibrillation. 10. Glaucoma with legal blindness. DISCHARGE MEDICATIONS 1. Amiodarone 200 mg daily. 2. Aggrenox 1 capsule daily. 3. Azithromycin 250 p.o. daily for 4 more days. 4. Levaquin 500 mg p.o. daily for 4 more days. 5. Tessalon 100 mg p.o. t.i.d. p.r.n. cough. 6. Vitamin D 2000 units daily. 7. Proscar 5 mg daily. 8. Tamsulosin 0.4 mg daily. 9. Latanoprost ophthalmic solution 1 drop left eye every evening. 10. Timolol ophthalmic solution 1 drop left eye every evening. 11. Meloxicam 15 mg daily. 12. Namenda 10 mg p.o. b.i.d. PRINCIPAL PROCEDURES 1. Three chest x-rays May 19 and showed faint bibasilar infiltrates. By 05/23/2019 he had mo derate diffuse bilateral coarse interstitial opacities representing mild pulmonary edema, superimpose d on fibrosis. This was stable. However, he had increased left greater than right, bilateral lower lobe airspace disease due to pneumonia. 2. Urine and blood cultures with polymicrobial growth on 05/19/2019. 3. On 05/19/2019, blood cultures with gram-positive cocci. Final report showed Aerococcus urinae in the blood cultures. Both sets. HISTORY OF PRESENT ILLNESS: He is an 84-year-old gentleman who moved to [facility] permanently a couple of years ago from [place]. Prior to that, he has been coming to the [place] every summ er to visit his daughter, who is a nurse and lives here on the [place]. They described him as a very genial gentleman who is starting to have memory loss. He has had bilateral broken legs with postoper ative pneumonia in the past, legal blindness, dementia, and frequent falls as a result of old stroke. He would work out at the gym and get on a bicycle at least 3 times a week. A few months ago, he hu rt his ankle and they felt like there has been a subtle, but steady deterioration since that time sin ce he cannot go to the gym. On 04/29/2019, he fell and hurt his left hip, could not walk very well a nd he went to the emergency room. Imaging revealed no fracture, he was given pain medicine and sent home. After being home, he could not walk and they brought him back to the emergency room on 019 where he now has a pubic ramus fracture in both left inferior and superior that are acute and sub acute. He was slightly dehydrated. He was admitted for hydration and pain management and physical t herapy. Then he was sent home 05/04/2019. During that time, he did have a single in and out cathete r to get a urine specimen. He did not have a Kolb catheter. He does have symptoms of prostatism wi th urgency, frequency, dysuria, but those have been ongoing all of his life and recently worsened sin ce he was in the hospital and discharged 05/04/2019. He was actually starting to improve. Home heal th physical therapy has been working with them. He was able to stand to have his help him stand and to do things. Yesterday, he slept for 3 hours, which was unusual for him. While he does take a nap in the middle of the day, usually it is not 3 hours long. There is no fever, no chills, no urge ncy, no frequency. No dysuria. Appetite was stable. Today, he had an abrupt change in his mental s tatus and he was confused, disoriented. He got up to go to the bathroom and had bloody urine. He was brought to the emergency room where he met sepsis criteria where pulse was 33, blood pressure 151/87 but dropped to 97/56. Lactic acid was 2.9. White cell count dropped to 3.1. HOSPITAL COURSE: He was felt to have sepsis from a urinary source putting together his history. In tial urinalysis had quite a few squamous cells. Nevertheless, it was submitted for culture. That cu lture ended up being negative except for polymicrobial growth. Blood cultures ended up growing Aeroc occus urinae. Sepsis criteria resolved with treatment of his infection with IV antibiotics and fluid resuscitation. Blood pressure rebounded to normal. White cell count rebounded back up to 18,000 an d then gradually started coming back down again. He was put on Flomax and Proscar. We hoped to avoi dayana scott Kolb. Dementia was evident, and he would get quite cranky and not want to work with [employer] or physical therapy to keep his strength. The pelvic fracture was uncomfortable, but not severely painful. He was working with physical therapy, out of ICU when he developed worsening cough 2 days before discharge. He was identified as having a worsening left basilar infiltrate and antibiotics we re adjusted for that. He was on ceftriaxone for IV coverage and azithromycin added for the pneumonia coverage. He was then changed to p.o. Levaquin for discharge to complete pneumonia treatment and p. o. azithromycin to complete pneumonia coverage. Advanced conversation discussion was held with the and the daughter. tends to mitigate the patient's complaint and is his biggest fan and cheerleader. She wants him to succeed, and has a vis ion of that success in her mind so firmly implanted that she does not seem to understand the reality of what is in front of her right now. Daughter is much more realistic about father's failing, and la ck of performance. Daughter is definitely pushing for transition to palliative care. Possibly hospi ce if he continues to deteriorate at the rate he is deteriorating. He did have an episode of new ons et atrial fibrillation with short duration on 05/19/2019, it resolved after amiodarone drip and he wa s sent home on amiodarone. He is discharged to a residential facility for rehabilitation. It is hoped that he will return t o home. They have long-term care insurance and they already have 2 care providers hired to help take care of him with the . PHYSICAL EXAMINATION: VITAL SIGNS: Temperature is 36.7, pulse is 76, blood pressure is 141/73, respirations 20, he is 92% on room air. GENERAL: He is a stocky, well-nourished, elderly gentleman who is 5 feet 7 inches tall and weighs 80 kg. Slightly nasal tone of voice. Mild rhinorrhea, but no coryza. Back of throat is negative. Elda tty anterior cervical adenopathy. No stiff neck. No bruits. LUNGS: Clear except for occasional rhonchi that clear with cough. No increased respiratory effort. No tachypnea. PMI is normally placed with a regular rate and rhythm. ABDOMEN: Soft, nontender without organomegaly. EXTREMITIES: Without edema. Daughter emphasizes that we are to treat her father with antibiotics, and judicious use of other thin gs such as blood products, but she does not want us to do pressors, CPR, intubation, and she really w ants to carefully consider any treatment plan we may have to offer down the road if it seems like it is going to be prolonging his life unnecessarily, but again does not seem to have the same thoug ht process and family may need to come to a conclusion. Greater than 30 minutes was spent in coordinating discharge. TD: 05/26/2019 14:39
== END 2019-05-25 14:24 | DRG 871 ==
LOC: EDUNIT# → ED 15:33 → ICU 16:25 → MS3 05-23 13:15
PROVIDERS: ADMIT Specialist; ATTEND Specialist
DX: A41.9 Sepsis, unspecified organism (principal); N30.01 Acute cystitis with hematuria; R09.02 Hypoxemia; A41.89 Other specified sepsis; J18.9 Pneumonia, unspecified organism; N39.0 Urinary tract infection, site not specified; I11.9 Hypertensive heart disease without heart failure; F03.90 Unspecified dementia, unspecified severity, without behavioral disturbance, psychotic disturbance, mood disturbance, and anxiety; N13.8 Other obstructive and reflux uropathy; Z79.82 Long term (current) use of aspirin; R31.0 Gross hematuria; J84.10 Pulmonary fibrosis, unspecified; I95.9 Hypotension, unspecified; I10 Essential (primary) hypertension; N40.1 Benign prostatic hyperplasia with lower urinary tract symptoms; R35.0 Frequency of micturition; R35.1 Nocturia; R39.15 Urgency of urination; N39.498 Other specified urinary incontinence; I48.91 Unspecified atrial fibrillation; M80.052D Age-related osteoporosis with current pathological fracture, left femur, subsequent encounter for fracture with routine healing; M62.81 Muscle weakness (generalized); I69.311 Memory deficit following cerebral infarction; I69.393 Ataxia following cerebral infarction; F01.50 Vascular dementia, unspecified severity, without behavioral disturbance, psychotic disturbance, mood disturbance, and anxiety; H40.9 Unspecified glaucoma; H54.8 Legal blindness, as defined in USA; H35.30 Unspecified macular degeneration; H91.90 Unspecified hearing loss, unspecified ear; E78.5 Hyperlipidemia, unspecified; G25.0 Essential tremor; M25.9 Joint disorder, unspecified; G47.33 Obstructive sleep apnea (adult) (pediatric); M25.472 Effusion, left ankle; T14.90XS Injury, unspecified, sequela; G89.29 Other chronic pain; Z66 Do not resuscitate; Z96.641 Presence of right artificial hip joint; Z79.899 Other long term (current) drug therapy; Z91.81 History of falling; Z79.02 Long term (current) use of antithrombotics/antiplatelets; Z79.1 Long term (current) use of non-steroidal anti-inflammatories (NSAID)
CPT/HCPCS: 36415; 71045; 80048; 80053; 81001; 81599; 82040; 82803; 83605; 83690; 83735; 84100; 84153; 84154; 84443; 84484; 85025; 87040; 87086; 87150; 93005; 96365; 96375; 97162; 97530; 99285; A6250; A9270; J0131; J0282; J7120; 81003

== ENCOUNTER 2019-06-08 19:35 | Outpatient (CLI) | payer MEDICARE, BC ==
[2019-06-08 21:38] LABS: CALCIUM 8.8 mg/dL (8.5-10.3); CREATININE 0.8 mg/dL (0.6-1.2)
== END 2019-06-08 23:59 | disposition home or self-care (01) ==
LOC: LAB.R 19:35
DX: A41.9 Sepsis, unspecified organism (principal); N40.1 Benign prostatic hyperplasia with lower urinary tract symptoms
CPT/HCPCS: 80048

== ENCOUNTER 2019-06-09 16:20 | Outpatient (CLI) | payer MEDICARE, BC ==
[2019-06-09 20:45] LABS: THYROID STIMULATING HORMONE 2.47 uIU/mL (0.34-5.60)
[2019-06-09 20:57] LABS: FOLATE 8.19 ng/mL (5.90 - >24.8)
== END 2019-06-09 23:59 | disposition home or self-care (01) ==
LOC: LAB.R 16:20
PROVIDERS: ATTEND Internal Medicine
DX: I50.20 Unspecified systolic (congestive) heart failure (principal); E03.9 Hypothyroidism, unspecified; D51.9 Vitamin B12 deficiency anemia, unspecified; D52.9 Folate deficiency anemia, unspecified; R06.02 Shortness of breath
CPT/HCPCS: 82607; 82746; 83880; 84443

== ENCOUNTER 2019-06-17 13:21 | Outpatient (CLI) | payer MEDICARE, BC | END 2019-06-17 13:22 | disposition critical access hospital (66) | LOC: EMS 13:21 | PROVIDERS: ATTEND Surgery | DX: R25.9 Unspecified abnormal involuntary movements (principal); R31.9 Hematuria, unspecified; R53.81 Other malaise | CPT/HCPCS: A0425; A0429 ==

== ENCOUNTER 2019-06-17 13:26 | Inpatient (IN) | payer MEDICARE, BC ==
--- NOTE | 2019-06-17 13:28 | ED Physician Documentation ---
History of Present Illness - Stated complaint Stated Complaint: UTI - History obtained from History obtained from: Patient, Family - History of Present Illness Timing: Prior to arrival - Additonal information Additional information: Patient is an 84-year-old male with history of urosepsis for which he was hospitalized recently presenting to the ED with his with concern for dysuria over the past 1 hour. also notes generalized tremulousness. denies fever, abdominal pain, nausea, vomiting, urinary changes otherwise except for hematuria, as well as any stool changes. No changes from baseline mentation. No chest pain, difficulty breathing, productive cough.No other improving or worsening factors noted. 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: None : Benign prostate hypertrophy, Nocturia, Frequency HEENT: Chronic vision loss, Glaucoma, Macular degeneration Psych: Other Musculoskeletal: Osteoarthritis, Osteoporosis, Chronic back pain, Other Derm: None - Past Surgical History Past Surgical History: Yes Ortho: Hip replacement - Present Medications Home Medications: Ambulatory Orders Medication Instructions Recorded Confirmed Amiodarone [Pacerone] 200 mg PO DAILY tablet 05/25/19 Aspirin/Dipyridamole [Aggrenox] 1 cap PO DAILY #0 05/25/19 05/19/19 Azithromycin 250 mg PO DAILY 5 Days #4 tab 05/25/19 Benzonatate [Tessalon] 100 mg PO TID PRN capsule 05/25/19 Cholecalciferol (Vitamin D3) 2,000 unit PO DAILY #0 05/25/19 05/19/19 [Vitamin D3] Finasteride [Proscar] 5 mg PO DAILY #1 tablet 05/25/19 Latanoprost 0.005% Ophth Drops 1 drops LEFTEYE QPM #0 05/25/19 05/19/19 [Xalatan Ophth Drops] Levofloxacin [Levaquin] 500 mg PO DAILY #4 tablet 05/25/19 Meloxicam 15 mg PO DAILY PRN #1 05/25/19 05/19/19 Memantine HCl [Namenda] 10 mg PO BID #0 05/25/19 05/19/19 Tamsulosin [Flomax] 0.4 mg PO DAILY capsule 05/25/19 Timolol 0.5% Ophth Drops [Timoptic 1 drops LEFTEYE BID #0 05/25/19 05/19/19 0.5% Ophth Drops] - Allergies Allergies/Adverse Reactions: Allergies Allergy/AdvReac Type Severity Reaction Status Date / Time No Known Drug Allergies Allergy Verified 06/17/19 13:42 - Social History Does the pt smoke?: No Smoking Status: Never smoker Does the pt drink ETOH?: Yes Does the pt have substance abuse?: No - Immunizations Immunizations are current?: No Immunizations: TDAP >10years/unknown - POLST Patient has POLST: No POLST Status: DNR PD ED PE NORMAL - Vitals Vital signs reviewed: Yes - General General: No acute distress, Well developed/nourished, Other (Tremulous) - HEENT HEENT: Atraumatic, Moist mucous membranes - Neck Neck: Supple, no meningeal sign - Cardiac Cardiac: No murmur. No: RRR (Tachycardic) - Respiratory Respiratory: No respiratory distress, Clear bilaterally - Abdomen Abdomen: Soft, Non tender, Non distended - Derm Derm: Normal color, Warm and dry, No rash - Extremities Extremities: No deformity, No tenderness to palpate - Neuro Neuro: No motor deficit, No sensory deficit (Baseline mental status according to , no gross motor or sensory deficits) Results - Vitals Vitals: Vital Signs - 24 hr 06/17/19 06/17/19 13:42 14:24 Temperature 38.3 C H Heart Rate 119 H 104 H Respiratory 26 H 24 Rate Blood Pressure 140/99 H 153/88 H O2 Saturation 96 91 L Oxygen O2 Source [Without Activity] Room air O2 Source Room air - Labs Labs: Laboratory Tests 06/17/19 06/17/19 06/17/19 13:40 14:05 14:05 WBC 7.8 RBC 4.56 L Hgb 15.2 Hct 44.4 MCV 97.4 H MCH 33.3 H MCHC 34.2 RDW 13.7 Plt Count 160 MPV 9.6 Neut # (Auto) 7.4 H Lymph # (Auto) 0.2 L Victoria # (Auto) 0.1 Eos # (Auto) 0.0 Baso # (Auto) 0.0 Absolute Nucleated RBC 0.00 Nucleated RBC % 0.0 Sodium 131 L Potassium 4.7 Chloride 94 L Carbon Dioxide 25 Anion Gap 12.0 BUN 22 H Creatinine 0.8 Estimated GFR (MDRD) 92 Glucose 124 H Lactic Acid Calcium 8.9 Total Bilirubin 1.2 H AST 19 ALT 13 Alkaline Phosphatase 141 H Total Protein 6.8 Albumin 3.7 Globulin 3.1 Albumin/Globulin Ratio 1.2 Lipase 31 Urine Color DARK YELLOW Urine Clarity CLOUDY Urine pH 7.0 Ur Specific [place] 1.010 Urine Protein TRACE Urine Glucose (UA) NEGATIVE Urine Ketones NEGATIVE Urine Occult Blood LARGE H Urine Nitrite NEGATIVE Urine Bilirubin NEGATIVE Urine Urobilinogen 0.2 (NORMAL) Ur Leukocyte Esterase LARGE H Urine RBC TNTC H Urine WBC 6-10 H Ur Squamous Epith Cells RARE Squamous Urine Bacteria Rare Ur Microscopic Review INDICATED Urine Culture Comments INDICATED 06/17/19 14:05 WBC RBC Hgb Hct MCV MCH MCHC RDW Plt Count MPV Neut # (Auto) Lymph # (Auto) Victoria # (Auto) Eos # (Auto) Baso # (Auto) Absolute Nucleated RBC Nucleated RBC % Sodium Potassium Chloride Carbon Dioxide Anion Gap BUN Creatinine Estimated GFR (MDRD) Glucose Lactic Acid 2.4 H Calcium Total Bilirubin AST ALT Alkaline Phosphatase Total Protein Albumin Globulin Albumin/Globulin Ratio Lipase Urine Color Urine Clarity Urine pH Ur Specific [place] Urine Protein Urine Glucose (UA) Urine Ketones Urine Occult Blood Urine Nitrite Urine Bilirubin Urine Urobilinogen Ur Leukocyte Esterase Urine RBC Urine WBC Ur Squamous Epith Cells Urine Bacteria Ur Microscopic Review Urine Culture Comments PD MEDICAL DECISION MAKING - ED course Complexity details: reviewed results, re-evaluated patient, considered differential, d/w patient, d/w family, d/w risk control consultant ED course: Patient presenting with 1 hour of urinary complaints, as well as tremulousness. is concerned that patient may be experiencing UTI or sepsis as the symptoms were similar to what he experienced last month when he was admitted for such. No other complaints. Remainder physical exam is rather benign. Certainly, no acute or surgical abdomen present. Patient is at his physical mental baseline per . Patient was febrile upon arrival and start of fluid resuscitation, as well as given Tylenol. Cultures and urine sample obtained. Urinalysis does appear to be source of infection and patient received Rocephin. No significant leukocytosis present on blood work, but elevated lactate. At this time, based on patient's vital signs, complaints, work-up, do have concern for urosepsis. Do feel most appropriate to admit patient and contacted hospitalist, who agreed to admission. Patient and updated and also amenable to this plan. - Sepsis Event Current Stage of Sepsis: Sepsis Possible source of Sepsis: Genitourinary Mental/Cognitive Status: Normal for patient Reason for not giving 30ml/kg crystalloid fluids: Bolus previously given Capillary refill: Less than 2 seconds Peripheral Pulse Strength: 3+ Normal Bedside ultrasound performed: No Departure - Departure Disposition: 66 [facility] DC/Xfer Clinical Impression: Sepsis Qualifiers: Sepsis type: sepsis due to unspecified organism Sepsis acute organ dysfunction status: unspecified Qualified Code(s): A41.9 - Sepsis, unspecified organism
[2019-06-17] MEDS ORDERED: SODIUM CHLORIDE 0.9% 1,000 ML IV ONE ×2 (13:35→13:46)
[2019-06-17] MEDS ORDERED: ACETAMINOPHEN 1,000 MG/100 ML 100 ML IV STA (13:46)
[2019-06-17 14:04] LABS: BILIRUBIN,URINE NEGATIVE (NEGATIVE); GLUCOSE, URINE (UA) NEGATIVE (NEGATIVE); KETONES,URINE (UA) NEGATIVE (NEGATIVE); LEUKOCYTE ESTERASE, URINE LARGE (NEGATIVE); NITRITE,URINE NEGATIVE (NEGATIVE); OCCULT BLOOD,URINE LARGE (NEGATIVE); PROTEIN,URINE TRACE mg/dL (NEGATIVE); UROBILINOGEN,URINE 0.2 (NORMAL) E.U./dL (NORMAL)
[2019-06-17 14:14] LABS: BASOPHILS % (AUTO) 0.1 %; EOSINOPHILS % (AUTO) 0.5 %; HGB - HEMOGLOBIN 15.2 g/dL (14.0-18.0); LYMPHOCYTES # (AUTO) 0.2 10^3/uL (1.5-3.5); LYMPHOCYTES % (AUTO) 2.9 %; MEAN CORPUSCULAR HEMOGLOBIN 33.3 pg (27.0-31.0); MEAN CORPUSCULAR HGB CONC 34.2 g/dL (32.0-36.0); MEAN CORPUSCULAR VOLUME 97.4 fL (80.0-94.0); MEAN PLATELET VOLUME 9.6 fL (7.4-11.4); MONOCYTES # (AUTO) 0.1 10^3/uL (0.0-1.0); MONOCYTES % (AUTO) 1.4 %; NEUTROPHILS # (AUTO) 7.4 10^3/uL (1.5-6.6); NEUTROPHILS % (AUTO) 94.8 %; PLT - PLATELET COUNT 160 10^3/uL (130-450); RED BLOOD COUNT 4.56 10^6/uL (4.70-6.10); RED CELL DISTRIBUTION WIDTH 13.7 % (12.0-15.0); WHITE BLOOD COUNT 7.8 x10^3/uL (4.8-10.8)
[2019-06-17 14:20] LABS: BACTERIA,URINE Rare /HPF (None Seen); CLARITY,URINE CLOUDY (CLEAR); RBC,URINE TNTC /HPF (0-5); SQUAMOUS EPITHELIAL CELL,UR RARE Squamous (<= Few)
[2019-06-17 14:27] LABS: ALBUMIN 3.7 g/dL (3.2-5.5); ALBUMIN/GLOBULIN RATIO 1.2 (1.0-2.2); BILIRUBIN,TOTAL 1.2 mg/dL (0.2-1.0); CALCIUM 8.9 mg/dL (8.5-10.3); CREATININE 0.8 mg/dL (0.6-1.2); TOTAL PROTEIN 6.8 g/dL (6.7-8.2)
[2019-06-17] MEDS ORDERED: cefTRIAXone 2 GM in SODIUM CHLORIDE 0.9% MINIBAG 100 ML IV STA (14:34)
[2019-06-17] MEDS ORDERED: oxyCODONE 5 MG TABLET PO PRN (15:04)
[2019-06-17] MEDS ORDERED: ONDANSETRON 4 MG/2 ML VIAL IVP PRN (15:04)
[2019-06-17] MEDS ORDERED: ONDANSETRON ODT 4 MG TABLET TL PRN (15:04)
[2019-06-17] MEDS ORDERED: ACETAMINOPHEN 325 MG TABLET PO PRN (15:47)
[2019-06-17] MEDS ORDERED: SODIUM CHLORIDE 0.9% 1,000 ML IV SCH ×2 (16:00→22:00)
[2019-06-17] MEDS ORDERED: LACTATED RINGERS 1,000 ML IV ONE (16:28)
[2019-06-17] MEDS: SODIUM CHLORIDE FLUSH 0.9% 10 ML SYRINGE IVP SCH ×2 (16:32→19:30)
[2019-06-17] MEDS ORDERED: SODIUM CHLORIDE 0.9% 500 ML IV ONE (17:50)
--- NOTE | 2019-06-17 17:52 | HISTORY & PHYSICAL EXAMINATION ---
Chief Complaint - Chief Complaint Chief Complaint: dysuria and hematuria History of Present Illness - History of Present Illness HPI Comment/Other: Mr. Farmer is an 84-year old male with a past medical history significant for recurrent UTI with recent hospitalization for urosepsis, hypertension, proximal muscle weakness, glaucoma, macular degeneration, legal blindness, essential tremor, CVA, dementia, decubitis ulcer, left hip pain, osteoporosis, BPH, and frequent falls, and tremors, who present ER complain of dysuria and hematuria. Pt's is not at hospital now. Upon examination, Pt is alert and oriented to person, easy to fall into sleep. Pt states he has been urinating more often and there is blood at his urine, and he denies fever in the home. pt was febrile at hospital at temperature 38.7, BP at 88/54, HR 98, RR 26, 94% sats on 4 liter of O2. UA indicate pyuria. pt also has elevated lactic acid at 2.4. WBC is 7.8. Pt denies chest pain, cough, abdominal pain, nausea, vomiting. pt is admitted of urosepsis. History - Past Medical History Cardiovascular: reports: Hypertension, Atrial fibrillation Respiratory: reports: None Neuro: reports: Dementia, CVA, Tremors Endocrine/Autoimmune: reports: None GI: reports: None PRESS READER: reports: None : reports: Benign prostate hypertrophy, Nocturia, Frequency HEENT: reports: Chronic vision loss, Glaucoma, Macular degeneration Psych: reports: None Musculoskeletal: reports: Osteoarthritis, Osteoporosis, Scoliosis Derm: reports: None MRSA Hx?: No - Past Surgical History General: reports: Other Ortho: reports: Hip replacement HEENT: reports: Cataracts - Family & Social History Family History: Mother: , Diabetes, Type 2, Father: , COPD/Emphysema, Sister: , Alzheimer's Disease, Diabetes, Type 2, Brother: , Cancer Family History Comment/Other: Father: emphysema from WWI. Mother: DM. Brother: pancreatic cancer. Sister: DM, dementia Social History Notes: The patient lives at home with is , independently. They have 4 grown children. For the past 4 [place] they have been traveling from [place] to [facility] and have bought a vacation home on the [place]. The patient states that he sleeps alot (all night and naps throughout the day). The patient has had increasing difficulty with ambulation at home and uses a cane, or a 4-wheeled walker. The patient has never smoked, occasional alcohol use, no illicit drug use. He wishes to be a DNR. - Substance History Use: Uses substance without health or social issues: NONE - POLST Patient has POLST: No POLST Status: DNR Meds/Allgy - Home Medications Home Medications: Ambulatory Orders Medication Instructions Recorded Confirmed Aspirin/Dipyridamole [Aggrenox] 1 cap PO DAILY #0 05/25/19 06/18/19 Cholecalciferol (Vitamin D3) 2,000 unit PO DAILY #0 05/25/19 06/18/19 [Vitamin D3] Finasteride [Proscar] 5 mg PO DAILY #1 tablet 05/25/19 06/18/19 Latanoprost 0.005% Ophth Drops 1 drops LEFTEYE QPM #0 05/25/19 06/18/19 [Xalatan Ophth Drops] Memantine HCl [Namenda] 10 mg PO BID #0 05/25/19 06/18/19 Tamsulosin [Flomax] 0.4 mg PO DAILY capsule 05/25/19 06/18/19 Timolol 0.5% Ophth Drops [Timoptic 1 drops LEFTEYE DAILY 06/18/19 06/18/19 0.5% Ophth Drops] - Allergies Allergies/Adverse Reactions: Allergies Allergy/AdvReac Type Severity Reaction Status Date / Time No Known Drug Allergies Allergy Verified 06/17/19 13:42 Review of Systems - Constitutional Constitutional: reports: Fatigue. denies: Fever, Chills, Malaise, Weakness, Poor appetite, Diaphoresis, Night sweats - Eyes Eyes: denies: Pain, Irritation, Amaurosis, Blurred vision, Spots in vision, Field loss, Vision loss, Dipolpia - Ears, Nose & Throat Ears, Nose & Throat: denies: Ear pain, Hearing loss, Hearing aids, Tinnitus, Vertigo, Nasal pain, Nasal discharge, Nosebleeds, Nasal obstruction, Nasal congestion, Dentures, Sore throat, Hoarseness - Cardiovascular Cariovascular: denies: Irregular heart rate, Palpitations, Chest pain, Edema, Lightheadedness, Syncope, Exertional dyspnea, Decr. exercise tolerance - Respiratory Respiratory: denies: Cough, Sputum production, Wheezing, Snoring, Hemoptysis, Orthopnea, SOB at rest, SOB with exertion - Gastrointestinal Gastrointestinal: denies: Abdominal pain, Abdominal distention, Constipation, Diarrhea, Change in bowel habits, Rectal bleeding, Black stools, Bloody stools, Nausea, Vomiting, Bile emesis, Adán blood emesis, Coffee grounds emesis - Genitourinary Genitourinary: reports: Dysuria, Frequency, Hematuria. denies: Urgency, Incontinence, Flank pain, Nocturia, Urethral discharge - Musculoskeletal Musculoskeletal: denies: Muscle pain, Back pain, Muscle aches, Stiffness, Limited range of motion, Muscle weakness, Gout, Joint pain - Integumentary Integumentary: denies: Rash, Pruritis, Lesions, Dryness - Neurological Neurological: reports: General weakness. denies: Focal weakness, Headache, Dizziness, Numbness, Memory problems, Pre-existing deficit, Abnormal gait, Seiz ures, Incoordination - Psychiatric Psychiatric: denies: Depression, Anxiety, Suicidal, Delusions, Hallucinations, Homicidal - Endocrine Endocrine: denies: Polyuria, Polydypsia, Polyphagia - Hematologic/Lymphatic Hematologic/Lymphatic: reports: Recurrent infections. denies: Anemia, Bruising, Petechiae, Blood clots, Lymphadenopathy, Bleeding tendencies Exam - Vital Signs Reviewed Vital Signs: Yes Vital Signs: Vital Signs x48h Temp Pulse Pulse Resp BP BP Pulse Ox 06/17/19 17:19 37.9 C H 92 99/57 L 06/17/19 17:17 94 92/53 L 06/17/19 17:13 96 89/52 L 06/17/19 16:50 95 81/48 L 06/17/19 16:30 38.7 C H 99 26 H 86/52 L 94 06/17/19 16:21 100.4 C H 06/17/19 16:00 38.7 C H 98 26 H 88/54 L 94 06/17/19 15:39 100 19 100/59 L 92 06/17/19 14:24 104 H 24 153/88 H 91 L 06/17/19 13:42 38.3 C H 119 H 26 H 140/99 H 96 - Physical Exam General Appearance: positive: No acute distress, Alert. negative: Lethargic Eyes Bilateral: positive: Normal inspection, PERRL, No lid inflammation, Conjunctivae nml ENT: positive: ENT inspection nml, Pharynx nml, No signs of dehydration. n egative: Purulent nasal drainage, Pharyngeal erythema, Oral lesions Neck: positive: Nml inspection, Thyroid nml, No JVD, Trachea midline. negative: Thyromegaly, Lymphadenopathy (R), Lymphadenopathy (L), Stiff neck, Swelling/bruising, Tracheal deviation Respiratory: positive: Chest non-tender, No respiratory distress, Breath sounds nml. negative: Wheezes, Rales, Rhonchi Cardiovascular: positive: Regular rate & rhythm, No murmur, No gallop. negative: Irregularly irregular, Extrasystoles, Tachycardia, Bradycardia, JVD p resent, Systolic murmur, Diastolic murmur Peripheral Pulses: positive: 2+ Abdomen: positive: Non-tender, No organomegaly, Nml bowel sounds, No distention. negative: Tenderness, Guarding, Rebound Back: positive: Nml inspection. negative: CVA tenderness (R), CVA tenderness (L) Skin: positive: Color nml, No rash, Warm, Dry. negative: Cyanosis, Diaphoresis, Pallor Extremities: positive: Non-tender, Nml appearance. negative: Calf tenderness, Joint swelling, Sarah's sign/cords Neurologic/Psychiatric: positive: Sensation nml. negative: Weakness, Sensory loss, Facial droop, Slurred/abnml speech, Depressed mood/affect Sepsis Event Note (H) - Evaluation Possible source of Sepsis: positive: Genitourinary - Sepsis Criteria Sepsis Criteria: Recorded Temperature greater than 38.3C or Less than 36C, Recorded Heart Rate greater than 90 bpm, Recorded Respiratory Rate greater than 20, Respiratory: Increasing oxygen requirements, WBC count greater than 12,000 or less than 4000, SBP less than 90 mmHg Conclusion/Plan - Problem List (1) Sepsis Conclusion/Plan: recurrent Urosepsis with septic shock, low BP, fever, increase of HR, elevated lactic acid IVF of NS with bolus of NS for hydration and tissue perfusion treat with Rocephin tele and vital monitor continue lab and lactic acid monitor Qualifiers: Sepsis type: sepsis due to unspecified organism Sepsis acute organ dysfunction status: unspecified Qualified Code(s): A41.9 - Sepsis, unspecified organism (2) Recurrent UTI Conclusion/Plan: pt recently had three times of recurrent UTI. pt did not have Kolb. It is Unknown the etiology to cause pt recurrent UTI treat with Rocephin followup UA culture educate pt prevention of recurrent UTI, advise pt followup urologist (3) Hypotension Conclusion/Plan: pt's SBP is down to 88, it is likely caused by septic shock. IVF of NS with bolus and precaution of Fluid overload hold home HTN meds tele and vital monitor (4) Paroxysmal atrial fibrillation Conclusion/Plan: pt has hx of paroxysmal Afib, today EKG reveals sinus atrial tachycardia (6) History of CVA (cerebrovascular accident) Conclusion/Plan: stable, pt denies acute focal neurological deficits, reconcile home meds (7) Tremor Conclusion/Plan: chronic medical condition. stable, will continue support and reconcile home meds (8) BPH (benign prostatic hyperplasia) Conclusion/Plan: stable, will reconcile home meds Flomax and Proscar (9) Glaucoma Conclusion/Plan: stable, denies acute eye pain or vision change. reconcile home meds (10) Osteoarthritis Conclusion/Plan: stable, reconcile of home meds - Lab Results Fish Bones: 06/18/19 09:14 06/18/19 05:15 Core Measures - Anticipated LOS I expect patient to be DC'd or transferred within 96 hours.: Yes - DVT/VTE - Prophylaxis VTE/DVT Device ordered at admit?: Yes VTE/DVT Prophylaxis med ordered at admit?: Yes
[2019-06-17] MEDS: SODIUM CHLORIDE 0.9% 1,000 ML IV ONE ×4 (18:30→20:41)
[2019-06-17 18:56] LABS: TROPONIN I 0.99 ng/mL (<0.49)
[2019-06-17] MEDS ORDERED: LIDOCAINE 2% URO-JET 5 ML SYRINGE UR ONE (18:59)
[2019-06-17] MEDS ORDERED: HEPARIN 25000UNITS/500ML (D5W) 25,000 UNIT/500 ML BAG IV STA (19:34)
[2019-06-17 19:43] LABS: HGB - HEMOGLOBIN 12.8 g/dL (14.0-18.0); MEAN CORPUSCULAR HEMOGLOBIN 33.4 pg (27.0-31.0); MEAN CORPUSCULAR HGB CONC 34.2 g/dL (32.0-36.0); MEAN CORPUSCULAR VOLUME 97.7 fL (80.0-94.0); MEAN PLATELET VOLUME 9.7 fL (7.4-11.4); RED BLOOD COUNT 3.83 10^6/uL (4.70-6.10); RED CELL DISTRIBUTION WIDTH 13.7 % (12.0-15.0)
[2019-06-17] MEDS ORDERED: ASPIRIN 325 MG TABLET PO SCH (20:00)
[2019-06-17] MEDS ORDERED: ASPIRIN 300 MG SUPP PR STA (20:05)
--- NOTE | 2019-06-17 21:38 | XRAY Report ---
Reason: hypoxia Procedure Date: 06/17/2019 Accession Number: [id number] / [id number] Procedure: XR - Chest 1 View X-Ray CPT Code: 95423 FULL RESULT: EXAM: CHEST RADIOGRAPHY EXAM DATE: 06/17/2019 08:12 PM. CLINICAL HISTORY: Hypoxia. COMPARISON: CHEST 1 VIEW 05/23/2019 9:05 AM. TECHNIQUE: 1 view. FINDINGS: Lungs/Pleura: Interval accentuation of moderate pulmonary edema. No focal opacities evident. No pleural effusion. No pneumothorax. Mediastinum: There is stable mild cardiomegaly Other: None. IMPRESSION: Interval accentuation of moderate pulmonary edema. Stable mild cardiomegaly. Small bilateral pleural effusions. No pneumothorax. RAD[facility]
[2019-06-17] MEDS ORDERED: PIPERACILLIN/TAZOBACTAM 3.375 GM in SODIUM CHLORIDE 0.9% MINIBAG 100 ML IV SCH (22:00)
[2019-06-17] MEDS ORDERED: VANCOMYCIN PER PHARMACY 100 GM in SODIUM CHLORIDE 0.9% 250 ML IV SCH (22:00)
[2019-06-17] MEDS ORDERED: SODIUM CHLORIDE FLUSH 0.9% 10 ML SYRINGE ONE (22:24)
[2019-06-17] MEDS ORDERED: VANCOMYCIN INJ 0.75 GM in SODIUM CHLORIDE 0.9% 250 ML IV SCH (23:00)
--- NOTE | 2019-06-17 23:13 | Ultrasound Report ---
Reason: hydronephrosis? Procedure Date: 06/17/2019 Accession Number: [id number] / [id number] Procedure: US - Retroperitoneal CPT Code: FULL RESULT: EXAM: RENAL ULTRASOUND EXAM DATE: 06/17/2019 07:55 PM. CLINICAL HISTORY: Hydronephrosis?. COMPARISON: None. TECHNIQUE: Real-time scanning was performed with static images obtained. FINDINGS: Right Kidney: 11.4 x 6.1 x 6.3 cm. Normal echotexture with no stones, contour-deforming masses, or hydronephrosis. There is a cyst along the superior aspect of the right kidney measuring 1.2 x 0.9 cm. There is also an echogenic focus near the upper pole of the right kidney measuring 6 mm compatible with a nonobstructing calculus. Left Kidney: 10.0 x 6.0 x 4.4 cm. Normal echotexture with no stones, contour-deforming masses, or hydronephrosis. There are a few left-sided renal cysts the largest measures 14.6 x 10.4 mm. Bladder: Kolb balloon catheter is in the bladder. Other: None. IMPRESSION: 1. Bilateral renal cysts. 2. Nonobstructing calculus in the upper pole of the left kidney. 3. No evidence for hydronephrosis. RADIA
[2019-06-17] MEDS ORDERED: VANCOMYCIN PER PHARMACY 100 GM in SODIUM CHLORIDE 0.9% 250 ML IV ONE (23:28)
[2019-06-18] MEDS: PIPERACILLIN/TAZOBACTAM 3.375 GM in SODIUM CHLORIDE 0.9% MINIBAG 100 ML IV SCH ×4 (00:49→21:10)
[2019-06-18] MEDS: SODIUM CHLORIDE FLUSH 0.9% 10 ML SYRINGE IVP SCH ×3 (00:49→17:16)
[2019-06-18 05:41] LABS: BASOPHILS # (AUTO) 0.1 10^3/uL (0.0-0.1); BASOPHILS % (AUTO) 0.4 %; EOSINOPHILS % (AUTO) 0.2 %; LYMPHOCYTES # (AUTO) 0.7 10^3/uL (1.5-3.5); MEAN CORPUSCULAR HEMOGLOBIN 33.5 pg (27.0-31.0); MEAN CORPUSCULAR VOLUME 98.5 fL (80.0-94.0); MEAN PLATELET VOLUME 10.2 fL (7.4-11.4); MONOCYTES # (AUTO) 1.2 10^3/uL (0.0-1.0); MONOCYTES % (AUTO) 7.2 %; NEUTROPHILS # (AUTO) 14.8 10^3/uL (1.5-6.6); NEUTROPHILS % (AUTO) 87.3 %; PLT - PLATELET COUNT 133 10^3/uL (130-450); RED BLOOD COUNT 3.88 10^6/uL (4.70-6.10); WHITE BLOOD COUNT 16.9 x10^3/uL (4.8-10.8)
[2019-06-18 05:45] LABS: CREATININE 0.6 mg/dL (0.6-1.2)
[2019-06-18] MEDS ORDERED: cefTRIAXone 2 GM in SODIUM CHLORIDE 0.9% MINIBAG 100 ML IV SCH (09:00)
[2019-06-18] MEDS ORDERED: ENOXAPARIN 40 MG/0.4 ML SYRINGE SUBQ SCH (09:00)
[2019-06-18] MEDS ORDERED: cefTRIAXone 1 GM in SODIUM CHLORIDE 0.9% MINIBAG 100 ML IV SCH (09:00)
[2019-06-18] MEDS: POLYETHYLENE GLYCOL 3350 17 GM PACKET PO SCH (09:13)
[2019-06-18 09:26] LABS: HGB - HEMOGLOBIN 12.6 g/dL (14.0-18.0); MEAN CORPUSCULAR HEMOGLOBIN 33.8 pg (27.0-31.0); MEAN CORPUSCULAR HGB CONC 33.8 g/dL (32.0-36.0); MEAN PLATELET VOLUME 10.1 fL (7.4-11.4); RED BLOOD COUNT 3.73 10^6/uL (4.70-6.10); WHITE BLOOD COUNT 14.5 x10^3/uL (4.8-10.8)
[2019-06-18] MEDS ORDERED: ZINC OXIDE 20% OINT 28.35 GM TUBE TOP PRN (11:30)
[2019-06-18] MEDS: ASPIRIN 325 MG TABLET PO SCH (11:47)
[2019-06-18] MEDS: TAMSULOSIN 0.4 MG CAPSULE PO SCH (12:22)
[2019-06-18] MEDS: SODIUM CHLORIDE FLUSH 0.9% 10 ML SYRINGE IVP PRN (14:03)
--- NOTE | 2019-06-18 14:36 | CONSULTATION NOTE ---
Palliative Care Consultation - Referral Referring Provider: Jaquan CALVIN Time of Visit: [id number]; [id number] Referral setting: Hospitalized patient Referral Reason: Goals of Care/urosepsis - Information Sources Records reviewed: RN notes reviewed, Previous records reviewed History/Review of Systems obtained from: Patient Exam limitations: Clinical condition (patient with mild dementia;) - History of Present Illness Brief History of Present Illness: This is an 84-year-old gentleman who sustained a pelvic fracture and was hospitalized 05/02 to 05/04. Unfortunately this began a series of unfortunate events, including hospitalization 05/19 to 05/25 with Sepsis related to urinary tract infection, pneumonia, new onset atrial fibrillation, and continued difficulties with BPH and LUTS. Patient was discharged to [facility] because of his deconditioning, had made improvements and able to ambulate 10 to 20 feet, independent in his transfers, but still needing significant amount of support. On discharge they had chrome plater helper from "[facility]" for am and pm caregiving shift, and had follow-up from [facility]. Patient had been doing fairly well, still unable to navigate steps, but was making slow progress. was doing better with increased paid caregiving support, unfortunately patient presented with fever and chills on 06/17, and had a severe hypotensive episode and was admitted with recurrent sepsis. Patient did do well overnight with fluid resuscitation and antibiotics, and today though fatigued is able to participate in conversation, and ambulate short distances. 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 He does have some insight into his decline, his of 55 years daily is a strong advocate and caregiver, they are currently living in [place] near his daughter and son-in-law. Patient also presented with elevated troponins, due to ischemic demand and sepsis. Patient remains quite frail, at high risk for further decline, but hopeful for improvement in functional status and quality of life. Palliative care is asked to consult regarding goals of care. Medical/Surgical History - Past Medical History Cardiovascular: reports: Hypertension, Atrial fibrillation Respiratory: reports: None Neuro: Dementia, CVA, Tremors Endocrine/Autoimmune: reports: None GI: reports: None : reports: Benign prostate hypertrophy, Nocturia, Frequency HEENT: reports: Chronic vision loss, Glaucoma, Macular degeneration Psych: reports: None Musculoskeletal: reports: Osteoarthritis, Osteoporosis, Scoliosis, Other (hx of leg fractures 2007) Derm: reports: Other (right buddhist skin lesion) MRSA Hx?: No - Past Surgical History General: reports: Other Ortho: reports: Hip replacement HEENT: reports: Cataracts - Substance History Use: Uses substance without health or social issues: NONE Social History - Living Situation Living arrangement: At home Living Situation: With spouse/s.o. Support System: Patient has had progressive blindness, with increasing dependence on his care needs. Patient had been coming to [facility] on a regular basis during the [place], recently bought a house in her living in [place]. They also is still continued to commute back and forth to [place], where who they live a mile from their son and family. The plan is to return in August. They have a very supportive family, but is getting more isolated with patient's increased care needs. Patient does have insight into this, and feels badly for being a burden. They do have a long-term care insurance, which they have initiated Family History - Family History Family History: Mother: (brother with pancreatic CA/sister dementia), Father: , Sister: , Brother: Medications/Allergies - Medications Active Medication List: Active Medications Acetaminophen (Tylenol) 650 mg PO Q4HR PRN PRN Reason: Pain 1 to 4 Aspirin (Tina) 325 mg PO DAILYWM [facility] Last Admin: 06/18/19 11:47 Dose: 325 mg Enoxaparin Sodium (Lovenox) 40 mg SUBQ DAILY [facility] Last Admin: 06/18/19 09:12 Dose: 40 mg Finasteride (Proscar) 5 mg PO DAILY [facility] Piperacillin Sod/Tazobactam (Sod 3.375 gm/ Sodium Chloride) 100 mls @ 25 mls/hr IV Q8H [facility] Last Admin: 06/18/19 14:03 Dose: 25 mls/hr Latanoprost (Xalatan Ophth Drops) 1 drops LEFTEYE QPM [facility] Multi-Ingredient Ointment (Zinc Oxide) 1 applic TOP PRN PRN PRN Reason: Skin Care Ondansetron HCl (Zofran Inj) 4 mg IVP Q6HR PRN PRN Reason: Nausea / Vomiting Ondansetron HCl (Zofran Odt) 4 mg TL Q6HR PRN PRN Reason: Nausea / Vomiting Oxycodone HCl (Roxicodone) 5 mg PO Q4HR PRN PRN Reason: Pain 5 to 7 Polyethylene Glycol (Miralax) 17 gm PO DAILY [facility] Last Admin: 06/18/19 09:13 Dose: Not Given Sodium Chloride (Normal Saline Flush 0.9%) 10 ml IVP PRN PRN PRN Reason: NEEDED PER PROVIDER ORDERS Last Admin: 06/18/19 14:03 Dose: 10 ml Sodium Chloride (Normal Saline Flush 0.9%) 10 ml IVP 0100,0900,1700 [facility] Last Admin: 06/18/19 09:13 Dose: Not Given Tamsulosin HCl (Flomax) 0.4 mg PO DAILY [facility] Last Admin: 06/18/19 12:22 Dose: 0.4 mg Timolol Maleate (Timoptic 0.5% Ophth Drops) 1 drops LEFTEYE DAILY [facility] Timolol 0.5% Ophth Drops [Timoptic 0.5% Ophth Drops] 1 drops LEFTEYE DAILY 06/18/19 - Allergies Allergies/Adverse Reactions: Allergies Allergy/AdvReac Type Severity Reaction Status Date / Time No Known Drug Allergies Allergy Verified 06/17/19 13:42 Review of Systems - Constitutional Constitutional: reports: Fever (no fever/chills today), Weakness - Eyes Eyes: reports: Vision loss (patient reports can see light/dark) - Ears, Nose & Throat Ears, Nose & Throat: reports: Hearing loss (mild) - Cardiovascular Cardiovascular: reports: Exertional dyspnea - Respiratory Respiratory: denies: Cough - Gastrointestinal Gastrointestinal: reports: Abdominal distention, Good appetite. denies: Nausea - Genitourinary Genitourinary: reports: Frequency, Urgency. denies: Dysuria - Musculoskeletal Musculoskeletal: reports: Stiffness, Muscle weakness, Joint pain (with walking per report) - Integumentary Integumentary: reports: Dryness - Neurological Neurological: reports: General weakness, Memory problems, Slurred speech, Other (tremors) - Psychiatric Psychiatric: denies: Depression, Anxiety - Hematologic/Lymphatic Hematologic/Lymphatic: reports: Bruising (UE), Recurrent infections - All Other Systems All Other Systems: reports: Other (limited ROS) Physical Exam - Vital Signs Vital Signs: Vital Signs x48h Temp Pulse Resp BP Pulse Ox 06/18/19 14:21 36.5 C 60 18 90/55 L 95 06/18/19 08:00 36.5 C 71 18 113/68 99 - Physical Exam General Appearance: positive: No acute distress, Alert. negative: Anxious, Lethargic Eyes Bilateral: positive: Other (keeps eyes closed with most of conversation) ENT: positive: No signs of dehydration Neck: positive: No JVD, Trachea midline Cardiovascular: positive: Regular rate & rhythm Respiratory: positive: Diminished in bases, Wheezes (exp wheeze LLL) Abdomen: positive: Non-tender, Nml bowel sounds, Distended, Obese Skin: positive: Pallor, Dryness, Bruising Extremities: positive: No pedal edema Neurologic/Psychiatric: positive: Disoriented to time, Weakness, Slurred/abnml speech Palliative Care - POLST Patient has POLST: Yes POLST Status: DNR, Comfort Measures Pain: No pain Tiredness/Fatigue: Moderate (4-6) Drowsiness/Sedation: Mild (1-3) Nausea: None Depression: None Anxiety: None Dyspnea: Mild (1-3) (patient does not perceive as distress) Anorexia: None Sleep: Sleeps well Constipation: No Feelings of wellbeing/Perceived Quality of Life: Good, Acceptable, Worsening Performance Status: and patient report prior to patient's fall, they have been managing independently. Though he was needing increased help, sleeping more, and was getting weaker. Since the fall this is been exacerbated, but did make some improvement in the usp, was able to ambulate short distances, does not able to manage steps. They do have a transport chair at home, was able to do transfers, managing his frequency and urgency has been challenging. - Palliative Care Discussion: I met with patient by himself originally. When asked patient's understanding of his current situation, he reports "I do not feel like I am doing very well". He does understand this is his third hospitalization, when asked what he worries about his response was "at this point in life he do not worry much anymore". Patient is Hoahaoism, he does have a medallion on, reports it is his ortiz ticket to [facility]. He reports he is not afraid of dying, and says "not afraid of seeing the boss". If it happens it happens, though is not real specific how he would like this transition to play out. He does admit it is been difficult to be dependent, he is quite quiet pragmatic, and does understand that he is getting older and does perceive that his time is short. Family meeting, this is with his Susan, his daughter Марина. Goal was to establish goals of care. Jaquanhilda CALVIN, joined us with review of his medical situation. Both Susan and his daughter are aware of patient's frailty, daughter sees her role as being supportive of her mother and helping with interpreting the medical system as she is a nurse. is hoping for the best, she reports she is "not in denial" as she was not have been surprised if things have continued to worsen last night. Discussion ensued regarding the trajectory of patients with falls, recurrent hospitalizations, and choices weighing benefits and burdens moving forward. We did revisit the POLST. Goals agreed upon were to focus on comfort and quality of life, avoid hospitalization treat at this point in time still reversible conditions and the end of life a comfortable respectful . DNA R/DNI with comfort focused treatment. Though she would at this point continue to treat infections and use antibiotics, remains somewhat ambivalent given patient's sudden change in status. We discussed weighing benefits and burdens of decisions as they come up. She is aware patient has the potential for continued decline, but is hopeful will stabilize. Results - Lab Results Lab results reviewed: Yes Fish Bones: 06/18/19 09:14 06/18/19 05:15 Lab and Imaging Results: Lab Results x24hrs 06/18/19 06/18/19 06/18/19 Range/Units 09:56 09:14 05:15 WBC 14.5 H (4.8-10.8) x10^3/uL RBC 3.73 L (4.70-6.10) 10^6/uL Hgb 12.6 L (14.0-18.0) g/dL Hct 37.3 L (42.0-52.0) % MCV 100.0 H (80.0-94.0) fL MCH 33.8 H (27.0-31.0) pg MCHC 33.8 (32.0-36.0) g/dL RDW 14.0 (12.0-15.0) % Plt Count 120 L (130-450) 10^3/uL MPV 10.1 (7.4-11.4) fL Neut # (Auto) (1.5-6.6) 10^3/uL Lymph # (Auto) (1.5-3.5) 10^3/uL Charlotte # (Auto) (0.0-1.0) 10^3/uL Eos # (Auto) (0.0-0.7) 10^3/uL Baso # (Auto) (0.0-0.1) 10^3/uL Absolute Nucleated RBC x10^3/uL Nucleated RBC % /100WBC Anti-Xa Level ( - 0.7) U/mL Sodium 137 (135-145) mmol/L Potassium 4.0 (3.5-5.0) mmol/L Chloride 106 (101-111) mmol/L Carbon Dioxide 21 (21-32) mmol/L Anion Gap 10.0 (6-13) BUN 20 (6-20) mg/dL Creatinine 0.6 (0.6-1.2) mg/dL Estimated GFR (MDRD) 128 (>89) Glucose 112 H (70-100) mg/dL Lactic Acid (0.5-2.2) mmol/L Calcium 8.0 L (8.5-10.3) mg/dL Troponin I (<0.49) ng/mL Troponin I High Sens 681.8 H* (2.3-19.7) pg/mL 06/18/19 06/18/19 06/17/19 Range/Units 05:15 04:25 23:07 WBC 16.9 H (4.8-10.8) x10^3/uL RBC 3.88 L (4.70-6.10) 10^6/uL Hgb 13.0 L (14.0-18.0) g/dL Hct 38.2 L (42.0-52.0) % MCV 98.5 H (80.0-94.0) fL MCH 33.5 H (27.0-31.0) pg MCHC 34.0 (32.0-36.0) g/dL RDW 14.0 (12.0-15.0) % Plt Count 133 (130-450) 10^3/uL MPV 10.2 (7.4-11.4) fL Neut # (Auto) 14.8 H (1.5-6.6) 10^3/uL Lymph # (Auto) 0.7 L (1.5-3.5) 10^3/uL Charlotte # (Auto) 1.2 H (0.0-1.0) 10^3/uL Eos # (Auto) 0.0 (0.0-0.7) 10^3/uL Baso # (Auto) 0.1 (0.0-0.1) 10^3/uL Absolute Nucleated RBC 0.00 x10^3/uL Nucleated RBC % 0.0 /100WBC Anti-Xa Level ( - 0.7) U/mL Sodium (135-145) mmol/L Potassium (3.5-5.0) mmol/L Chloride (101-111) mmol/L Carbon Dioxide (21-32) mmol/L Anion Gap (6-13) BUN (6-20) mg/dL Creatinine (0.6-1.2) mg/dL Estimated GFR (MDRD) (>89) Glucose (70-100) mg/dL Lactic Acid (0.5-2.2) mmol/L Calcium (8.5-10.3) mg/dL Troponin I (<0.49) ng/mL Troponin I High Sens 907.9 H* 1013.4 H* (2.3-19.7) pg/mL 06/17/19 06/17/19 06/17/19 Range/Units 23:07 20:02 19:37 WBC 18.0 H (4.8-10.8) x10^3/uL RBC 3.83 L (4.70-6.10) 10^6/uL Hgb 12.8 L (14.0-18.0) g/dL Hct 37.4 L (42.0-52.0) % MCV 97.7 H (80.0-94.0) fL MCH 33.4 H (27.0-31.0) pg MCHC 34.2 (32.0-36.0) g/dL RDW 13.7 (12.0-15.0) % Plt Count 124 L (130-450) 10^3/uL MPV 9.7 (7.4-11.4) fL Neut # (Auto) (1.5-6.6) 10^3/uL Lymph # (Auto) (1.5-3.5) 10^3/uL Charlotte # (Auto) (0.0-1.0) 10^3/uL Eos # (Auto) (0.0-0.7) 10^3/uL Baso # (Auto) (0.0-0.1) 10^3/uL Absolute Nucleated RBC x10^3/uL Nucleated RBC % /100WBC Anti-Xa Level ( - 0.7) U/mL Sodium (135-145) mmol/L Potassium (3.5-5.0) mmol/L Chloride (101-111) mmol/L Carbon Dioxide (21-32) mmol/L Anion Gap (6-13) BUN (6-20) mg/dL Creatinine (0.6-1.2) mg/dL Estimated GFR (MDRD) (>89) Glucose (70-100) mg/dL Lactic Acid 1.3 1.2 (0.5-2.2) mmol/L Calcium (8.5-10.3) mg/dL Troponin I (<0.49) ng/mL Troponin I High Sens (2.3-19.7) pg/mL 06/17/19 06/17/19 06/17/19 Range/Units 19:37 18:25 16:51 WBC (4.8-10.8) x10^3/uL RBC (4.70-6.10) 10^6/uL Hgb (14.0-18.0) g/dL Hct (42.0-52.0) % MCV (80.0-94.0) fL MCH (27.0-31.0) pg MCHC (32.0-36.0) g/dL RDW (12.0-15.0) % Plt Count (130-450) 10^3/uL MPV (7.4-11.4) fL Neut # (Auto) (1.5-6.6) 10^3/uL Lymph # (Auto) (1.5-3.5) 10^3/uL Charlotte # (Auto) (0.0-1.0) 10^3/uL Eos # (Auto) (0.0-0.7) 10^3/uL Baso # (Auto) (0.0-0.1) 10^3/uL Absolute Nucleated RBC x10^3/uL Nucleated RBC % /100WBC Anti-Xa Level 0.0 ( - 0.7) U/mL Sodium (135-145) mmol/L Potassium (3.5-5.0) mmol/L Chloride (101-111) mmol/L Carbon Dioxide (21-32) mmol/L Anion Gap (6-13) BUN (6-20) mg/dL Creatinine (0.6-1.2) mg/dL Estimated GFR (MDRD) (>89) Glucose (70-100) mg/dL Lactic Acid 3.0 H* (0.5-2.2) mmol/L Calcium (8.5-10.3) mg/dL Troponin I 0.99 H* (<0.49) ng/mL Troponin I High Sens 974.4 H* (2.3-19.7) pg/mL Impression and Recommendations - Palliative Care Impression: This is an 84-year-old gentleman with advanced age, with multiple comorbidities, and declining functional status. Patient now hospitalized for the second time with sepsis within the month, has responded to antibiotics and fluids. Palliative care to help establish goals of care. Recommendations/Counseling Done: 1. Generalized weakness. Patient to return [facility] on discharge, is current with their services. Patient and 's goals are for patient be able to navigate steps, and return to previous activities which included trips down to the beach. Patient with functional decline, does have cu stodial care set up, daughter expressed concerns regarding if patient were to continue to deteriorate about managing care and home setting. Did discuss in the context of the palliative care team, PRINCIPAL SOFTWARE ARCHITECT available for long-term planning if needed. 2. Advanced care planning. Family meeting done to establish goals of care, agreed on hoping for the best, weighing benefits and burdens of treatment dec isions as they occur, but also prepared for given patient's frail status his journey and trajectory could continue to decline. Introduced the role of palliative care support, would be interested in land inspector support. Patient is Hoahaoism, but does enjoy life review and his spirituality is important to him. We will pursue outpatient referral for support from primary Dr. Magana Time Spent: 100 minutes With greater than 50% of this done in counseling for goals of care, establishing rapport, family conference, coordination of care with hospitalist and PRINCIPAL SOFTWARE ARCHITECT.
--- NOTE | 2019-06-18 16:16 | PROVIDER PROGRESS NOTE ---
Subjective - Prog Note Date Prog Note Date: 06/18/19 - Subjective Pt reports feeling: Improved Subjective: pt report he feel improved and ate his breakfast by himself. pt denies fever, chest pain, shortness of breath. Pt's troponin level is steady running down. Current Medications - Current Medications Current Medications: Active Medications Acetaminophen (Tylenol) 650 mg PO Q4HR PRN PRN Reason: Pain 1 to 4 Aspirin (Tina) 325 mg PO DAILYWM [facility] Last Admin: 06/19/19 08:56 Dose: 325 mg Enoxaparin Sodium (Lovenox) 40 mg SUBQ DAILY [facility] Last Admin: 06/19/19 08:57 Dose: 40 mg Finasteride (Proscar) 5 mg PO DAILY [facility] Last Admin: 06/19/19 08:56 Dose: 5 mg Piperacillin Sod/Tazobactam (Sod 3.375 gm/ Sodium Chloride) 100 mls @ 25 mls/hr IV Q8H [facility] Last Admin: 06/19/19 13:30 Dose: 25 mls/hr Latanoprost (Xalatan Ophth Drops) 1 drops LEFTEYE QPM [facility] Last Admin: 06/18/19 21:10 Dose: 1 drops Multi-Ingredient Ointment (Zinc Oxide) 1 applic TOP PRN PRN PRN Reason: Skin Care Ondansetron HCl (Zofran Inj) 4 mg IVP Q6HR PRN PRN Reason: Nausea / Vomiting Ondansetron HCl (Zofran Odt) 4 mg TL Q6HR PRN PRN Reason: Nausea / Vomiting Oxycodone HCl (Roxicodone) 5 mg PO Q4HR PRN PRN Reason: Pain 5 to 7 Polyethylene Glycol (Miralax) 17 gm PO DAILY [facility] Last Admin: 06/19/19 09:00 Dose: Not Given Sodium Chloride (Normal Saline Flush 0.9%) 10 ml IVP PRN PRN PRN Reason: NEEDED PER PROVIDER ORDERS Last Admin: 06/18/19 14:03 Dose: 10 ml Sodium Chloride (Normal Saline Flush 0.9%) 10 ml IVP 0100,0900,1700 [facility] Last Admin: 06/19/19 13:32 Dose: Not Given Tamsulosin HCl (Flomax) 0.4 mg PO DAILY [facility] Last Admin: 08/09/19 08:56 Dose: 0.4 mg Timolol Maleate (Timoptic 0.5% Ophth Drops) 1 drops LEFTEYE DAILY [facility] Last Admin: 06/19/19 09:01 Dose: 1 drops Timolol 0.5% Ophth Drops [Timoptic 0.5% Ophth Drops] 1 drops LEFTEYE DAILY 06/18/19 Objective - Vital Signs/Intake & Output Reviewed Vital Signs: Yes Vital Signs: Vital Signs x48h Temp Pulse Resp BP Pulse Ox 06/18/19 15:50 36.8 C 66 18 112/62 97 06/18/19 14:21 36.5 C 60 18 90/55 L 95 Intake & Output: Intake & Output 06/15/19 06/16/19 06/17/19 06/18/19 23:59 23:59 23:59 23:59 Intake Total 7313.000 1126.667 Output Total 729 Balance 7313.000 397.667 - Objective General Appearance: positive: No acute distress, Alert. negative: Lethargic Eyes Bilateral: positive: Normal inspection, PERRL, No lid inflammation, Conjunctivae nml ENT: positive: ENT inspection nml, Pharynx nml, No signs of dehydration. negative: Purulent nasal drainage, Pharyngeal erythema, Oral lesions Neck: positive: Nml inspection, Thyroid nml, No JVD, Trachea midline. negative: Thyromegaly, Lymphadenopathy (R), Lymphadenopathy (L), Stiff neck, Swelling/bruising, Tracheal deviation Respiratory: positive: Chest non-tender, No respiratory distress, Breath sounds nml. negative: Wheezes, Rales, Rhonchi Cardiovascular: positive: Regular rate & rhythm, No murmur, No gallop. negative: Irregularly irregular, Extrasystoles, Tachycardia, Bradycardia, Systolic murmur, Diastolic murmur Peripheral Pulses: 2+ Radial (R), 2+ Radial (L), 2+ Dorsalis pedis (R), 2+ Dorsalis pedis (L) Abdomen: positive: Non-tender, No organomegaly, Nml bowel sounds, No distention. negative: Tenderness, Guarding, Rebound Back: positive: Nml inspection. negative: CVA tenderness (R), CVA tenderness (L) Skin: positive: Color nml, No rash, Warm, Dry. negative: Cyanosis, Diaphoresis, Pallor Extremities: positive: Non-tender, Full ROM, Nml appearance. negative: Calf t enderness, Joint swelling, Sarah's sign/cords Neurologic/Psychiatric: positive: Sensation nml, Mood/affect nml. negative: Weakness, Sensory loss, Facial droop, Slurred/abnml speech, Depressed mood/affect - Lab Results Fish Bones: 06/19/19 04:40 06/19/19 04:40 Other Labs: Lab Results x24hrs 06/18/19 06/18/19 06/18/19 Range/Units 09:56 09:14 05:15 WBC 14.5 H (4.8-10.8) x10^3/uL RBC 3.73 L (4.70-6.10) 10^6/uL Hgb 12.6 L (14.0-18.0) g/dL Hct 37.3 L (42.0-52.0) % MCV 100.0 H (80.0-94.0) fL MCH 33.8 H (27.0-31.0) pg MCHC 33.8 (32.0-36.0) g/dL RDW 14.0 (12.0-15.0) % Plt Count 120 L (130-450) 10^3/uL MPV 10.1 (7.4-11.4) fL Neut # (Auto) (1.5-6.6) 10^3/uL Lymph # (Auto) (1.5-3.5) 10^3/uL [place] # (Auto) (0.0-1.0) 10^3/uL Eos # (Auto) (0.0-0.7) 10^3/uL Baso # (Auto) (0.0-0.1) 10^3/uL Absolute Nucleated RBC x10^3/uL Nucleated RBC % /100WBC Anti-Xa Level ( - 0.7) U/mL Sodium 137 (135-145) mmol/L Potassium 4.0 (3.5-5.0) mmol/L Chloride 106 (101-111) mmol/L Carbon Dioxide 21 (21-32) mmol/L Anion Gap 10.0 (6-13) BUN 20 (6-20) mg/dL Creatinine 0.6 (0.6-1.2) mg/dL Estimated GFR (MDRD) 128 (>89) Glucose 112 H (70-100) mg/dL Lactic Acid (0.5-2.2) mmol/L Calcium 8.0 L (8.5-10.3) mg/dL Troponin I (<0.49) ng/mL Troponin I High Sens 681.8 H* (2.3-19.7) pg/mL 06/18/19 06/18/19 06/17/19 Range/Units 05:15 04:25 23:07 WBC 16.9 H (4.8-10.8) x10^3/uL RBC 3.88 L (4.70-6.10) 10^6/uL Hgb 13.0 L (14.0-18.0) g/dL Hct 38.2 L (42.0-52.0) % MCV 98.5 H (80.0-94.0) fL MCH 33.5 H (27.0-31.0) pg MCHC 34.0 (32.0-36.0) g/dL RDW 14.0 (12.0-15.0) % Plt Count 133 (130-450) 10^3/uL MPV 10.2 (7.4-11.4) fL Neut # (Auto) 14.8 H (1.5-6.6) 10^3/uL Lymph # (Auto) 0.7 L (1.5-3.5) 10^3/uL [place] # (Auto) 1.2 H (0.0-1.0) 10^3/uL Eos # (Auto) 0.0 (0.0-0.7) 10^3/uL Baso # (Auto) 0.1 (0.0-0.1) 10^3/uL Absolute Nucleated RBC 0.00 x10^3/uL Nucleated RBC % 0.0 /100WBC Anti-Xa Level ( - 0.7) U/mL Sodium (135-145) mmol/L Potassium (3.5-5.0) mmol/L Chloride (101-111) mmol/L Carbon Dioxide (21-32) mmol/L Anion Gap (6-13) BUN (6-20) mg/dL Creatinine (0.6-1.2) mg/dL Estimated GFR (MDRD) (>89) Glucose (70-100) mg/dL Lactic Acid (0.5-2.2) mmol/L Calcium (8.5-10.3) mg/dL Troponin I (<0.49) ng/mL Troponin I High Sens 907.9 H* 1013.4 H* (2.3-19.7) pg/mL 06/17/19 06/17/19 06/17/19 Range/Units 23:07 20:02 19:37 WBC 18.0 H (4.8-10.8) x10^3/uL RBC 3.83 L (4.70-6.10) 10^6/uL Hgb 12.8 L (14.0-18.0) g/dL Hct 37.4 L (42.0-52.0) % MCV 97.7 H (80.0-94.0) fL MCH 33.4 H (27.0-31.0) pg MCHC 34.2 (32.0-36.0) g/dL RDW 13.7 (12.0-15.0) % Plt Count 124 L (130-450) 10^3/uL MPV 9.7 (7.4-11.4) fL Neut # (Auto) (1.5-6.6) 10^3/uL Lymph # (Auto) (1.5-3.5) 10^3/uL [place] # (Auto) (0.0-1.0) 10^3/uL Eos # (Auto) (0.0-0.7) 10^3/uL Baso # (Auto) (0.0-0.1) 10^3/uL Absolute Nucleated RBC x10^3/uL Nucleated RBC % /100WBC Anti-Xa Level ( - 0.7) U/mL Sodium (135-145) mmol/L Potassium (3.5-5.0) mmol/L Chloride (101-111) mmol/L Carbon Dioxide (21-32) mmol/L Anion Gap (6-13) BUN (6-20) mg/dL Creatinine (0.6-1.2) mg/dL Estimated GFR (MDRD) (>89) Glucose (70-100) mg/dL Lactic Acid 1.3 1.2 (0.5-2.2) mmol/L Calcium (8.5-10.3) mg/dL Troponin I (<0.49) ng/mL Troponin I High Sens (2.3-19.7) pg/mL 06/17/19 06/17/19 06/17/19 Range/Units 19:37 18:25 16:51 WBC (4.8-10.8) x10^3/uL RBC (4.70-6.10) 10^6/uL Hgb (14.0-18.0) g/dL Hct (42.0-52.0) % MCV (80.0-94.0) fL MCH (27.0-31.0) pg MCHC (32.0-36.0) g/dL RDW (12.0-15.0) % Plt Count (130-450) 10^3/uL MPV (7.4-11.4) fL Neut # (Auto) (1.5-6.6) 10^3/uL Lymph # (Auto) (1.5-3.5) 10^3/uL [place] # (Auto) (0.0-1.0) 10^3/uL Eos # (Auto) (0.0-0.7) 10^3/uL Baso # (Auto) (0.0-0.1) 10^3/uL Absolute Nucleated RBC x10^3/uL Nucleated RBC % /100WBC Anti-Xa Level 0.0 ( - 0.7) U/mL Sodium (135-145) mmol/L Potassium (3.5-5.0) mmol/L Chloride (101-111) mmol/L Carbon Dioxide (21-32) mmol/L Anion Gap (6-13) BUN (6-20) mg/dL Creatinine (0.6-1.2) mg/dL Estimated GFR (MDRD) (>89) Glucose (70-100) mg/dL Lactic Acid 3.0 H* (0.5-2.2) mmol/L Calcium (8.5-10.3) mg/dL Troponin I 0.99 H* (<0.49) ng/mL Troponin I High Sens 974.4 H* (2.3-19.7) pg/mL ABX Reporting Has patient been on IV antibiotics over the past 48 hours?: Yes Sepsis Event Note (H) - Evaluation Possible source of Sepsis: positive: Genitourinary - Sepsis Criteria Sepsis Criteria: Recorded Temperature greater than 38.3C or Less than 36C, Recorded Heart Rate greater than 90 bpm, Recorded Respiratory Rate greater than 20, Respiratory: Increasing oxygen requirements, WBC count greater than 12,000 or less than 4000, SBP less than 90 mmHg Assessment/Plan - Problem List (1) Sepsis Impression: 06/18 improved. BP is stable, no more fever. pt report he feel great improvement. Lactic acid level is normal now. continue antibiotics continue tele and vital monitor recurrent Urosepsis with septic shock, low BP, fever, increase of HR, elevated lactic acid IVF of NS with bolus of NS for hydration and tissue perfusion treat with Rocephin tele and vital monitor continue lab and lactic acid monitor (2) demand myocardial ischemia pt has significant increase of Troponin level on last night, pt denies chest pain. EKG does not reveals elevated or depression of ST. pt has septic shock and lower BP. it is likely pt has demand myocardial ischemia. Pt has lower BP and can not tolerate beta-block now serial troponin, start Heparin drip per Dr. Parra tele and vital monitor discussed with pt's and daughter about pt's worsening medical conditions, and answer all their questions. supplement of O2 as need (3) Recurrent UTI Conclusion/Plan: 06/18 continue treatment of antibiotics, UA culture is pending. pt recently had three times of recurrent UTI. pt did not have Kolb. It is Un known the etiology to cause pt recurrent UTI treat with Rocephin followup UA culture educate pt prevention of recurrent UTI, advise pt followup urologist (4) Hypotension Conclusion/Plan: 06/18 great improved, now his BP is normal continue treat with antibiotics vital monitor pt's SBP is down to 88, it is likely caused by septic shock. IVF of NS with bolus and precaution of Fluid overload hold home HTN meds tele and vital monitor (5) Paroxysmal atrial fibrillation Conclusion/Plan: pt has hx of paroxysmal Afib, today EKG reveals sinus atrial tachycardia (7) History of CVA (cerebrovascular accident) Conclusion/Plan: stable, pt denies acute focal neurological deficits, reconcile home meds (8) Tremor Conclusion/Plan: chronic medical condition. stable, will continue support and reconcile home meds (9) BPH (benign prostatic hyperplasia) Conclusion/Plan: stable, will reconcile home meds Flomax and Proscar (10) Glaucoma Conclusion/Plan: stable, denies acute eye pain or vision change. reconcile home meds (11) Osteoarthritis Conclusion/Plan: stable, reconcile of home med Qualifiers: Sepsis type: sepsis due to unspecified organism Sepsis acute organ dysfunction status: unspecified Qualified Code(s): A41.9 - Sepsis, unspecified organism
[2019-06-18] MEDS ORDERED: ENOXAPARIN 80 MG/0.8 ML SYRINGE SUBQ SCH (16:31)
[2019-06-18] MEDS ORDERED: TIMOLOL 0.5% OPHTH DROPS LEFTEYE SCH (21:00)
[2019-06-18] MEDS: LATANOPROST 0.005% OPHTH DROPS LEFTEYE SCH (21:10)
[2019-06-19] MEDS: SODIUM CHLORIDE FLUSH 0.9% 10 ML SYRINGE IVP SCH ×4 (00:20→23:58)
[2019-06-19 05:03] LABS: BASOPHILS % (AUTO) 0.3 %; EOSINOPHILS # (AUTO) 0.1 10^3/uL (0.0-0.7); EOSINOPHILS % (AUTO) 1.3 %; HGB - HEMOGLOBIN 12.5 g/dL (14.0-18.0); LYMPHOCYTES # (AUTO) 0.8 10^3/uL (1.5-3.5); LYMPHOCYTES % (AUTO) 7.7 %; MEAN CORPUSCULAR HEMOGLOBIN 33.4 pg (27.0-31.0); MEAN CORPUSCULAR HGB CONC 33.5 g/dL (32.0-36.0); MEAN CORPUSCULAR VOLUME 99.7 fL (80.0-94.0); MEAN PLATELET VOLUME 10.4 fL (7.4-11.4); MONOCYTES % (AUTO) 9.2 %; NEUTROPHILS # (AUTO) 8.5 10^3/uL (1.5-6.6); NEUTROPHILS % (AUTO) 81.1 %; PLT - PLATELET COUNT 120 10^3/uL (130-450); RED BLOOD COUNT 3.74 10^6/uL (4.70-6.10); RED CELL DISTRIBUTION WIDTH 13.9 % (12.0-15.0); WHITE BLOOD COUNT 10.5 x10^3/uL (4.8-10.8)
[2019-06-19 05:10] LABS: CALCIUM 8.4 mg/dL (8.5-10.3); CREATININE 0.8 mg/dL (0.6-1.2)
[2019-06-19] MEDS ORDERED: diltiaZEM INJ 5 MG/ML VIAL IVP ONE (06:35)
[2019-06-19] MEDS: PIPERACILLIN/TAZOBACTAM 3.375 GM in SODIUM CHLORIDE 0.9% MINIBAG 100 ML IV SCH ×3 (06:55→21:00)
[2019-06-19] MEDS: FINASTERIDE 5 MG TABLET PO SCH (08:56)
[2019-06-19] MEDS: ASPIRIN 325 MG TABLET PO SCH (08:56)
[2019-06-19] MEDS: TAMSULOSIN 0.4 MG CAPSULE PO SCH (08:56)
[2019-06-19] MEDS: ENOXAPARIN 40 MG/0.4 ML SYRINGE SUBQ SCH (08:57)
[2019-06-19] MEDS: POLYETHYLENE GLYCOL 3350 17 GM PACKET PO SCH (09:00)
[2019-06-19] MEDS: TIMOLOL 0.5% OPHTH DROPS LEFTEYE SCH (09:01)
--- NOTE | 2019-06-19 15:08 | PROVIDER PROGRESS NOTE ---
Subjective - Prog Note Date Prog Note Date: 06/19/19 - Subjective Pt reports feeling: Improved Subjective: pt report he feel better, denies fever, chill, chest pain, shortness of breath. pt has recurrence of urosepsis. UA and blood culture are both positive for gram positive Cocci. Pt really need sensitive study to choose the correct antibiotics and possible prevention of future infection and sepsis, bring back to hospital again. Sensitive study has the result until tomorrow. Current Medications - Current Medications Current Medications: Active Medications Acetaminophen (Tylenol) 650 mg PO Q4HR PRN PRN Reason: Pain 1 to 4 Aspirin (Tina) 325 mg PO DAILYWM [facility] Last Admin: 06/19/19 08:56 Dose: 325 mg Enoxaparin Sodium (Lovenox) 40 mg SUBQ DAILY [facility] Last Admin: 06/19/19 08:57 Dose: 40 mg Finasteride (Proscar) 5 mg PO DAILY [facility] Last Admin: 06/19/19 08:56 Dose: 5 mg Piperacillin Sod/Tazobactam (Sod 3.375 gm/ Sodium Chloride) 100 mls @ 25 mls/hr IV Q8H [facility] Last Admin: 06/19/19 13:30 Dose: 25 mls/hr Latanoprost (Xalatan Ophth Drops) 1 drops LEFTEYE QPM [facility] Last Admin: 06/18/19 21:10 Dose: 1 drops Multi-Ingredient Ointment (Zinc Oxide) 1 applic TOP PRN PRN PRN Reason: Skin Care Ondansetron HCl (Zofran Inj) 4 mg IVP Q6HR PRN PRN Reason: Nausea / Vomiting Ondansetron HCl (Zofran Odt) 4 mg TL Q6HR PRN PRN Reason: Nausea / Vomiting Oxycodone HCl (Roxicodone) 5 mg PO Q4HR PRN PRN Reason: Pain 5 to 7 Polyethylene Glycol (Miralax) 17 gm PO DAILY [facility] Last Admin: 06/19/19 09:00 Dose: Not Given Sodium Chloride (Normal Saline Flush 0.9%) 10 ml IVP PRN PRN PRN Reason: NEEDED PER PROVIDER ORDERS Last Admin: 06/18/19 14:03 Dose: 10 ml Sodium Chloride (Normal Saline Flush 0.9%) 10 ml IVP 0100,0900,1700 [facility] Last Admin: 06/19/19 13:32 Dose: Not Given Tamsulosin HCl (Flomax) 0.4 mg PO DAILY [facility] Last Admin: 06/19/19 08:56 Dose: 0.4 mg Timolol Maleate (Timoptic 0.5% Ophth Drops) 1 drops LEFTEYE DAILY [facility] Last Admin: 06/19/19 09:01 Dose: 1 drops Timolol 0.5% Ophth Drops [Timoptic 0.5% Ophth Drops] 1 drops LEFTEYE DAILY 06/18/19 Objective - Vital Signs/Intake & Output Reviewed Vital Signs: Yes Vital Signs: Vital Signs x48h Temp Pulse Resp BP 06/19/19 11:32 37.1 C 66 20 121/75 06/19/19 07:42 36.7 C 77 20 131/82 H 06/19/19 07:10 72 127/95 H Intake & Output: Intake & Output 06/16/19 06/17/19 06/18/19 06/19/19 23:59 23:59 23:59 23:59 Intake Total 7313.000 1466.667 880 Output Total 729 Balance 7313.000 737.667 880 - Objective General Appearance: positive: No acute distress, Alert. negative: Lethargic Eyes Bilateral: positive: Normal inspection, PERRL, No lid inflammation, Conjunctivae nml ENT: positive: ENT inspection nml, Pharynx nml, No signs of dehydration. negative: Purulent nasal drainage, Pharyngeal erythema, Oral lesions Neck: positive: Nml inspection, Thyroid nml, No JVD, Trachea midline. negative: Thyromegaly, Lymphadenopathy (R), Lymphadenopathy (L), Swelling/bruising, Tracheal deviation Respiratory: positive: Chest non-tender, No respiratory distress, Breath sounds nml. negative: Wheezes, Rales, Rhonchi Cardiovascular: positive: Regular rate & rhythm, No murmur, No gallop, Irregularly irregular. negative: Extrasystoles, Tachycardia, Bradycardia, JVD present, Systolic murmur, Diastolic murmur Peripheral Pulses: 2+ Radial (R), 2+ Radial (L), 2+ Dorsalis pedis (R), 2+ Dorsalis pedis (L) Abdomen: positive: Non-tender, No organomegaly, Nml bowel sounds, No distention. negative: Tenderness, Guarding, Rebound Back: positive: Nml inspection. negative: CVA tenderness (R), CVA tenderness (L) Skin: positive: Color nml, No rash, Warm, Dry. negative: Cyanosis, Diaphoresis, Pallor Extremities: positive: Non-tender, Full ROM, Nml appearance. negative: Calf tenderness, Joint swelling, Sarah's sign/cords Neurologic/Psychiatric: positive: Oriented x3, Sensation nml, Mood/affect nml. negative: Weakness, Sensory loss, Facial droop, Slurred/abnml speech, Depressed mood/affect - Lab Results Fish Bones: 06/19/19 04:40 06/19/19 04:40 Other Labs: Lab Results x24hrs 06/19/19 06/19/19 06/18/19 Range/Units 04:40 04:40 21:49 WBC 10.5 (4.8-10.8) x10^3/uL RBC 3.74 L (4.70-6.10) 10^6/uL Hgb 12.5 L (14.0-18.0) g/dL Hct 37.3 L (42.0-52.0) % MCV 99.7 H (80.0-94.0) fL MCH 33.4 H (27.0-31.0) pg MCHC 33.5 (32.0-36.0) g/dL RDW 13.9 (12.0-15.0) % Plt Count 120 L (130-450) 10^3/uL MPV 10.4 (7.4-11.4) fL Neut # (Auto) 8.5 H (1.5-6.6) 10^3/uL Lymph # (Auto) 0.8 L (1.5-3.5) 10^3/uL [place] # (Auto) 1.0 (0.0-1.0) 10^3/uL Eos # (Auto) 0.1 (0.0-0.7) 10^3/uL Baso # (Auto) 0.0 (0.0-0.1) 10^3/uL Absolute Nucleated RBC 0.00 x10^3/uL Nucleated RBC % 0.0 /100WBC Sodium 137 (135-145) mmol/L Potassium 4.1 (3.5-5.0) mmol/L Chloride 105 (101-111) mmol/L Carbon Dioxide 22 (21-32) mmol/L Anion Gap 10.0 (6-13) BUN 25 H (6-20) mg/dL Creatinine 0.8 (0.6-1.2) mg/dL Estimated GFR (MDRD) 92 (>89) Glucose 118 H (70-100) mg/dL Calcium 8.4 L (8.5-10.3) mg/dL Troponin I High Sens 469.9 H* (2.3-19.7) pg/mL 06/18/19 Range/Units 15:51 WBC (4.8-10.8) x10^3/uL RBC (4.70-6.10) 10^6/uL Hgb (14.0-18.0) g/dL Hct (42.0-52.0) % MCV (80.0-94.0) fL MCH (27.0-31.0) pg MCHC (32.0-36.0) g/dL RDW (12.0-15.0) % Plt Count (130-450) 10^3/uL MPV (7.4-11.4) fL Neut # (Auto) (1.5-6.6) 10^3/uL Lymph # (Auto) (1.5-3.5) 10^3/uL [place] # (Auto) (0.0-1.0) 10^3/uL Eos # (Auto) (0.0-0.7) 10^3/uL Baso # (Auto) (0.0-0.1) 10^3/uL Absolute Nucleated RBC x10^3/uL Nucleated RBC % /100WBC Sodium (135-145) mmol/L Potassium (3.5-5.0) mmol/L Chloride (101-111) mmol/L Carbon Dioxide (21-32) mmol/L Anion Gap (6-13) BUN (6-20) mg/dL Creatinine (0.6-1.2) mg/dL Estimated GFR (MDRD) (>89) Glucose (70-100) mg/dL Calcium (8.5-10.3) mg/dL Troponin I High Sens 600.6 H* (2.3-19.7) pg/mL ABX Reporting Has patient been on IV antibiotics over the past 48 hours?: Yes Sepsis Event Note (H) - Evaluation Possible source of Sepsis: positive: Genitourinary - Sepsis Criteria Sepsis Criteria: Recorded Temperature greater than 38.3C or Less than 36C, Recorded Heart Rate greater than 90 bpm, Recorded Respiratory Rate greater than 20, Respiratory: Increasing oxygen requirements, WBC count greater than 12,000 or less than 4000, SBP less than 90 mmHg Assessment/Plan - Problem List (1) Sepsis Impression: 06/19 continue improved. normal BP. pt feel better. continue antibiotics Zosyn. sensitive study is pending 06/18 improved. BP is stable, no more fever. pt report he feel great improvement. Lactic acid level is normal now. continue antibiotics continue tele and vital monitor recurrent Urosepsis with septic shock, low BP, fever, increase of HR, elevated lactic acid IVF of NS with bolus of NS for hydration and tissue perfusion treat with Rocephin tele and vital monitor continue lab and lactic acid monitor (2) demand myocardial ischemia 06/19 Troponin steadily is running down, BP is normal stop Heparin drip and started on Aspirin pt has significant increase of Troponin level on last night, pt denies chest pain. EKG does not reveals elevated or depression of ST. pt has septic shock and lower BP. it is likely pt has demand myocardial ischemia. Pt has lower BP and can not tolerate beta-block now serial troponin, start Heparin drip per Dr. Parra tele and vital monitor discussed with pt's and daughter about pt's worsening medical conditions, and answer all their questions. supplement of O2 as need (3) Recurrent UTI Conclusion/Plan: 06/18 continue treatment of antibiotics, UA culture is pending. pt recently had three times of recurrent UTI. pt did not have Kolb. It is Unknown the etiology to cause pt recurrent UTI treat with Rocephin followup UA culture educate pt prevention of recurrent UTI, advise pt followup urologist (4)bacteremia blood culture is positive for gram positive Cocci, sensitivity is pending continue antibiotics zosyn (5) Hypotension Conclusion/Plan: 06/19 resolved 06/18 great improved, now his BP is normal continue treat with antibiotics vital monitor pt's SBP is down to 88, it is likely caused by septic shock. IVF of NS with bolus and precaution of Fluid overload hold home HTN meds tele and vital monitor (6) Paroxysmal atrial fibrillation Conclusion/Plan: pt has hx of paroxysmal Afib, today EKG reveals sinus atrial tachycardia (7) History of CVA (cerebrovascular accident) Conclusion/Plan: stable, pt denies acute focal neurological deficits, reconcile home meds (8) Tremor Conclusion/Plan: chronic medical condition. stable, will continue support and reconcile home meds (9) BPH (benign prostatic hyperplasia) Conclusion/Plan: stable, will reconcile home meds Flomax and Proscar (10) Glaucoma Conclusion/Plan: stable, denies acute eye pain or vision change. reconcile home meds (11) Osteoarthritis Conclusion/Plan: stable, reconcile of home med Qualifiers: Sepsis type: sepsis due to unspecified organism Sepsis acute organ dysfun ction status: unspecified Qualified Code(s): A41.9 - Sepsis, unspecified organism
[2019-06-19] MEDS: LATANOPROST 0.005% OPHTH DROPS LEFTEYE SCH (21:00)
[2019-06-20 05:25] LABS: BASOPHILS % (AUTO) 0.3 %; EOSINOPHILS # (AUTO) 0.1 10^3/uL (0.0-0.7); EOSINOPHILS % (AUTO) 0.8 %; LYMPHOCYTES # (AUTO) 1.1 10^3/uL (1.5-3.5); LYMPHOCYTES % (AUTO) 11.9 %; MEAN CORPUSCULAR HEMOGLOBIN 33.1 pg (27.0-31.0); MEAN CORPUSCULAR HGB CONC 33.3 g/dL (32.0-36.0); MEAN CORPUSCULAR VOLUME 99.2 fL (80.0-94.0); MEAN PLATELET VOLUME 10.4 fL (7.4-11.4); MONOCYTES # (AUTO) 0.8 10^3/uL (0.0-1.0); MONOCYTES % (AUTO) 8.7 %; NEUTROPHILS # (AUTO) 7.1 10^3/uL (1.5-6.6); NEUTROPHILS % (AUTO) 77.9 %; PLT - PLATELET COUNT 129 10^3/uL (130-450); RED BLOOD COUNT 3.93 10^6/uL (4.70-6.10); RED CELL DISTRIBUTION WIDTH 13.7 % (12.0-15.0); WHITE BLOOD COUNT 9.2 x10^3/uL (4.8-10.8)
[2019-06-20 05:31] LABS: CALCIUM 8.5 mg/dL (8.5-10.3); CREATININE 0.7 mg/dL (0.6-1.2)
[2019-06-20] MEDS: PIPERACILLIN/TAZOBACTAM 3.375 GM in SODIUM CHLORIDE 0.9% MINIBAG 100 ML IV SCH ×2 (06:05→13:53)
[2019-06-20] MEDS ORDERED: diltiaZEM INJ 5 MG/ML VIAL IVP ONE (06:44)
[2019-06-20] MEDS: SODIUM CHLORIDE FLUSH 0.9% 10 ML SYRINGE IVP SCH (08:05)
[2019-06-20] MEDS: ASPIRIN 325 MG TABLET PO SCH (08:08)
[2019-06-20] MEDS: TAMSULOSIN 0.4 MG CAPSULE PO SCH (08:08)
[2019-06-20] MEDS: FINASTERIDE 5 MG TABLET PO SCH (08:08)
[2019-06-20] MEDS: POLYETHYLENE GLYCOL 3350 17 GM PACKET PO SCH (08:09)
[2019-06-20] MEDS: ENOXAPARIN 40 MG/0.4 ML SYRINGE SUBQ SCH (08:09)
[2019-06-20] MEDS ORDERED: METOPROLOL 5 MG/5 ML VIAL IVP PRN (09:11)
[2019-06-20] MEDS: TIMOLOL 0.5% OPHTH DROPS LEFTEYE SCH (09:23)
[2019-06-20] MEDS ORDERED: METOPROLOL SUCCINATE 25 MG TABLET PO SCH (10:00)
--- NOTE | 2019-06-20 12:07 | XRAY Report ---
Reason: SOB Procedure Date: 06/20/2019 Accession Number: [id number] / [id number] Procedure: XR - Chest 1 View X-Ray CPT Code: 67624 FULL RESULT: EXAM: CHEST RADIOGRAPHY EXAM DATE: 06/20/2019 11:33 AM. CLINICAL HISTORY: Shortness of breath. COMPARISON: CHEST 1 VIEW 06/17/2019 7:58 PM. TECHNIQUE: 1 view. FINDINGS: Lungs/Pleura: Low lung volumes noted. Moderate pulmonary edema pattern is present, with bilateral basilar atelectasis versus consolidation. Mediastinum: Stable cardiomegaly. Other: None. IMPRESSION: 1. Stable moderate pulmonary edema pattern with bibasilar atelectasis versus consolidation. 2. Stable cardiomegaly. [facility]
[2019-06-20] MEDS ORDERED: IOVERSOL 320 100 ML VIAL IVP ONE ×2 (12:58→13:30)
[2019-06-20] MEDS: SODIUM CHLORIDE FLUSH 0.9% 10 ML SYRINGE IVP PRN (13:34)
--- NOTE | 2019-06-20 14:19 | CT Report ---
Reason: dyspnea Procedure Date: 06/20/2019 Accession Number: [id number] / [id number] Procedure: CT - ANGIO CHEST W/WO CPT Code: FULL RESULT: EXAM: CT ANGIOGRAM CHEST EXAM DATE: 06/20/2019 01:29 PM. CLINICAL HISTORY: Dyspnea. COMPARISON: None. TECHNIQUE: Routine helical imaging was performed through the chest in the pulmonary arterial phase. IV Contrast: OPTI 320 80ML. Reconstructions: Coronal 3-D MIP reconstructions.Sagittal and coronal. In accordance with CT protocol optimization, one or more of the following dose reduction techniques were utilized for this exam: automated exposure control, adjustment of mA and/or KV based on patient size, or use of iterative reconstructive technique. FINDINGS: Pulmonary Arteries: Diagnostic quality: Adequate through the segmental arteries. There is probable admixture artifact, less likely pulmonary emboli seen about the left lingula and lower lobe pulmonary artery, without obvious correlate on coronal and sagittal reconstruction. RV/LV is within normal limits. There is no interventricular septal bowing. There is no reflux of contrast material in the IVC. Lungs/Pleura: There are small bilateral pleural effusions noted, with patchy atelectatic changes prominent at the lung bases versus consolidation. Motion artifact limits evaluation. Mediastinum: Shotty, subcentimeter lymph nodes seen in the mediastinum in addition to bilateral soledad. Heart size is within normal limits. There is small pericardial effusion. Thoracic Aorta: Mild prominence of the ascending aorta, measuring 4.2 cm in greatest dimension. Upper Abdomen: There are multiple hypoattenuation seen throughout the liver suggestive of possible cysts. Possible complicated cysts seen about the left hepatic lobe. Other: Moderate severe degenerative changes seen in the thoracic spine, with likely S-shaped scoliosis present. IMPRESSION: 1. Probable admixture artifact, less likely pulmonary emboli seen about the left lingula and lower lobe pulmonary artery without obvious correlate on coronal and sagittal reconstruction. 2. Patchy bilateral atelectatic changes, with atelectasis versus consolidation prominent at the left base posteriorly. There are associated small bilateral effusions. 3. Nonspecific subcentimeter lymph nodes seen about the mediastinum and bilateral soledad. 4. Mild prominence of the ascending aorta measuring 4.2 cm in greatest dimension. 5. Multiple hypoattenuation seen throughout the liver suggestive of cysts. 6. Moderate severe degenerative changes seen in the thoracic spine, with likely S-shaped scoliosis noted. [facility] The call report notification system was initiated by Dr. Doc Schaefer at 02:12 PM on 06/20/2019. The above call report findings probable admixture artifact, less likely PE were discussed with Brewer by Dr. Doc Schaefer at 02:17 PM on 06/20/2019.
--- NOTE | 2019-06-20 14:46 | Discharge Plan ---
Discharge Plan Problem Reviewed?: Yes Disposition: 06 Home Health Service Condition: Poor Prescriptions: Cephalexin [Keflex] 500 mg PO BID #20 capsule Metoprolol Succinate [Toprol Xl] 25 mg PO DAILY #10 tablet Saccharomyces Boulardii [Florastor] 250 mg PO BID #20 capsule Diet: Regular Activity Restrictions: Activity as Tolerated Shower Restrictions: No (fall precaution) Instruction Topics: Saccharomyces boulardii Florastor oral dosage forms, Cephalexin tablets or capsules, Metoprolol tablets Health Concerns: UTI and urosepsis, Afib RVR Plan of Treatment: Antibiotics is prescribed for you to treat UTI. You developed Afib with RVR today, after treatment, your heart rhythm became sinus rhythm, Metoprolol is prescribed for you to control the pause and blood pressure. Care Goals: stabilization of your medical conditions Assessment: assessment as the above. Additional Instructions or Follow Up instructions: you may followup your PCP in one week. Home health PT is arranged for you. Should your symptoms return or worsen, you may present ER or call 911 for help. No Smoking: If you smoke, Please STOP! Call for help. Follow-up with: Braxton Magana MD [Primary Care Provider] -
--- NOTE | 2019-06-20 15:34 | DISCHARGE SUMMARY ---
Discharge Summary Discharge Date: 06/20/19 Discharging Provider: BROWNE Primary Care Provider: Dr. Magana Condition at Discharge: Poor Discharge Disposition: Home Health Service Discharge Facility Name: home - DIAGNOSES Admission Diagnoses: (1) Sepsis (2) Recurrent UTI (3) Hypotension (4) Paroxysmal atrial fibrillation (5) History of CVA (cerebrovascular accident) (6) Tremor (7) BPH (benign prostatic hyperplasia) (8) Glaucoma (9) Osteoarthritis Discharge Diagnoses with Status of Each Condition: (1) Sepsis resolved (2) demand myocardial ischemia resolved/stable (3) Recurrent UTI stable (4)bacteremia stable/resolved (5) Hypotension resolved (6) Paroxysmal atrial fibrillation stable (7) History of CVA (cerebrovascular accident) stable (8) Tremor stable (9) BPH (benign prostatic hyperplasia) stable (10) Glaucoma stable (11) Osteoarthritis stable (12) weakness stable, home health PT is arranged to pt - HPI History of Present Illness: Mr. Farmer is an 84-year old male with a past medical history significant for recurrent UTI with recent hospitalization for urosepsis, hypertension, proximal muscle weakness, glaucoma, macular degeneration, legal blindness, essential tremor, CVA, dementia, decubitis ulcer, left hip pain, osteoporosis, BPH, and frequent falls, and tremors, who present ER complain of dysuria and hematuria. Pt's is not at hospital now. Upon examination, Pt is alert and oriented to person, easy to fall into sleep. Pt states he has been urinating more often and there is blood at his urine, and he denies fever in the home. pt was febrile at hospital at temperature 38.7, BP at 88/54, HR 98, RR 26, 94% sats on 4 liter of O2. UA indicate pyuria. pt also has elevated lactic acid at 2.4. WBC is 7.8. Pt denies chest pain, cough, abdominal pain, nausea, vomiting. pt is admitted of urosepsis. - HOSPITAL COURSE Hospital Course: pt was admitted for dysuria. Then pt was found to have urosepsis and low BP. This happened as the previous admission. pt was found to have bacteremia as well. pt was found to have demand RI, which was likely caused by sepsis and low BP. Then pt developed afib with RVR, after treatment, his afib RVR was resolved, and pt turned to SR. Metoprolol is prescribed for that. The detail hospital course as the below: (1) Sepsis pt was found to have fever, low BP and tachycardia. pt has sepsis. after antibiotics treatment, sepsis is resolved. pt return hemodynamical stable. pt is prescribed antibiotics Keflex (2) demand myocardial ischemia pt has significant increase of Troponin level. pt denies chest pain. Initially pt had Heparin drip then heparin was stop, pt started on Aspirin. pt's troponin level was significant and steadily running down after treatment. pt became hemodynamic stable after treatment. pt is prescribed Metoprolol. (3) Recurrent UTI pt was fount to have UTI, bacterial is gram positive cocci. pt was treated with antibiotics. I discussed with pt's for pt's care, continue to finish current antibiotics course, followup PCP and urologist as out-pt, pt may need long time preventive antibiotics. (4)bacteremia blood culture is positive for gram positive Cocci, sensitivity is pending pt is prescribed antibiotics according to gram positive cocci usually sensitivit y (5) Hypotension resolved, likely be caused by urosepsis (6) Paroxysmal atrial fibrillation pt developed transient afib with RVR at HR 130-140. after Metoprolol treated pt, pt became SR again. Metoprolol is prescribed to pt. (7) History of CVA (cerebrovascular accident) Conclusion/Plan: stable (8) Tremor chronic medical condition. stable (9) BPH (benign prostatic hyperplasia) stable (10) Glaucoma stable (11) Osteoarthritis stable, followup PCP (12) weakness stable, home health PT is arranged to pt - ALLERGIES Allergies/Adverse Reactions: Allergies Allergy/AdvReac Type Severity Reaction Status Date / Time No Known Drug Allergies Allergy Verified 06/17/19 13:42 - MEDICATIONS Home Medications: Ambulatory Orders Medication Instructions Recorded Confirmed Aspirin/Dipyridamole [Aggrenox] 1 cap PO DAILY #0 05/25/19 06/18/19 Cholecalciferol (Vitamin D3) 2,000 unit PO DAILY #0 05/25/19 06/18/19 [Vitamin D3] Finasteride [Proscar] 5 mg PO DAILY #1 tablet 05/25/19 06/18/19 Latanoprost 0.005% Ophth Drops 1 drops LEFTEYE QPM #0 05/25/19 06/18/19 [Xalatan Ophth Drops] Memantine HCl [Namenda] 10 mg PO BID #0 05/25/19 06/18/19 Tamsulosin [Flomax] 0.4 mg PO DAILY capsule 05/25/19 06/18/19 Timolol 0.5% Ophth Drops [Timoptic 1 drops LEFTEYE DAILY 06/18/19 06/18/19 0.5% Ophth Drops] Cephalexin [Keflex] 500 mg PO BID #20 capsule 06/20/19 Metoprolol Succinate [Toprol Xl] 25 mg PO DAILY #10 tablet 06/20/19 Saccharomyces Boulardii [Florastor] 250 mg PO BID #20 capsule 06/20/19 - PHYSICAL EXAM AT DISCHARGE General Appearance: positive: No acute distress, Alert. negative: Lethargic Eyes Bilateral: positive: Normal inspection, PERRL, No lid inflammation, Conjunctivae nml ENT: positive: ENT inspection nml, Pharynx nml, No signs of dehydration. negative: Purulent nasal drainage, Pharyngeal erythema, Oral lesions Neck: positive: Nml inspection, Thyroid nml, No JVD, Trachea midline. negative: Thyromegaly, Lymphadenopathy (R), Stiff neck, Swelling/bruising, Tracheal deviation Respiratory: positive: Chest non-tender, No respiratory distress, Breath sounds nml. negative: Wheezes, Rales, Rhonchi Cardiovascular: positive: Regular rate & rhythm, No murmur, No gallop. negative : Irregularly irregular, Extrasystoles, Tachycardia, Bradycardia, JVD present, Systolic murmur, Diastolic murmur Peripheral Pulses: positive: 2+ Abdomen: positive: Non-tender, No organomegaly, Nml bowel sounds, No distention. negative: Tenderness, Guarding, Rebound Back: positive: Nml inspection. negative: CVA tenderness (R), CVA tenderness (L) Skin: positive: Color nml, No rash, Warm, Dry. negative: Cyanosis, Diaphoresis, Pallor Extremities: positive: Non-tender, Nml appearance. negative: Calf tenderness, Joint swelling, Sarah's sign/cords Neurologic/Psychiatric: positive: Oriented x3, Sensation nml, Mood/affect nml. negative: Weakness, Sensory loss, Facial droop, Slurred/abnml speech, Depressed mood/affect - LABS Result Diagrams: 06/20/19 05:08 06/20/19 05:08 - SEPSIS Possible source of Sepsis: Genitourinary Sepsis Criteria: Recorded Temperature greater than 38.3C or Less than 36C, Recorded Heart Rate greater than 90 bpm, Recorded Respiratory Rate greater than 20, Respiratory: Increasing oxygen requirements, WBC count greater than 12,000 or less than 4000, SBP less than 90 mmHg - FOLLOW UP Follow Up: Antibiotics is prescribed for you to treat UTI. You developed Afib with RVR today, after treatment, your heart rhythm became sinus rhythm, Metoprolol is prescribed for you to control the pause and blood pressure. you may followup your PCP in one week. Home health PT is arranged for you. Should your symptoms return or worsen, you may present ER or call 911 for help. - TIME SPENT Time Spent in Discharge (Minutes): 60
[2019-06-20 16:13] VITALS: BP 153/99
== END 2019-06-20 16:00 | disposition home health service (06) | DRG 871 ==
LOC: EDUNIT# → ED 13:26 → MS2 15:04
PROVIDERS: ADMIT Nurse Practitioner Gerontology; ATTEND Nurse Practitioner Gerontology
DX: A41.9 Sepsis, unspecified organism (principal); A41.89 Other specified sepsis; R65.21 Severe sepsis with septic shock; N39.0 Urinary tract infection, site not specified; I24.8 Other forms of acute ischemic heart disease; I48.0 Paroxysmal atrial fibrillation; N40.1 Benign prostatic hyperplasia with lower urinary tract symptoms; I10 Essential (primary) hypertension; Z79.82 Long term (current) use of aspirin; G25.0 Essential tremor; F03.90 Unspecified dementia, unspecified severity, without behavioral disturbance, psychotic disturbance, mood disturbance, and anxiety; M81.0 Age-related osteoporosis without current pathological fracture; M19.90 Unspecified osteoarthritis, unspecified site; H40.9 Unspecified glaucoma; H35.30 Unspecified macular degeneration; H54.8 Legal blindness, as defined in USA; I69.319 Unspecified symptoms and signs involving cognitive functions following cerebral infarction; R35.0 Frequency of micturition; R35.1 Nocturia; R31.0 Gross hematuria; Z66 Do not resuscitate; Z51.5 Encounter for palliative care; Z91.81 History of falling; Z79.899 Other long term (current) drug therapy; Z87.01 Personal history of pneumonia (recurrent)
CPT/HCPCS: 36415; 71045; 71275; 76770; 80048; 80053; 81001; 81599; 83605; 83690; 84484; 85025; 85027; 85520; 87040; 87077; 87086; 93005; 96365; 97161; 99223; 99284; 99285; A9270; J0131; J1650; J3370; J7120; Q9967; 81003

== ENCOUNTER 2019-06-24 07:59 | Outpatient (CLI) | payer MEDICARE, BC | END 2019-06-24 08:00 | disposition E | LOC: EMS 07:59 | PROVIDERS: ATTEND Surgery ==